=== PATIENT | male | born 1960 | race Caucasian/White ===

== ENCOUNTER 2017-12-05 08:58 | Emergency (ER) | payer OTHER, SELFPAY ==
[2017-12-05 08:59] VITALS: BP 156/86; PULSE 84; RESP 16; TEMP 36; O2SAT 95; BMI 33.0
--- NOTE | 2017-12-05 09:29 | ED.VISSUMM ---
- ER Visit Summary Date of Service: 12/05/17 Chief Complaint: Possible morphine withdrawal History of Present Illness: The patient is a 56 M who has a morphine pump. He is concerned the pump was not working appropriately. The last 1 week he has had waxing and waning body aches and fatigue similar to prior bouts of withdrawal when the pump is not functioning appropriately. His pump was placed in March 2017 and is refilled every 3 months. He is next scheduled to have it refilled the end of November. Patient is getting 6.5 mg of morphine per day from his morphine pump. Physical Examination: Vital signs are unremarkable. Patient's lying in bed no acute distress. Head neck examination is unremarkable. Heart is regular rate and rhythm with systolic ejection murmur. Lung sounds are grossly clear. Abdomen is soft nontender. Pain pump is palpable in the left lower quadrant. Test Results: CBC and chemistry studies are unremarkable. Emergency Department Course and Treatment: She was initially given 2 mg of IV morphine along with Zofran. On repeat evaluation he did report his symptoms were improved. I discussed his care with the office staff for his pain management doctor. A request has been sent off to the practitioner who is covering today as far as any other medication that may be needed. They will interrogate his pain pump in 2 days. We will give the patient a single dose of morphine 4 mg IV prior to discharge. Any further prescriptions will come from pain management. Treatment Plan: [] Disposition: Discharge Impression: 1. Body aches, improved 2. Pain pump malfunction This note was generated with [employer] dictation software. It may contain incorrect words, spelling, and punctuation that were not noted in review of the chart prior to signing ED Disposition - Plan for ED Patient: Chief Complaint: General Illness Referrals: Lori Santana DO [Primary Care Provider] -
[2017-12-05] MEDS: Morphine 2 MG/ML Syringe IV (09:57)
[2017-12-05] MEDS: Ondansetron 4 MG/2 ML Vial IV ×2 (09:58→11:24)
[2017-12-05] MEDS: 0.9% Normal Saline 1,000 ML 150 ML IV (09:58)
[2017-12-05 10:02] LABS: Absolute Lymphocyte Count 1.08 X10^3/ul (0.83-4.51); Absolute Neutrophil Count 5.1 X10^3/uL (2.0-7.7); Basophil# 0.03 X10^3/uL; Basophil% 0.5 % (0-1); Eosinophil# 0.06 X10^3/uL; Eosinophils% 0.9 % (0-5); Hematocrit 45.6 % (40-54); Hemoglobin 15.7 g/dl (13.0-16.5); Lymphocyte # 1.08 X10^3/ul (4.0); Lymphocyte % 16.2 % (19-41); Mean Corp Hgb Conc 34.4 g/gl (32-36); Mean Corpuscular Hgb 30.3 pg (27.0-32.0); Mean Corpuscular Volume 87.9 fL (80-94); Mean Platelet Vol. 9.6 fl (6.2-12.0); Monocyte# 0.42 X10^3/uL; Monocyte% 6.3 % (0-10); Neutrophil # 5.06 X10^3/uL (2.7-7.7); Neutrophil % 76.1 % (47-70); Platelet Count 120 K/mm3 (150-450); RBC Distribution Width CV 13.6 % (11.6-14.6); RBC Distribution Width SD 43.3 fl (35.1-43.9); Red Blood Count 5.19 M/mm3 (4.6-6.2); White Blood Count 6.7 K/mm3 (4.4-11.0)
[2017-12-05 10:05] LABS: POSITIVE COUNT NO; POSITIVE DIFFERENTIAL NO; POSITIVE MORPHOLOGY NO
[2017-12-05 10:11] LABS: Anion Gap 5 (5-15); BUN 13 mg/dL (7-18); BUN/Creat Ratio 17.3 RATIO (10-20); Calcium,Total 8.8 mg/dL (8.5-10.1); Chloride 106 mmol/L (98-107); Creatinine, Serum 0.75 mg/dL (0.70-1.30); EST Glomerular Filtration Rate 114 mL/min (>60); Est Glom Filt Rate - Afr Amer 138 mL/min (>60); Estimated Creatinine Clearance 117.13 ml/min; Glucose 107 mg/dL (74-106); Potassium 3.8 mmol/L (3.5-5.1); Sodium Level 141 mmol/L (136-145)
--- NOTE | 2017-12-05 11:13 | ED.DEP ---
ED Disposition - Plan for ED Patient: Disposition: Home or Assisted Living Chief Complaint: General Illness Instructions: ED Withdrawal Narcotic Referrals: Lori Santana DO [Primary Care Provider] - Additional Instructions: Follow-up for interrogation of your pain pump on Tuesday as scheduled. Any further pain prescriptions will come from your pain management team.
[2017-12-05] MEDS: Morphine 4 MG/ML Syringe IV (11:24)
[2017-12-05 11:26] VITALS: BP 138/79; PULSE 80; RESP 15; O2SAT 88
== END 2017-12-05 11:47 | disposition home or self-care (01) ==
PROVIDERS: Emergency Provider Emergency Medicine
DX: R52 Pain, unspecified (principal); T85.615A Breakdown (mechanical) of other nervous system device, implant or graft, initial encounter; I50.9 Heart failure, unspecified; J44.9 Chronic obstructive pulmonary disease, unspecified; I27.20 Pulmonary hypertension, unspecified; J96.10 Chronic respiratory failure, unspecified whether with hypoxia or hypercapnia; Z87.891 Personal history of nicotine dependence; Z79.51 Long term (current) use of inhaled steroids; Z99.81 Dependence on supplemental oxygen; Z79.899 Other long term (current) drug therapy
CPT/HCPCS: 80048; 85025; 96361; 96374; 96375; 96376; 99283; J7030; A4216; J2405

== ENCOUNTER 2017-12-06 10:34 | Emergency (ER) | payer OTHER, SELFPAY ==
[2017-12-06 10:35] VITALS: BP 158/97; PULSE 82; RESP 16; TEMP 36.5; O2SAT 90; BMI 33.5
--- NOTE | 2017-12-06 11:08 | ED.VISSUMM ---
- ER Visit Summary Date of Service: 12/06/17 Chief Complaint: Withdrawal History of Present Illness: The patient is a 56 M who presents because of withdrawal from morphine. His did most of the speaking. She informed me that his pump is not functioning properly. He is scheduled to have the pump interrogated tomorrow December 07. He was seen December 05. Dr. De La Torre's note was read in its entirety. It specifically noted that medication for his treatment is to be directed and supervised by his pain management team. He was prescribed 3 medicines yesterday, which the states is not working properly. His symptoms of withdrawal are weakness and fatigue. He apparently is on 6.5 mg of morphine per 24 hours. I informed the that his symptoms are not consistent with withdrawal. She became argumentative. She then informed me that he can from this. She states he only has 5 years to live. I informed her that her statements are incorrect. One does not from opiate withdrawal. It is unfortunate that he has been on opiates and dependent on opiates for the past 15 years. The medications he was prescribed by the pain management position were appropriate to control any symptoms of withdrawal. She then informed me here. I informed her that I read Dr. De La Torre's note, the physician that saw him yesterday, and she specifically documented that any management of his pain is to be done by the pain management team. She became irate. I informed her I apologize you feel this way. I informed her that I would honor what was written by Dr. De La Torre. I recommended that she contact her 's pain management team. Physical Examination: Signs are remarkable for slight elevation blood pressure he is not tachycardic or tachypneic. Heart is regular. Unable to perform lung exam because he interrupted me and stated he would be leaving. He is not hyperreflexic. He has a prosthetic left lower extremity. He has no tremors. There is no diaphoresis. There is no piloerection. Test Results: No tests are indicated Emergency Department Course and Treatment: Patient and spouse were told that morphine would not be administered since the half-life is very short and would not last for the 24 hours needed until he is seen by the pump customer care representative to interrogate the pump to determine if it is malfunctioning etc. Furthermore, the patient was told he was prescribed appropriate medicine yesterday. If he has an issue with the medicine that was prescribed he should contact his pain management physician. Treatment Plan: To contact pain management physician Disposition: Discharged to home Impression: 1. Opiate dependency 2. Reported opiate withdrawal 3. History of VSD with cardiomyopathy 4. History of obstructive sleep apnea 5. Secondary pulmonary hypertension This note was generated with [employer] dictation software. It may contain incorrect words, spelling, and punctuation that were not noted in review of the chart prior to signing ED Disposition - Plan for ED Patient: Disposition: Home or Assisted Living Chief Complaint: Other, Pain/Inj Instructions: Pain Management Referrals: Lori Santana DO [Primary Care Provider] - As Needed Additional Instructions: Recommend contacting your maintenance painter apprentice to discuss your concerns.
--- NOTE | 2017-12-06 11:17 | ED.DCSUM_ITS ---
- ER Visit Summary Date of Service: 12/06/17 Chief Complaint: Withdrawal History of Present Illness: The patient is a 56 M who presents because of withdrawal from morphine. His did most of the speaking. She informed me that his pump is not functioning properly. He is scheduled to have the pump interrogated tomorrow December 07. He was seen December 05. Dr. De La Torre's note was read in its entirety. It specifically noted that medication for his treatment is to be directed and supervised by his pain management team. He was prescribed 3 medicines yesterday, which the states is not working properly. His symptoms of withdrawal are weakness and fatigue. He apparently is on 6.5 mg of morphine per 24 hours. I informed the that his symptoms are not consistent with withdrawal. She became argumentative. She then informed me that he can from this. She states he only has 5 years to live. I informed her that her statements are incorrect. One does not from opiate withdrawal. It is unfortunate that he has been on opiates and dependent on opiates for the past 15 years. The medications he was prescribed by the pain management position were appropriate to control any symptoms of withdrawal. She then informed me here. I informed her that I read Dr. De La Torre's note, the physician that saw him yesterday, and she specifically documented that any management of his pain is to be done by the pain management team. She became irate. I informed her I apologize you feel this way. I informed her that I would honor what was written by Dr. De La Torre. I recommended that she contact her 's pain management team. Physical Examination: Signs are remarkable for slight elevation blood pressure he is not tachycardic or tachypneic. Heart is regular. Unable to perform lung exam because he interrupted me and stated he would be leaving. He is not hyperreflexic. He has a prosthetic left lower extremity. He has no tremors. There is no diaphoresis. There is no piloerection. Test Results: No tests are indicated Emergency Department Course and Treatment: Patient and spouse were told that morphine would not be administered since the half-life is very short and would not last for the 24 hours needed until he is seen by the pump career representative to interrogate the pump to determine if it is malfunctioning etc. Furthermore, the patient was told he was prescribed appropriate medicine yesterday. If he has an issue with the medicine that was prescribed he should contact his pain management physician. Treatment Plan: To contact pain management physician Disposition: Discharged to home Impression: 1. Opiate dependency 2. Reported opiate withdrawal 3. History of VSD with cardiomyopathy 4. History of obstructive sleep apnea 5. Secondary pulmonary hypertension This note was generated with [employer] dictation software. It may contain incorrect words, spelling, and punctuation that were not noted in review of the chart prior to signing ED Disposition - Plan for ED Patient: Disposition: Home or Assisted Living Chief Complaint: Other, Pain/Inj Instructions: Pain Management Referrals: Lori Santana DO [Primary Care Provider] - As Needed Additional Instructions: Recommend contacting your paint grinder stone mill to discuss your concerns.
--- NOTE | 2017-12-06 11:24 | ED.RN ---
PT LEFT PRIOR TO THIS NURSE SEEING THE PT. PT LEFT PRIOR TO RECEIVING D/C INSTRUCTIONS.
--- NOTE | 2017-12-06 11:42 | ED.RN ---
PT AMBULATED INTO TRIAGE WITH NO DISTRESS NOTED AND STEADY GAIT. PT ANSWERED ALL QUESTIONS WITHOUT DISTRESS AND WAS FULLY ALERT. WHEN ARRIVED PT BECAME QUIET AND SPOKE FOR PT THE REMAINDER OF THE TRIAGE PERIOD. PT ALSO REQUIRED ASSISTANCE GETTING OUT OF THE CHAIR AND WALKED SLOWLY WITH A LIMP ENROUTE TO THE ER ROOM. PT'S BEHAVIOR COMPLETELY CHANGED AFTER THE ARRIVED.
== END 2017-12-06 11:45 | disposition home or self-care (01) ==
PROVIDERS: Emergency Provider Emergency Medicine
DX: F11.20 Opioid dependence, uncomplicated (principal); Q21.0 Ventricular septal defect; I42.9 Cardiomyopathy, unspecified; G47.33 Obstructive sleep apnea (adult) (pediatric); I27.20 Pulmonary hypertension, unspecified; E66.9 Obesity, unspecified; Z87.891 Personal history of nicotine dependence
CPT/HCPCS: 99282

== ENCOUNTER → 2018-05-23 11:00 | Outpatient (CLI) | payer MEDICAID, SELFPAY ==
[2018-05-23 11:32] VITALS: PULSE 103; PULSE 104; PULSE 109; PULSE 83; PULSE 88; PULSE 91; O2SAT 86; O2SAT 89; O2SAT 90; O2SAT 91; O2SAT 92; O2SAT 94
--- NOTE | 2018-05-23 11:38 | CPS ---
Patient wears 4 lpm at home. Patient came in with 4lpm pulse dose. Patient started testing on room air due to SpO2 being 91% for over 10 minutes. Patient walked under 500 ft before he dropped to 86%. Patient placed his 4 lpm pulse dose oxygen on and recovered to 92%. Patient then walked over 600 ft with SpO2 >89%.
--- NOTE | 2018-05-23 15:21 | PCM.PSN.6M ---
PSN 6 Minute Walk Test - 6 Minute Walk Test 6 Minute Walk Test: 6 Minute Walk Test PSN:6-Minute Walk Test Start: 05/23/18 11:31 Freq: Status: Active Protocol: [id number].6MINW Document 05/23/18 11:32 [place] (Rec: 05/23/18 11:41 [facility] [id number]) 6 Minute Walk Test Date Performed 05/23/18 Time Performed 11:00 Height 5 ft 11 in Weight: 99.79 kg Weight in Pounds 220.[address]: Regan Brand Assistive device used: None Pre-test Oxygen Delivery Method Room Air Pulse Ox (%) 91 Pulse Rate (60-100 beats/min) 88 Dyspnea Dawson Scale (0-10) 0 Exertion Dawson Scale (6-20) 6 1st minute Oxygen Delivery Method Room Air Pulse Ox (%) 90 Pulse Rate (60-100 beats/min) 91 2nd minute Oxygen Delivery Method Room Air Pulse Ox (%) 86 Pulse Rate (60-100 beats/min) 109 H 3rd minute Oxygen Flow Rate (L/min) (L/min) 4 Oxygen Delivery Method Nasal Cannula Pulse Ox (%) 92 Pulse Rate (60-100 beats/min) 91 4th minute Oxygen Flow Rate (L/min) (L/min) 4 Oxygen Delivery Method Nasal Cannula Pulse Ox (%) 90 Pulse Rate (60-100 beats/min) 103 H 5th minute Oxygen Flow Rate (L/min) (L/min) 4 Oxygen Delivery Method Nasal Cannula Pulse Ox (%) 90 Pulse Rate (60-100 beats/min) 103 H 6th minute Oxygen Flow Rate (L/min) (L/min) 4 Oxygen Delivery Method Nasal Cannula Pulse Ox (%) 89 Pulse Rate (60-100 beats/min) 104 H Dyspnea Dawson Scale (0-10) 3 Exertion Dwason Scale (6-20) 12 Post-test Oxygen Flow Rate (L/min) (L/min) 4 Oxygen Delivery Method Nasal Cannula Pulse Ox (%) 94 Pulse Rate (60-100 beats/min) 83 Full Laps Walked 19 Partial Lap, Number of Tiles Walked 15 Total Distance Walked (ft) 1136 05/23/18 11:38 Cardiopulmonary Services by Chela De Patient wears 4 lpm at home. Patient came in with 4lpm pulse dose. Patient started testing on room air due to SpO2 being 91% for over 10 minutes. Patient walked under 500 ft before he dropped to 86%. Patient placed his 4 lpm pulse dose oxygen on and recovered to 92%. Patient then walked over 600 ft with SpO2 >89%. Initialized on 05/23/18 11:38 - END OF NOTE - Interpretation Interpretation: The patient was noted to be 91% on room air while at rest. The patient desaturated to 86% with exertion in the second minute. The patient was then placed on 4 L pulse dose with improvement to 92% and maintained appropriate saturations. These findings are consistent with a respiratory limitation exercise tolerance. - Recommendations Recommendations: The patient requires no supplemental oxygen at rest, but should be using 4 L pulse dose with any exertion.
== END ==
PROVIDERS: Visit Provider Internal Medicine Critical Care Medicine
DX: I27.20 Pulmonary hypertension, unspecified (principal); J44.9 Chronic obstructive pulmonary disease, unspecified; J96.11 Chronic respiratory failure with hypoxia
CPT/HCPCS: 94618

== ENCOUNTER → 2018-06-05 07:54 | Outpatient (CLI) | payer MEDICAID, SELFPAY ==
--- NOTE | 2018-06-05 07:55 | ECHOD_ITS ---
Reason For Study: PHTN Procedure This was a 2D Doppler, Color Flow transthoracic echocardiogram. Exam performed in department. Left Ventricle Normal size and thickness. 1.2 cm mid VSD noted with no appreciable shunt by color flow doppler. The estimated ejection fraction is 65 %. No regional wall motion abnormalities noted. Right Ventricle Normal size and thickness. Normal systolic function. Atria The left atrium is severely enlarged. The right atrium is moderately enlarged. Normal atrial septum. Mitral Valve The mitral valve is structurally normal. No prolapse or stenosis seen. Tricuspid Valve Normal tricuspid valve. Moderate (2+) tricuspid valve insufficiency. Right ventricular systolic pressure estimated to be 99 mmHg. Severe pulmonary hypertension. Aortic Valve Trisinus/trileaflet aortic valve. Mild diffuse aortic valve thickening. Trivial aortic valve insufficiency. Pulmonic Valve Moderate diffuse pulmonic valve thickening. Moderate pulmonic valve insufficiency identified. Great Vessels Normal aortic root. Normal arch. Normal inferior vena cava. Inferior vena cava collapse with sniff. Pericardium/Pleural No pericardial effusion. MMode/2D Measurements & Calculations LVIDd: 6.2 cm IVSd: 0.97 cm Ao root diam: 4.3 cm LVIDs: 3.4 cm LVPWd: 1.1 cm FS: 45.3 % LAV(MOD-bp): 61.6 ml RVOT diam: 2.8 cm LVAd ap4: 39.2 cm2 LAV(MOD-bp) Indexed: 28.1 ml/m2 EDV(MOD-sp4): 137.7 ml LAV(MOD-sp2): 62.8 ml EDV(sp4-el): 144.5 ml LAV(MOD-sp4): 56.6 ml LVAs ap4: 18.4 cm2 ESV(MOD-sp4): 35.0 ml ESV(sp4-el): 37.4 ml EF(MOD-sp4): 74.6 % EF(sp4-el): 74.1 % SV(MOD-sp4): 102.7 ml SV(sp4-el): 107.0 ml LA A4 area: 22.1 cm2 RA A4 area: 25.2 cm2 Doppler Measurements & Calculations MV E max vineet: 83.9 cm/sec Lat Peak E' Vineet: 7.9 cm/sec Med Peak E' Vineet: 4.3 cm/sec MV A max vineet: 104.1 cm/sec E/E' lat: 10.6 E/E' med: 19.4 MV E/A: 0.81 Ao V2 max: 170.7 cm/sec LV V1 max: 145.5 cm/sec PA V2 max: 299.1 cm/sec Ao max P.7 mmHg LV V1 max P.5 mmHg PA max PG (full): 27.9 mmHg Ao V2 mean: 125.5 cm/sec PA V2 mean: 225.1 cm/sec Ao mean P.1 mmHg PA mean PG (full): 16.7 mmHg Ao V2 VTI: 38.2 cm PA V2 VTI: 69.8 cm PI end-d vineet: 237.1 cm/sec SV(RVOT): 220.6 ml TR max vineet: 484.0 cm/sec TR max P.7 mmHg Interpretation Summary The estimated ejection fraction is 65 %. The left atrium is severely enlarged. The right atrium is moderately enlarged. Moderate (2+) tricuspid valve insufficiency. Right ventricular systolic pressure estimated to be 99 mmHg. Severe pulmonary hypertension. Trivial aortic valve insufficiency. Moderate pulmonic valve insufficiency identified. 1.2 cm mid VSD noted with no appreciable shunt by color flow doppler. Compared to echo report dated 08/03/2017, no appreciable changes noted. Ordering Physician: Jim Ferrari Referring Physician: Lori Santana Performed By: Dina Castañeda RDCS, RVT
== END ==
PROVIDERS: Referring Provider Internal Medicine Cardiovascular Disease; Visit Provider Internal Medicine Cardiovascular Disease
DX: I27.89 Other specified pulmonary heart diseases (principal); I50.9 Heart failure, unspecified; I27.20 Pulmonary hypertension, unspecified; Q21.0 Ventricular septal defect; G47.33 Obstructive sleep apnea (adult) (pediatric)
CPT/HCPCS: 93306

== ENCOUNTER → 2018-09-01 07:39 | Outpatient (CLI) | payer MEDICAID, SELFPAY ==
[2018-06-14 08:01] VITALS: BMI 31.6
--- NOTE | 2018-09-01 13:05 | PFT ---
INTRODUCTION: The patient is a 57-year-old male that presents for pulmonary function studies secondary to a diagnosis of COPD. Respiratory therapy reports good patient effort. Bronchodilators were used during testing. INTERPRETATION: Forced expiration spirometry demonstrates the presence of a severe large airways obstructive ventilatory defect. There was a significant response to aerosolized bronchodilators noted. Spirograms are of good quality do not plateau indicating slow emptying of the lungs. Body plethysmography was performed and reveals an elevated RV to 146% of predicted, indicative of underlying air trapping. Diffusing capacity by single breath CO is mildly reduced at 67% of predicted. IMPRESSION: These pulmonary function studies demonstrate the presence of a partially reversible severe large airways obstructive ventilatory defect with associated air trapping and mild reduction in diffusing capacity.
== END ==
PROVIDERS: Referring Provider Internal Medicine Critical Care Medicine; Visit Provider Internal Medicine Critical Care Medicine
DX: I27.20 Pulmonary hypertension, unspecified (principal); J44.9 Chronic obstructive pulmonary disease, unspecified; J96.11 Chronic respiratory failure with hypoxia
CPT/HCPCS: 94060; 94726; 94729

== ENCOUNTER → 2019-06-08 | Outpatient (CLI) | payer MEDICAID, SELFPAY ==
[2019-05-22 10:44] VITALS: BMI 31.4
[2019-05-29 07:22] VITALS: BMI 31.1
--- NOTE | 2019-06-08 08:34 | ECHOD_ITS ---
Reason For Study: PHTN Procedure This was a 2D Doppler, Color Flow transthoracic echocardiogram. Exam performed in department. Left Ventricle Severely dilated left ventricle. D shaped septum in systole and diastole. 1.2 cm mid cavitary VSD. The estimated ejection fraction is 65 %. Stage 1 diastolic dysfunction. No regional wall motion abnormalities noted. Right Ventricle Severely dilated right ventricle. A moderator band is seen in the right ventricle. Normal systolic function. Atria The left atrium is severely enlarged. The right atrium is severely enlarged. Normal atrial septum. Mitral Valve Normal mitral valve. Tricuspid Valve Normal tricuspid valve. Mild (1+) tricuspid valve insufficiency. Right ventricular systolic pressure estimated to be 98 mmHg. Severe pulmonary hypertension. Aortic Valve Normal aortic valve. Trisinus/trileaflet aortic valve. Pulmonic Valve Severe diffuse pulmonic valve thickening. Mild to moderate stenosis of the pulmonic valve. Moderate (2+) pulmonic valve insufficiency. Great Vessels Normal aortic root. Normal arch. The inferior vena cava is dilated. Inferior vena cava collapse with sniff. Pericardium/Pleural No pericardial effusion. MMode/2D Measurements & Calculations LVIDd: 5.7 cm IVSd: 1.2 cm Ao root diam: 4.6 cm LVIDs: 3.7 cm LVPWd: 1.2 cm RVDd: 5.8 cm FS: 35.1 % LAV(MOD-bp): 81.7 ml RVOT diam: 2.8 cm LVAd ap4: 35.9 cm2 LAV(MOD-bp) Indexed: 37.0 ml/m2 EDV(MOD-sp4): 125.6 ml LAV(MOD-sp2): 72.1 ml EDV(sp4-el): 129.5 ml LAV(MOD-sp4): 76.5 ml LVAs ap4: 19.3 cm2 ESV(MOD-sp4): 41.4 ml ESV(sp4-el): 43.5 ml EF(MOD-sp4): 67.1 % EF(sp4-el): 66.4 % SV(MOD-sp4): 84.3 ml SV(sp4-el): 86.1 ml LA A4 area: 25.2 cm2 LA dimension(2D): 5.2 cm RA A4 area: 23.2 cm2 Time Measurements MV dec time: 0.29 sec Doppler Measurements & Calculations MV E max vineet: 92.0 cm/sec Lat Peak E' Vineet: 8.3 cm/sec Med Peak E' Vineet: 3.9 cm/sec MV A max vineet: 98.4 cm/sec E/E' lat: 11.1 E/E' med: 23.4 MV E/A: 0.93 Ao V2 max: 148.6 cm/sec LV V1 max: 137.1 cm/sec PA V2 max: 251.8 cm/sec Ao max P.8 mmHg LV V1 max P.5 mmHg PA max PG (full): 20.5 mmHg PA V2 mean: 194.5 cm/sec PA mean PG (full): 13.5 mmHg PA V2 VTI: 58.6 cm SV(RVOT): 135.7 ml TR max vineet: 442.9 cm/sec TR max P.9 mmHg Interpretation Summary Severely dilated left ventricle. The estimated ejection fraction is 65 %. Stage 1 diastolic dysfunction. 1.2 cm mid cavitary VSD with no apparent crossover by color flow doppler. Severely dilated right ventricle. D shaped septum in systole and diastole. The left atrium is severely enlarged. The right atrium is severely enlarged. Mild (1+) tricuspid valve insufficiency. Right ventricular systolic pressure estimated to be 98 mmHg. Severe pulmonary hypertension. Mild to moderate stenosis of the pulmonic valve. Moderate (2+) pulmonic valve insufficiency. The inferior vena cava is dilated Compared to echo report dated 06/05/2018, no apparent changes noted, Ordering Physician: Jim Ferrari Referring Physician: MESSI SADLER Performed By: Kristine Martines, RASHARD, RVT
== END | disposition home or self-care (01) ==
LOC: CVS 08:32
PROVIDERS: Referring Provider Internal Medicine Cardiovascular Disease; Visit Provider Internal Medicine Cardiovascular Disease
DX: I27.20 Pulmonary hypertension, unspecified (principal); G47.33 Obstructive sleep apnea (adult) (pediatric); I27.89 Other specified pulmonary heart diseases; I50.9 Heart failure, unspecified; Q21.0 Ventricular septal defect
CPT/HCPCS: 93306

== ENCOUNTER → 2020-04-24 | Outpatient (CLI) | payer MEDICARE, MEDICAID, SELFPAY ==
[2020-02-28 09:54] VITALS: BMI 31.2
[2020-04-24 08:29] LABS: Absolute Lymphocyte Count 1.61 X10^3/uL (0.83-4.51); Absolute Neutrophil Count 2.5 X10^3/uL (2.0-7.7); Basophil# 0.04 X10^3/uL; Basophil% 0.8 % (0-1); Eosinophil# 0.28 X10^3/uL; Eosinophils% 5.7 % (0-5); Hemoglobin 13.8 g/dL (13.0-16.5); Lymphocyte # 1.61 X10^3/ul (4.0); Lymphocyte % 32.9 % (19-41); Mean Corp Hgb Conc 32.9 g/dL (32-36); Mean Corpuscular Hgb 30.1 pg (27.0-32.0); Mean Corpuscular Volume 91.5 fL (80-94); Mean Platelet Vol. 9.6 fl (6.2-12.0); Monocyte# 0.43 X10^3/uL; Monocyte% 8.8 % (0-10); NRBC Flagged by Analyzer 0 % (0-5); Neutrophil # 2.52 X10^3/uL (2.7-7.7); Neutrophil % 51.6 % (47-70); Platelet Count 134 K/mm3 (150-450); RBC Distribution Width CV 14.3 % (11.6-14.6); RBC Distribution Width SD 47.2 fl (35.1-43.9); Red Blood Count 4.59 M/mm3 (4.6-6.2); White Blood Count 4.9 K/mm3 (4.4-11.0)
[2020-04-24 09:02] LABS: ALB/GLOB Ratio 1.1 RATIO (0.9-2.4); AST(SGOT) 13 U/L (15-37); Alanine Aminotransfer ALT/SGPT 20 U/L (16-61); Albumin, Serum 3.9 g/dL (3.2-5.0); Alkaline Phosphatase 60 U/L (45-117); Anion Gap 5 (5-15); BUN 21 mg/dL (7-18); BUN/Creat Ratio 27.4 RATIO (10-20); Calcium,Total 8.3 mg/dL (8.5-10.1); Chloride 105 mmol/L (98-107); Cholesterol 170 mg/dL (200); Creatinine, Serum 0.77 mg/dL (0.70-1.30); EST Glomerular Filtration Rate 110 mL/min (>60); Est Glom Filt Rate - Afr Amer 134 mL/min (>60); Globulin 3.5 g/dL (2.2-4.2); Glucose 98 mg/dL (74-106); High Density Lipoprotein 38 mg/dL; PSA,Total - Annual Screen 1.28 ng/mL (0.00-4.00); Potassium 4.3 mmol/L (3.5-5.1); Protein, Total 7.4 g/dL (6.4-8.2); Sodium Level 138 mmol/L (136-145); T4 Free Direct 1.24 ng/dL (0.76-1.46); Thyroid Stim Hormone (TSH) 1.72 uIU/mL (0.358-3.74); Triglycerides 72 mg/dL; Very Low Density Lipoprotein 14 mg/dL (5-40)
[2020-04-24 09:39] LABS: Vitamin D,25 Hydroxy 41.2 ng/mL
== END | disposition home or self-care (01) ==
LOC: LAB 07:50
PROVIDERS: Nurse Practitioner Family
DX: I27.20 Pulmonary hypertension, unspecified (principal); I50.9 Heart failure, unspecified; R53.83 Other fatigue; Z12.5 Encounter for screening for malignant neoplasm of prostate
CPT/HCPCS: 36415; 80053; 80061; 82306; 84153; 84403; 84439; 84443; 85025; G0103

== ENCOUNTER → 2020-10-17 09:40 | Outpatient (CLI) | payer MEDICARE, MEDICAID, SELFPAY ==
[2020-10-09 10:18] VITALS: BMI 32.5
--- NOTE | 2020-10-17 09:44 | ECHOD_ITS ---
Reason For Study: CONGENITAL HEART DISEASE Procedure This was a 2D Doppler, Color Flow transthoracic echocardiogram. The study was technically difficult. Exam performed in department. Left Ventricle Mildly dilated left ventricle. D shaped septum in systole and diastole. Left ventricular systolic function is normal. The estimated ejection fraction is 60 %. Transmitral doppler flow suggestive of impaired relaxation of left ventricle. No regional wall motion abnormalities noted. Right Ventricle Moderately dilated right ventricle. A moderator band is seen in the right ventricle. Normal systolic function. Atria The left atrium is moderately enlarged. The right atrium is moderately enlarged. No doppler evidence for ASD. Mitral Valve There is no mitral annular calcification. Normal mitral valve. Trivial mitral valve insufficiency. Tricuspid Valve Normal tricuspid valve. Mild tricuspid valve insufficiency. Right ventricular systolic pressure estimated to be 84 mmHg. Aortic Valve Trisinus/trileaflet aortic valve. Mild focal aortic valve calcification. Pulmonic Valve Moderate focal pulmonic valve calcification. Mild to moderate stenosis of the pulmonic valve. Mild- Moderate (1-2+) eccentric pulmonic valve insufficiency. Great Vessels Moderately dilated aortic root. Pericardium/Pleural No pericardial effusion. MMode/2D Measurements & Calculations LVIDd: 6.0 cm IVSd: 1.1 cm Ao root diam: 4.6 cm LVIDs: 4.1 cm LVPWd: 1.1 cm RVDd: 4.9 cm FS: 31.1 % LAV(MOD-bp): 78.3 ml RVOT diam: 2.2 cm LA A4 area: 26.1 cm2 LAV(MOD-bp) Indexed: 34.8 ml/m2 LAV(MOD-sp2): 70.6 ml LAV(MOD-sp4): 71.0 ml LA dimension(2D): 5.0 cm RA A4 area: 25.9 cm2 Time Measurements MV dec time: 0.28 sec Doppler Measurements & Calculations MV E max vineet: 91.9 cm/sec Lat Peak E' Vineet: 7.3 cm/sec Med Peak E' Vineet: 4.6 cm/sec MV A max vineet: 141.0 cm/sec E/E' lat: 12.6 E/E' med: 20.0 MV E/A: 0.65 Ao V2 max: 165.8 cm/sec LV V1 max: 147.4 cm/sec PA V2 max: 157.4 cm/sec Ao max P.0 mmHg LV V1 max P.7 mmHg PA max PG (full): 5.8 mmHg LV V1 mean P.2 mmHg PA V2 mean: 82.9 cm/sec LV V1 mean: 109.8 cm/sec PA mean PG (full): -0.10 mmHg LV V1 VTI: 31.4 cm PA V2 VTI: 24.5 cm PI end-d vineet: 233.3 cm/sec SV(RVOT): 94.4 ml TR max vineet: 448.6 cm/sec TR max P.6 mmHg Interpretation Summary The study was technically difficult. Mildly dilated left ventricle. D shaped septum in systole and diastole. Left ventricular systolic function is normal. The estimated ejection fraction is 60 %. Moderately dilated right ventricle. A moderator band is seen in the right ventricle. The left atrium is moderately enlarged. The right atrium is moderately enlarged. Trivial mitral valve insufficiency. Mild tricuspid valve insufficiency. Mild focal aortic valve calcification. Moderate focal pulmonic valve calcification. Mild to moderate stenosis of the pulmonic valve. Mild-Moderate (1-2+) eccentric pulmonic valve insufficiency. Moderately dilated aortic root. Right ventricular systolic pressure estimated to be 84 mmHg c/w severe pulmonary hypertension. Transmitral doppler flow suggestive of impaired relaxation of left ventricle Comment: 2D echocardiographic images demonstrate an echo lucency in the mid interventricular septum approximately 1.2 cm in diameter compatible with a ventricular septal defect with no color flow Doppler findings consider definitive for interventricular shunting. Ordering Physician: Hali Lopez Referring Physician: Hali Lopez Performed By: Kristine Martines, RDCS, RVT
== END ==
PROVIDERS: Referring Provider Physician Assistant Medical; Visit Provider Physician Assistant Medical
DX: Z98.890 Other specified postprocedural states (principal)
CPT/HCPCS: 93306

== ENCOUNTER 2020-10-23 09:45 | Outpatient (RCR) | payer MEDICARE, MEDICAID, SELFPAY ==
[2020-10-09 10:18] VITALS: BMI 32.5
== END 2020-10-23 23:59 ==
LOC: IMMUN 09:45
PROVIDERS: Visit Provider Family Medicine
DX: Z23 Encounter for immunization (principal)
CPT/HCPCS: 0011A; 0012A; 91301

== ENCOUNTER → 2020-11-25 08:21 | Outpatient (CLI) | payer MEDICARE, SELFPAY ==
[2020-10-09 10:18] VITALS: BMI 32.5
[2020-11-25 10:05] LABS: Vitamin B12 409 pg/mL (211-911)
[2020-11-25 10:32] LABS: Iron 59 ug/dL (65-175); Iron Binding Capacity,Total 388 ug/dL (250-450); PERCENT IRON SATURATION 15.2 % (15.0-55.0)
[2020-11-27 18:42] LABS: Vitamin D 1,25-Dihydroxy 48.5 pg/mL (19.9-79.3)
[2020-11-28 12:07] LABS: Testosterone, % Free 2.06 % (1.50-4.20); Testosterone, Free 3.19 ng/dL (5.00-21.00)
[2020-11-28 16:00] LABS: Testosterone, Total 155 ng/dL (264-916); Thyroid Peroxidase AB < 9 IU/mL (0-34)
== END ==
PROVIDERS: PCP Nurse Practitioner Adult Health; Referring Provider Nurse Practitioner Adult Health; Visit Provider Nurse Practitioner Adult Health
DX: R53.83 Other fatigue (principal)
CPT/HCPCS: 36415; 82607; 82652; 82746; 83540; 83550; 84402; 84403; 86376

== ENCOUNTER → 2021-01-15 07:54 | Outpatient (CLI) | payer MEDICARE, MEDICAID, SELFPAY ==
[2020-12-11 07:49] VITALS: BMI 32.6
[2021-01-15 08:39] VITALS: PULSE 100; PULSE 82; PULSE 90; PULSE 93; PULSE 98; PULSE 99; O2SAT 82; O2SAT 84; O2SAT 89; O2SAT 90; O2SAT 91; O2SAT 92
--- NOTE | 2021-01-15 08:46 | CPS ---
Pt wears 4 lpm pulse dose. Room air rest pt was 88%. Pt was placed back on his 4 lpm pulse dose and walk started with pt at 91%. At minute 1 pt was changed to 4 lpm continuous since saturation was only 84 % with his pulse dose. At 3 minutes pt was increased to 6 lpm . The 5th minute pt was turned to 8lpm.Pt was able to maintain his saturation for remainder of walk on 8lpm continuous.
--- NOTE | 2021-01-15 13:28 | PCM.PSN.6M ---
PSN 6 Minute Walk Test 6 Minute Walk Test 6 Minute Walk Test: 6 Minute Walk Test PSN:6-Minute Walk Test Start: 01/15/21 08:39 Freq: Status: Active Protocol: [id number].6MINW Document 01/15/21 08:39 [facility] (Rec: 01/15/21 08:51 [facility] [id number]) 6 Minute Walk Test Date Performed 01/15/21 Time Performed 08:15 Height 5 ft 11 in Weight: 230 lb Weight in Pounds 230.[address]: Dr Brand Assistive device used: None Pre-test Oxygen Flow Rate (L/min) (L/min) 4 Oxygen Delivery Method Nasal Cannula Pulse Ox (%) 91 Pulse Rate (60-100 beats/min) 82 Dyspnea Dawson Scale (0-10) 0 Exertion Dawson Scale (6-20) 6 1st minute Oxygen Flow Rate (L/min) (L/min) 4 Oxygen Delivery Method Nasal Cannula Pulse Ox (%) 84 Pulse Rate (60-100 beats/min) 100 Dyspnea Dawson Scale (0-10) 1 Reported Symptoms Increased Work of Breathing 2nd minute Oxygen Flow Rate (L/min) (L/min) 4 Oxygen Delivery Method Nasal Cannula Pulse Ox (%) 89 Pulse Rate (60-100 beats/min) 99 3rd minute Oxygen Flow Rate (L/min) (L/min) 4 Oxygen Delivery Method Nasal Cannula Pulse Ox (%) 84 Pulse Rate (60-100 beats/min) 93 Dyspnea Dawson Scale (0-10) 2 Number of Rests Taken 1 Reported Symptoms Increased Work of Breathing 4th minute Oxygen Flow Rate (L/min) (L/min) 6 Oxygen Delivery Method Nasal Cannula Pulse Ox (%) 89 Pulse Rate (60-100 beats/min) 100 5th minute Oxygen Flow Rate (L/min) (L/min) 6 Oxygen Delivery Method Nasal Cannula Pulse Ox (%) 82 Pulse Rate (60-100 beats/min) 98 Dyspnea Dawson Scale (0-10) 2 Reported Symptoms Increased Work of Breathing 6th minute Oxygen Flow Rate (L/min) (L/min) 8 Oxygen Delivery Method Nasal Cannula Pulse Ox (%) 92 Pulse Rate (60-100 beats/min) 98 Dyspnea Dawson Scale (0-10) 2 Exertion Dawson Scale (6-20) 11 Post-test Oxygen Flow Rate (L/min) (L/min) 8 Oxygen Delivery Method Nasal Cannula Pulse Ox (%) 90 Pulse Rate (60-100 beats/min) 90 Full Laps Walked 16 Partial Lap, Number of Tiles Walked 0 Total Distance Walked (ft) 944 01/15/21 08:46 Cardiopulmonary Services by Joi Santana Pt wears 4 lpm pulse dose. Room air rest pt was 88%. Pt was placed back on his 4 lpm pulse dose and walk started with pt at 91%. At minute 1 pt was changed to 4 lpm continuous since saturation was only 84 % with his pulse dose. At 3 minutes pt was increased to 6 lpm . The 5th minute pt was turned to 8lpm.Pt was able to maintain his saturation for remainder of walk on 8lpm continuous. Initialized on 01/15/21 08:46 - END OF NOTE Interpretation Interpretation: The patient ambulated 944 feet over the course of 6 minutes beginning on room air without any assistive devices. Pretesting oxygen saturation was noted to be 88% on room air. Therefore, the patient was placed on 4 L/min pulse dose oxygen with improvement of his oxygen saturations to 91%. With ambulation, the patient desaturated on several occasions requiring his supplemental oxygen to be placed to continuous flow and his rate increased to 8 L/min to maintain appropriate oxygen saturations. Recommendations Recommendations: 4 L/min of supplemental oxygen should be utilized at rest. 8 L/min is required with exertion.
== END ==
PROVIDERS: Referring Provider Internal Medicine Critical Care Medicine; Visit Provider Internal Medicine Critical Care Medicine
DX: J96.11 Chronic respiratory failure with hypoxia (principal)
CPT/HCPCS: 94618

== ENCOUNTER 2021-01-30 07:01 | Emergency (ER) | payer MEDICARE, MEDICAID, SELFPAY ==
[2020-12-11 07:49] VITALS: BMI 32.6
[2021-01-30 07:01] VITALS: BP 137/79; PULSE 85; RESP 14; TEMP 36.7; O2SAT 87; BMI 31.6
--- NOTE | 2021-01-30 07:06 | CT_ITS ---
STUDY: CT ABDOMEN AND PELVIS WITH CONTRAST REASON FOR EXAM: Male, 60 years old. 2 day history of abdominal pain and abdominal distention. RADIATION DOSAGE (If Supplied By Facility): CTDIvol = ( 13.295 ) mGy, DLP = ( 1509.57 ) mGycm TECHNIQUE: Transaxial images were obtained from the dome of the diaphragm to the symphysis pubis without oral contrast. IV 100mL Isovue-300 was administered. Sagittal and coronal images were reconstructed. Individualized dose optimization techniques were used for this CT. COMPARISON: None. FINDINGS: Increased linear markings at the right lung base as well as the right middle lobe with areas of confluence. Mild degree of increased markings at the left lung base. This is suggestive of atelectasis. Mild cardiomegaly. Mild degree of pericardial thickening in keeping with a small pericardial effusion. There is a 2.7 cm x 2.5 cm hypodense nodule in the dome of the right lobe of the liver laterally. Minimal posterior peripheral enhancement is seen. This may represent a small hemangioma. Correlation with ultrasound is recommended. There is evidence of a similar appearing nodule in the left lobe of the liver medially. This measures 1.5 cm x 1.9 cm. Small gallstone. There is mild splenomegaly. There is diffuse atrophy of the pancreas. Normal bilateral adrenal glands. Normal right kidney. 1 cm cyst in the mid posterior aspect of the left kidney. Normal visualized stomach. There is mild fluid distention of the small bowel loops. Normal colon. The appendix is visualized and appears normal. There is diffuse atherosclerotic calcification of the abdominal aorta, without a demonstrated aneurysm. Normal inferior vena cava. There is borderline retroperitoneal lymphadenopathy with enlarged nodes no greater than 10mm in the short axis diameter. Normal urinary bladder. There is a small umbilical hernia containing fat. There is a large left inguinal hernia extending into the left hemiscrotum containing mesenteric fat and nondistended small bowel loops as well as a portion of the colon. There is increased markings in the peritoneal fat within the hernia. Strangulation should be ruled out. The neck of the hernia measures 9.8 cm. There is also evidence of overlying scrotal thickening. There is evidence of a left hydrocele. There are diffuse degenerative changes of the visualized lumbar spine. 50% loss of height of the L1 vertebrae. There is evidence of a corduroy pattern of the vertebrae. This may represent an hemangioma. CT/Abdomen/Pelvis W IV Cont ONLY IMPRESSION: Large left inguinal/scrotal hernia containing bowel loops with edematous changes within the peritoneal fat suggestive of strangulation. There is evidence of a left hydrocele with thickening of the left scrotal skin. 2. Hypodense lesions are seen within the liver as described. These may represent hemangiomas although correlation with ultrasound is recommended if clinically indicated. Small pericardial effusion. Small gallstone. Electronically Signed: Silvestre Alvarado MD at 8:27 EDT , Service support ,
--- NOTE | 2021-01-30 07:07 | EKG12_ITS ---
Test Reason : ABD PAIN Blood Pressure : / mmHG Vent. Rate : 082 BPM Atrial Rate : 082 BPM P-R Int : 210 ms QRS Dur : 128 ms QT Int : 408 ms P-R-T Axes : 073 094 050 degrees QTc Int : 476 ms Sinus rhythm with 1st degree A-V block Right atrial enlargement Right bundle branch block Abnormal ECG Confirmed by ALEJO PLUMMER, SEA ([id number]), associate editor KATHERIN CHAMPION ([id number]) on 02/02/2021 10:34:26 AM Referred By: DINESH Confirmed By:SEA DHILLON MD
--- NOTE | 2021-01-30 07:08 | EX.ED.DYSGE1 ---
HPI History of Present Illness Chief Complaint: Abd Pain Informant: patient Onset/Context/Timing Onset: Days Context: Gradual Onset Timing: Continuous Current Severity: Moderate Maximum Severity: Moderate Narrative Narrative: The patient is a 60-year-old male medical history significant for CHF, COPD, pulmonary hypertension, and chronic pain who presents to the emergency department with abdominal distention and difficulty moving his bowels. Patient states for the past 2 days, he has had a difficult time moving his bowels. He states he is been unable to pass any stool. He has been nauseated without vomiting. He is concerned that he may have a bowel obstruction. He is never been formally diagnosed with bowel obstruction. He has a large inguinal hernia. He states that he has seen surgery, but because of his multiple comorbidities he was not an operative candidate. He denies fever but does admit to some chills. Prior similar symptoms: No Recent Illness/Hospitalization: No [facility] Medical History Acute CHF (congestive heart failure) Allergic rhinitis Cardiomegaly Chronic hypoxemic respiratory failure Chronic pain disorder Chronic sinusitis COPD (chronic obstructive pulmonary disease) PAYTON (dyspnea on exertion) Eisenmenger complex History of left below knee amputation Inguinal hernia Localized edema Noncompliance Nonrheumatic tricuspid valve regurgitation Obesity JERICA (obstructive sleep apnea) Pulmonary hypertension Pulmonary regurgitation Right ventricular dilation Right-sided congestive heart failure Suspected sleep apnea Tobacco dependence Ventricular septal defect (VSD) Home Medications morphine (PF) 6.5 mg SQ DAILY 01/20/16 [History Last Taken Unknown] fluticasone propionate 50 mcg/actuation nasal spray,suspension 1 spray INTRANASAL QDAY 11/24/17 [History Last Taken 12/04/17] furosemide 40 mg tablet 40 mg PO QDAY #90 tab 05/12/18 [Rx Last Taken Unknown] aspirin 81 mg tablet,delayed release 81 mg PO DAILY 05/22/19 [History Last Taken Unknown] albuterol sulfate 90 mcg/actuation aerosol inhaler 2 puff INHALATION Q4H PRN #18 g 06/12/20 [Rx Last Taken Unknown] ambrisentan 10 mg tablet 10 mg PO QDAY #90 tab 06/12/20 [Rx Last Taken Unknown] tadalafil (pulm. hypertension) 20 mg tablet (pulmonary hypertension) 20 mg PO BID #60 tab 06/12/20 [Rx Last Taken Unknown] albuterol sulfate 2.5 mg INHALATION Q4H PRN #180 ml 07/21/20 [Rx Last Taken Unknown] Oxygen, Home 1 - 5 lpm INHALATION .COMPLEX 10/09/20 [History Last Taken Unknown] docusate sodium 100 mg capsule 1 ea PO DAILY 10/09/20 [History Last Taken Unknown] fluticasone fur. 200 mcg-umeclid 62.5 mcg-vilant 25 mcg inhalat.powder 1 inh INHALATION DAILY #60 each 12/11/20 [Rx Last Taken Unknown] Allergy/AdvReac Type Severity Reaction Status Date / Time warfarin [From Coumadin] AdvReac Severe Other - Verified 01/30/21 07:05 parodoxical low INR,myalgia and weakness Family History Brother Heart disease Mother Malignant tumor of pancreas Father Malignant neoplasm of lung Surgical History Below knee amputation status History of right and left heart catheterization (01/27/16) History of right heart catheterization (04/16/19) morphine pump placement no surgical history Social History Smoking Status: Former smoker quit date: 02/26/19 second hand exposure: No alcohol intake: never substance use type: does not use ROS ROS ED Constitutional Constitutional ED: Denies chills or fever(s) Eyes Eyes: Denies blurry vision or change in vision ENT ENT ED: Denies ear pain or sore throat Cardiovascular Cardiovascular: Denies chest pain or palpitations Respiratory/Chest Respiratory/Chest: Denies cough, dyspnea or dyspnea on exertion Gastrointestinal Gastrointestinal: Reports abdominal pain, constipation and nausea Genitourinary Genitourinary ED: Denies dysuria or urinary frequency Musculoskeletal Musculoskeletal: Denies arthralgias or myalgias Integumentary Denies rash Neurologic Neurologic: Denies headache(s) or paresthesias Psychiatric Psychiatric: Denies anxiety or depression Endocrine Endocrinology: Denies polydipsia or polyuria Allergic/Immunologic Allergic/Immunologic ED: Denies urticaria EXAM Physical Exam Const Vital Signs: 01/30/21 07:01 01/30/21 09:06 01/30/21 11:54 Temperature 98.0 F Temperature Source Oral Pulse Rate 85 80 68 Respiratory Rate 14 14 14 Blood Pressure 137/79 H 144/74 H 123/74 H Blood Pressure Mean 98 97 90 Pulse Ox 87 95 94 Oxygen Delivery Method Room Air Nasal Cannula Room Air Oxygen Flow Rate (L/min) 2 Positive well nourished and well developed General Appearance ED: well developed HEENT Reports normocephalic, head/scalp atraumatic and moist mucous membranes Eyes PERRL and EOMs intact bilaterally Neck no lymphadenopathy and supple General: Negative for tenderness Chest Wall inspection of chest normal Resp normal respiratory effort and clear to auscultation bilaterally Cardio regular rate, regular rhythm and no murmurs GI non-tender GI Narrative: Large left inguinal hernia tender to palpation Inspection: abdominal distention Palpation: soft; Negative for tender, guarding or rebound tenderness present Back/Spine no CVA tenderness Cervical Spine: Negative for cervical spine tenderness Thoracic Spine / Upper Back: Negative for thoracic spinal tenderness Extremity normal to inspection General Extremety ED: Negative for tenderness Neuro oriented x3 and CN's II-XII intact bilaterally Neuro Narrative: No focal deficits appreciated. Sensorium / Orientation: alert Psych mental status grossly normal Skin no rashes or lesions noted, no wounds and skin turgor normal MDM MDM MDM Narrative Medical decision making narrative: The patient presents with abdominal pain, nausea, and diminished stool output. He has a very large, tender left inguinal hernia. IV was established. He was given analgesics and antiemetics. I was judicious with fluids as he does have history of pulmonary hypertension and CHF. His pain was improved but he was still markedly tender. Lactic acid was normal. Patient underwent CT imaging. This does demonstrate a rather significant left inguinal hernia with signs of strangulation and upstream bowel obstruction. I did discuss this with Dr. Valladares who thought based on the patient's multiple comorbidities that he would best be served at a tertiary facility. The patient requested transfer to [facility]. Case was discussed with surgery who accepted. The patient will be transferred. NG is placed. Patient is covered with broad-spectrum antibiotics. We are still awaiting a bed at 1255 from the [facility]. We have made multiple calls and their discharge dependent. I did discuss this with the patient and offered him transfer to another facility. He states that he still wants to wait. I did application counselor him that with strangulation there was concern for ischemic gut it would make his outcome worse. He states that he still wants to wait for the [facility] as this is where he gets his care. Impression One. Small bowel obstruction Two. Incarcerated/strangulated inguinal hernia Lab Data Attestation: I reviewed the patient's lab results. Labs: Laboratory Results - last 24 hr 01/30/21 01/30/21 01/30/21 07:20 07:20 07:20 WBC 8.0 RBC 5.09 Hgb 15.1 Hct 44.0 MCV 86.4 MCH 29.7 MCHC 34.3 RDW Std Deviation 40.5 RDW Coeff of Reece 13.0 Plt Count 146 L MPV 9.4 Immature Gran % (Auto) 0.400 Neut % (Auto) 81.3 H Lymph % (Auto) 12.0 L Winn % (Auto) 5.3 Eos % (Auto) 0.6 Baso % (Auto) 0.4 Absolute Neuts (auto) 6.5 Absolute Lymphs (auto) 0.96 Nucleated RBC % 0 Sodium 136 Potassium 3.7 Chloride 101 Carbon Dioxide 29.0 Anion Gap 6 BUN 17 Creatinine 0.64 L Estim Creat Clear Calc 130.73 Est GFR (MDRD) Af Amer 165 Est GFR (MDRD) Non-Af 136 BUN/Creatinine Ratio 26.6 H Glucose 130 H Lactic Acid 0.9 Calcium 9.1 Total Bilirubin 2.00 H AST 13 L ALT 15 L Alkaline Phosphatase 63 Total Protein 7.6 Albumin 3.9 Globulin 3.7 Albumin/Globulin Ratio 1.1 Radiography Chest X-Ray - ED: 1 View, Read by ED Physician, Read by Radiologist, Heart, Lungs, Mediastinum and Bony Structures Diagnostic Testing: Radiology Impression Abdomen/Pelvis CT 01/30/21 07:06 IMPRESSION: Large left inguinal/scrotal hernia containing bowel loops with edematous changes within the peritoneal fat suggestive of strangulation. There is evidence of a left hydrocele with thickening of the left scrotal skin. 2. Hypodense lesions are seen within the liver as described. These may represent hemangiomas although correlation with ultrasound is recommended if clinically indicated. Small pericardial effusion. Small gallstone. Electronically Signed: Silvestre Alvarado MD at 8:27 EDT , Service support , Chest X-Ray 01/30/21 08:00 IMPRESSION: Hyperinflation. Mild increased markings at the lung bases suggestive of linear atelectasis and/or scarring. Enlargement of the pulmonary arteries bilaterally worse on the left side suggestive of a pulmonary hypertension. Electronically Signed: Silvestre Alvarado MD at 8:28 EDT , Service support , KUB X-Ray 01/30/21 09:05 IMPRESSION: The tip of the nasogastric tube is in the body of the stomach. Electronically Signed: Silvestre Alvarado MD at 9:26 EDT , Service support , Critical Care Time Critical Care Time: Yes Critical care time (excluding procedures): 30-74 minutes (35 minutes), Including time spent:, Discussing w/Patient &/or Family/Lapidary Apprentice, Discussing w/Consultants and Arranging Admission or Transfer Discharge Plan Triage Chief Complaint: Abd Pain ED Provider: Cortez Pham Dx/Rx/DC Orders Prescriptions: No Action fluticasone propionate [Flonase Allergy Relief] 50 mcg/actuation spray,suspension 1 spray INTRANASAL QDAY RF: 0 furosemide 40 mg tablet 40 mg PO QDAY Qty: 90 RF: 3 aspirin [Adult Aspirin Regimen] 81 mg tablet,delayed release (DR/EC) 81 mg PO DAILY RF: 0 Ventolin HFA 90 mcg/actuation HFA aerosol inhaler 2 puff INHALATION Q4H PRN (Reason: shortness of breath or wheezing) Qty: 18 RF: 6 Letairis 10 mg tablet 10 mg PO QDAY Qty: 90 RF: 3 tadalafil (pulm. hypertension) 20 mg tablet 20 mg PO BID Qty: 60 RF: 6 docusate sodium [Colace] 100 mg capsule 1 ea PO DAILY RF: 0 Trelegy Ellipta 200-62.5-25 mcg blister with device 1 inh INHALATION DAILY Qty: 60 RF: 6 morphine (PF) 5 MG/ML pt controlled analgesia syring 6.5 mg SQ DAILY RF: 0 Oxygen, Home 1 - 5 lpm INHALATION .COMPLEX RF: 0 albuterol sulfate 2.5 mg /3 mL (0.083 %) solution for nebulization 2.5 mg INHALATION Q4H PRN (Reason: Dyspnea/Wheezing/Sob) Qty: 180 RF: 3 Primary Care Provider: [facility],Corina [place]
[2021-01-30] MEDS: Morphine 4 MG/ML Syringe IV ×2 (07:36→08:32)
[2021-01-30] MEDS: Ondansetron 4 MG/2 ML Vial IV (07:36)
[2021-01-30] MEDS: 0.9% Normal Saline 1,000 ML 125 ML IV ×2 (07:36→15:55)
[2021-01-30 07:42] LABS: Absolute Lymphocyte Count 0.96 X10^3/uL (0.83-4.51); Absolute Neutrophil Count 6.5 X10^3/uL (2.0-7.7); Basophil# 0.03 X10^3/uL; Basophil% 0.4 % (0-1); Eosinophil# 0.05 X10^3/uL; Eosinophils% 0.6 % (0-5); Hemoglobin 15.1 g/dL (13.0-16.5); Lymphocyte # 0.96 X10^3/ul (0.83-4.51); Mean Corp Hgb Conc 34.3 g/dL (32-36); Mean Corpuscular Hgb 29.7 pg (27.0-32.0); Mean Corpuscular Volume 86.4 fL (80-94); Mean Platelet Vol. 9.4 fl (6.2-12.0); Monocyte# 0.42 X10^3/uL; Monocyte% 5.3 % (0-10); NRBC Flagged by Analyzer 0 % (0-5); Neutrophil # 6.48 X10^3/uL (2.7-7.7); Neutrophil % 81.3 % (47-70); Platelet Count 146 K/mm3 (150-450); RBC Distribution Width SD 40.5 fl (35.1-43.9); Red Blood Count 5.09 M/mm3 (4.6-6.2)
[2021-01-30 07:51] LABS: ALB/GLOB Ratio 1.1 RATIO (0.9-2.4); AST(SGOT) 13 U/L (15-37); Alanine Aminotransfer ALT/SGPT 15 U/L (16-61); Albumin, Serum 3.9 g/dL (3.2-5.0); Alkaline Phosphatase 63 U/L (45-117); Anion Gap 6 (5-15); BUN 17 mg/dL (7-18); BUN/Creat Ratio 26.6 RATIO (10-20); Calcium,Total 9.1 mg/dL (8.5-10.1); Chloride 101 mmol/L (98-107); Creatinine, Serum 0.64 mg/dL (0.70-1.30); EST Glomerular Filtration Rate 136 mL/min (>60); Est Glom Filt Rate - Afr Amer 165 mL/min (>60); Estimated Creatinine Clearance 130.73 ml/min; Globulin 3.7 g/dL (2.2-4.2); Glucose 130 mg/dL (74-106); Potassium 3.7 mmol/L (3.5-5.1); Protein, Total 7.6 g/dL (6.4-8.2); Sodium Level 136 mmol/L (136-145)
[2021-01-30 08:00] LABS: Lactic Acid 0.9 mmol/L (0.4-1.9)
--- NOTE | 2021-01-30 08:00 | RAD_ITS ---
STUDY: X-RAY CHEST REASON FOR EXAM: Male, 60 years old. Sob TECHNIQUE: Single AP portable view of the chest. COMPARISON: Comparison is made with prior study dated 01/20/2016. FINDINGS: Increased markings at the lung bases slightly more prominent on the right side suggestive of a basilar atelectasis and/or scarring. Hyperinflation. There is no demonstrated pleural abnormality. There is moderate cardiac enlargement. Normal mediastinum and kang. There is prominence of the pulmonary hilar arteries without peripheral pulmonary vascular congestion, suggesting pulmonary hypertension. There is atherosclerotic tortuosity of the aortic arch and descending thoracic aorta. Normal visualized thoracic spine. Normal visualized ribs, clavicles, and shoulders. There is no demonstrated abnormality of the visualized soft tissue structures of the upper abdomen. RAD/Chest 1 View (Portable) IMPRESSION: Hyperinflation. Mild increased markings at the lung bases suggestive of linear atelectasis and/or scarring. Enlargement of the pulmonary arteries bilaterally worse on the left side suggestive of a pulmonary hypertension. Electronically Signed: Silvestre Alvarado MD at 8:28 EDT , Service support ,
[2021-01-30] MEDS: HYDROmorphone 1 MG/ML Syringe IV ×3 (08:51→14:49)
--- NOTE | 2021-01-30 09:05 | RAD_ITS ---
STUDY: X-RAY - ABDOMEN/PELVIS REASON FOR EXAM: Male, 60 years old. ng -- KUB with both diaphragms for NG/OG Verification TECHNIQUE: Single AP view of the abdomen / pelvis. COMPARISON: None. FINDINGS: The tip of the nasogastric tube is in the body of the stomach. Increased markings at the lung bases. Small bowel dilatation. RAD/Abdomen Single View (Portable) IMPRESSION: The tip of the nasogastric tube is in the body of the stomach. Electronically Signed: Silvestre Alvarado MD at 9:26 EDT , Service support ,
[2021-01-30 09:06] VITALS: BP 144/74; PULSE 80; RESP 14; O2SAT 95
[2021-01-30 11:54] VITALS: BP 123/74; PULSE 68; RESP 14; O2SAT 94
[2021-01-30 13:23] VITALS: BP 120/71; PULSE 88; RESP 16; O2SAT 94
[2021-01-30 16:00] VITALS: BP 120/60; PULSE 99; RESP 18; O2SAT 71; O2SAT 88
--- NOTE | 2021-01-30 16:10 | RAD_ITS ---
STUDY: X-RAY - ABDOMEN/PELVIS REASON FOR EXAM: Male, 60 years old. ng placement TECHNIQUE: 1 view COMPARISON: Prior abdomen and pelvic CT exam of 01/30/2021 FINDINGS: Bibasilar atelectatic changes, right greater than left. Enteric tube terminates in the gastric lumen 12 cm below the diaphragm. Multiple loops of dilated small bowel in the upper abdomen consistent with small bowel obstruction. Negative for gross organomegaly. Normal soft tissue structures. There are diffuse degenerative changes of the visualized lumbar spine. RAD/Abdomen Single View IMPRESSION: Enteric tube terminates in the gastric lumen 12 cm below the diaphragm. Bibasilar atelectasis, right greater than left. Bowel gas pattern consistent with small bowel obstruction. Electronically Signed: Ruma Ace MD at 16:38 EDT , Service support ,
[2021-01-30 17:00] VITALS: BP 120/60
== END 2021-01-30 17:23 | disposition home or self-care (01) ==
PROVIDERS: Emergency Provider Emergency Medicine
DX: K40.30 Unilateral inguinal hernia, with obstruction, without gangrene, not specified as recurrent (principal); I11.0 Hypertensive heart disease with heart failure; J44.9 Chronic obstructive pulmonary disease, unspecified; I27.20 Pulmonary hypertension, unspecified; I50.9 Heart failure, unspecified; E66.9 Obesity, unspecified; Z79.51 Long term (current) use of inhaled steroids; Z79.899 Other long term (current) drug therapy; Z99.81 Dependence on supplemental oxygen; Z87.891 Personal history of nicotine dependence
CPT/HCPCS: 71045; 74018; 74177; 80053; 83605; 85025; 87426; 93005; 96361; 96365; 96375; 96376; 99285; J7030; A4216; J2405

== ENCOUNTER → 2021-02-06 08:48 | Outpatient (CLI) | payer MEDICARE, MEDICAID, SELFPAY ==
[2021-01-30 07:01] VITALS: BMI 31.6
--- NOTE | 2021-02-06 08:52 | US_ITS ---
STUDY: ABDOMINAL ULTRASOUND - RIGHT UPPER QUADRANT REASON FOR VISIT: Male, 60 years old LIVER NODULE seen on recent CT scan. TECHNIQUE: Ultrasound evaluation of the right upper quadrant was performed with real-time and static alexander-scale imaging. TECHNICAL QUALITY: Adequate. COMPARISON: Comparison is made with prior CT scan of the abdomen and pelvis dated 01/30/2021. FINDINGS: Liver: The liver is enlarged and measures 20 cm. There is increased echogenicity consistent with fatty infiltration. The bile ducts are within normal limits. There is hepatic color flow. The direction of portal flow is hepatopetal. There is a 3.3 cm x 2.65 x 2.2 cm echogenic nodule in the posterior superior aspect of the right lobe of the liver abutting the diaphragm. This most likely represents hemangioma. A similar appearing echogenic nodule measuring 1.3 cm x 1 cm x 1.2 cm is also seen in the superior aspect of the right lobe. This also evidence of a 2.3 cm x 1.9 cm x 2.1 solid echogenic nodule in the left lobe. These nodules are suggestive of hemangioma. Gallbladder: Normal distended gallbladder. The gallbladder wall measures 2.2 mm. There is a negative sonographic Bellamy''s sign. There is no pericholecystic fluid. There is a solitary echogenic gallstone within the gallbladder. Common Bile Duct (C.B.D.): The common bile duct measures 3.7 mm. Pancreas: Normal size of the head, body and tail of the pancreas. There is normal echogenicity of the pancreas. There is no demonstrated pancreatic mass or cyst. Right Kidney: Normal size of the right kidney. The right kidney measures 11 cm x 5.2 cm x 4.5 cm. Normal renal cortex. The right cortex measures 1.2 cm. There is no demonstrated renal mass or cyst. There is no right hydronephrosis. US/Abdomen Limited IMPRESSION: Hepatomegaly and diffuse fatty infiltration of the liver. There are 3 echogenic nodules seen within the right and left lobes of the liver in keeping with a hemangioma. Solitary gallstone. Electronically Signed: Silvestre Alvarado MD at 10:37 EDT , Service support ,
== END ==
PROVIDERS: PCP Nurse Practitioner Adult Health; Referring Provider Nurse Practitioner Adult Health; Visit Provider Nurse Practitioner Adult Health
DX: K76.9 Liver disease, unspecified (principal)
CPT/HCPCS: 76705

== ENCOUNTER 2021-02-10 23:15 | Observation (INO) | payer MEDICARE, MEDICAID, SELFPAY ==
[2021-02-10 23:16] VITALS: BP 122/59; PULSE 57; RESP 16; TEMP 35.5; O2SAT 92; BMI 33.0
--- NOTE | 2021-02-10 23:51 | CT_ITS ---
STUDY: CT ABDOMEN AND PELVIS WITH CONTRAST REASON FOR EXAM: Male, 60 years old. Hernia reeval RADIATION DOSAGE (If Supplied By Facility): CTDIvol = ( 16.45 ) mGy, DLP = ( 1553.49 ) mGycm TECHNIQUE: Transaxial images were obtained from the dome of the diaphragm to the symphysis pubis without oral contrast. IV 100mL Isovue-370 was administered. Sagittal and coronal images were reconstructed. Individualized dose optimization techniques were used for this CT. COMPARISON: None. FINDINGS: The visualized lung bases are unremarkable. The visualized portions of the heart are within normal limits. Right superior hepatic lobe peripheral parenchymal lesion consistent with hemangiomas noted. Normal gallbladder and extrahepatic biliary system. Normal spleen. Normal pancreas. Normal bilateral adrenal glands. Normal right kidney. Normal left kidney. Normal visualized stomach. Normal small intestine. Normal colon. There is non-visualization of the appendix. There is diffuse atherosclerotic calcification of the abdominal aorta with elongation and tortuosity, but without a demonstrated aneurysm. Normal inferior vena cava. Normal retroperitoneum. Normal urinary bladder. There is a large left inguinal bowel-containing hernia extending to the left hemiscrotum containing mesenteric fat and multiple small bowel loops of bowel and likely:. There is overall similar appearance of the hernia compared to January 30 exam with large portion of fluid layering inferiorly. There is persistent area of mesenteric edema within the scrotal hernia. Diffuse degenerative changes of the lumbar spine with noted osseous hemangioma of L1 present. CT/Abdomen/Pelvis W IV Cont ONLY IMPRESSION: Similar appearance compared to February 16 of the left hemiscrotum large hernia containing mesenteric fat, vasculature, small bowel and large bowel with mild increased mesenteric edema. Large hemiscrotum fluid layering is present. No evidence of definitive underlying bowel obstruction. Underlying mild areas of strangulation cannot be completely excluded, with areas of mesenteric edema and scattered lymph nodes. Recommend general surgery consultation for further assessment management. Electronically Signed: Eric Gautam DO at 1:05 EDT , Service support ,
[2021-02-10 23:57] LABS: Absolute Lymphocyte Count 2.63 X10^3/uL (0.83-4.51); Absolute Neutrophil Count 4.6 X10^3/uL (2.0-7.7); Basophil# 0.04 X10^3/uL; Basophil% 0.5 % (0-1); Eosinophil# 0.29 X10^3/uL; Eosinophils% 3.5 % (0-5); Hematocrit 42.7 % (40-54); Hemoglobin 14.4 g/dL (13.0-16.5); Lymphocyte # 2.63 X10^3/ul (0.83-4.51); Lymphocyte % 31.6 % (19-41); Mean Corp Hgb Conc 33.7 g/dL (32-36); Mean Corpuscular Hgb 29.8 pg (27.0-32.0); Mean Corpuscular Volume 88.2 fL (80-94); Mean Platelet Vol. 9.5 fl (6.2-12.0); Monocyte# 0.71 X10^3/uL; Monocyte% 8.5 % (0-10); NRBC Flagged by Analyzer 0 % (0-5); Neutrophil # 4.63 X10^3/uL (2.7-7.7); Neutrophil % 55.7 % (47-70); Platelet Count 203 K/mm3 (150-450); RBC Distribution Width CV 13.3 % (11.6-14.6); RBC Distribution Width SD 42.8 fl (35.1-43.9); Red Blood Count 4.84 M/mm3 (4.6-6.2); White Blood Count 8.3 K/mm3 (4.4-11.0)
[2021-02-10] MEDS: HYDROmorphone 1 MG/ML Syringe IV (23:59)
[2021-02-11] VITALS (15 sets, daily range): BP systolic 104–141; BP diastolic 52–84; PULSE 64–90; RESP 14–20; TEMP 36.7–37.6; O2SAT 80–100; BMI 32.3
[2021-02-11 00:12] LABS: ALB/GLOB Ratio 1.1 RATIO (0.9-2.4); AST(SGOT) 23 U/L (15-37); Alanine Aminotransfer ALT/SGPT 16 U/L (16-61); Albumin, Serum 3.8 g/dL (3.2-5.0); Alkaline Phosphatase 55 U/L (45-117); Anion Gap 7 (5-15); BUN 20 mg/dL (7-18); BUN/Creat Ratio 22.9 RATIO (10-20); Calcium,Total 8.6 mg/dL (8.5-10.1); Chloride 105 mmol/L (98-107); Creatinine, Serum 0.87 mg/dL (0.70-1.30); EST Glomerular Filtration Rate 95 mL/min (>60); Est Glom Filt Rate - Afr Amer 115 mL/min (>60); Estimated Creatinine Clearance 96.17 ml/min; Globulin 3.4 g/dL (2.2-4.2); Glucose 157 mg/dL (74-106); Lactic Acid 1.3 mmol/L (0.4-1.9); Potassium 4.2 mmol/L (3.5-5.1); Protein, Total 7.2 g/dL (6.4-8.2); Sodium Level 139 mmol/L (136-145)
--- NOTE | 2021-02-11 00:43 | EDS_ITS ---
HPI <Dr. Ashok Coffman DO - Last Filed: 02/19/21 09:01> History of Present Illness Chief Complaint: Constipation Informant: patient Narrative Narrative: Patient is a 60-year-old male who presents to the emergency department for abdominal pain. Patient was seen in the emergency department earlier this month for incarcerated hernia. He was supposed to be transferred to the [facility] but patient left AGAINST MEDICAL ADVICE. Patient states his pain was relatively well controlled but it reflared up tonight. He describes his pain as severe. No known aggravating or relieving factors. Patient states he has not had a bowel movement in the past week. He has not been vomiting. He denies fevers or chills. [facility] <Dr. Ashok Coffman DO - Last Filed: 02/19/21 09:01> [facility] Medical History (Updated 02/12/21 @ 13:55 by Hali Guadalupe) Acute CHF (congestive heart failure) Allergic rhinitis Cardiomegaly Chronic hypoxemic respiratory failure Chronic pain disorder Chronic sinusitis Congestive heart failure (CHF) COPD (chronic obstructive pulmonary disease) PAYTON (dyspnea on exertion) Former smoker Inguinal hernia Localized edema Noncompliance Nonrheumatic tricuspid valve regurgitation Obesity JERICA (obstructive sleep apnea) Pulmonary hypertension Pulmonary regurgitation Right ventricular dilation Right-sided congestive heart failure Sleep apnea Suspected sleep apnea Tobacco dependence Ventricular septal defect (VSD) Home Medications morphine (PF) 6.5 mg SQ DAILY 01/20/16 [History Last Taken Unknown] aspirin 81 mg tablet,delayed release 81 mg PO DAILY 05/22/19 [History Last Taken 02/10/21] albuterol sulfate 90 mcg/actuation aerosol inhaler 2 puff INHALATION Q4H PRN #18 g 06/12/20 [Rx Last Taken 02/10/21] ambrisentan 10 mg tablet 10 mg PO QDAY #90 tab 06/12/20 [Rx Last Taken 02/10/21] tadalafil (pulm. hypertension) 20 mg tablet (pulmonary hypertension) 20 mg PO BI D #60 tab 06/12/20 [Rx Last Taken 02/10/21] albuterol sulfate 2.5 mg INHALATION Q4H PRN #180 ml 07/21/20 [Rx Last Taken 02/11/21] [id number] [Trelegy Ellipta] 1 inh INHALATION DAILY 02/11/21 [History Last Taken 02/09/21] Allergy/AdvReac Type Severity Reaction Status Date / Time warfarin [From Coumadin] AdvReac Severe Other - Verified 02/10/21 23:25 parodoxical low INR,myalgia and weakness Family History Brother Heart disease Mother Malignant tumor of pancreas Father Malignant neoplasm of lung Surgical History (Updated 02/12/21 @ 13:50 by Hali Guadalupe) Below knee amputation status History of left below knee amputation History of right and left heart catheterization (01/27/16) History of right heart catheterization (04/16/19) morphine pump placement Social History Smoking Status: Former smoker quit date: 02/26/19 second hand exposure: No alcohol intake: never substance use type: does not use ROS <Dr. Ashok Coffman DO - Last Filed: 02/19/21 09:01> ROS ED Constitutional Constitutional ED: Denies chills or fever(s) Eyes Eyes: Denies change in vision ENT ENT ED: Denies epistaxis or rhinorrhea Cardiovascular Cardiovascular: Denies chest pain or palpitations Respiratory/Chest Respiratory/Chest: Denies cough, dyspnea or dyspnea on exertion Gastrointestinal Gastrointestinal: Reports abdominal pain, constipation and nausea; Denies diarrhea or vomiting Genitourinary Genitourinary ED: Denies dysuria, hematuria or urinary frequency Musculoskeletal Musculoskeletal: Denies back pain or neck pain Integumentary Denies rash Neurologic Neurologic: Denies dizziness, headache(s) or weakness EXAM <Dr. Ashok Coffman DO - Last Filed: 02/19/21 09:01> Physical Exam Narrative Exam Narrative: He does appear in moderate distress due to pain. Const Vital Signs: 02/10/21 23:16 02/11/21 00:03 02/11/21 01:52 Temperature 95.9 F L Temperature Source Temporal Pulse Rate 57 L 64 Respiratory Rate 16 14 16 Blood Pressure 122/59 H 134/84 H Blood Pressure Mean 80 100 Pulse Ox 92 95 Oxygen Delivery Method Room Air Oxygen Flow Rate (L/min) 02/11/21 02:12 02/11/21 03:25 02/11/21 05:54 Temperature Temperature Source Pulse Rate 78 Respiratory Rate 16 14 18 Blood Pressure 104/53 L Blood Pressure Mean 70 Pulse Ox 80 Oxygen Delivery Method Room Air Oxygen Flow Rate (L/min) 02/11/21 06:45 02/11/21 08:57 02/11/21 09:53 Temperature Temperature Source Pulse Rate 90 Respiratory Rate 16 Blood Pressure 123/66 H Blood Pressure Mean 85 Pulse Ox 95 91 90 Oxygen Delivery Method Non-Rebreather Nasal Cannula Nasal Cannula Oxygen Flow Rate (L/min) 15 6 02/11/21 10:39 02/11/21 11:18 Temperature Temperature Source Pulse Rate 89 Respiratory Rate 14 Blood Pressure 119/66 Blood Pressure Mean 83 Pulse Ox 90 93 Oxygen Delivery Method Nasal Cannula Nasal Cannula Oxygen Flow Rate (L/min) 8 8 Positive well nourished and well developed General Appearance ED: well developed HEENT Reports normocephalic and head/scalp atraumatic Eyes PERRL and EOMs intact bilaterally Neck supple General: Negative for tenderness Chest Wall inspection of chest normal Resp normal respiratory effort and clear to auscultation bilaterally Auscultation: Negative for rales, rhonchi or wheezes Cardio regular rate, regular rhythm and no murmurs GI GI Narrative: Diffuse tenderness. There is a massive hernia extending from the lower abdomen. Patient has voluntary guarding. Extremity General Extremety ED: Negative for edema or tenderness General Extremity: Negative for edema Neuro oriented x3, CN's II-XII intact bilaterally and no sensory deficits noted Sensorium / Orientation: alert Motor Exam: strength 5/5 throughout Psych mental status grossly normal Skin no rashes or lesions noted <Dr. Angelito Durham MD - Last Filed: 02/11/21 14:20> Physical Exam Const Vital Signs: 02/10/21 23:16 02/11/21 00:03 02/11/21 01:52 Temperature 95.9 F L Temperature Source Temporal Pulse Rate 57 L 64 Respiratory Rate 16 14 16 Blood Pressure 122/59 H 134/84 H Blood Pressure Mean 80 100 Pulse Ox 92 95 Oxygen Delivery Method Room Air Oxygen Flow Rate (L/min) 02/11/21 02:12 02/11/21 03:25 02/11/21 05:54 Temperature Temperature Source Pulse Rate 78 Respiratory Rate 16 14 18 Blood Pressure 104/53 L Blood Pressure Mean 70 Pulse Ox 80 Oxygen Delivery Method Room Air Oxygen Flow Rate (L/min) 02/11/21 06:45 02/11/21 08:57 02/11/21 09:53 Temperature Temperature Source Pulse Rate 90 Respiratory Rate 16 Blood Pressure 123/66 H Blood Pressure Mean 85 Pulse Ox 95 91 90 Oxygen Delivery Method Non-Rebreather Nasal Cannula Nasal Cannula Oxygen Flow Rate (L/min) 15 6 02/11/21 10:39 02/11/21 11:18 Temperature Temperature Source Pulse Rate 89 Respiratory Rate 14 Blood Pressure 119/66 Blood Pressure Mean 83 Pulse Ox 90 93 Oxygen Delivery Method Nasal Cannula Nasal Cannula Oxygen Flow Rate (L/min) 8 8 [facility] <Dr. Ashok Coffman, DO - Last Filed: 02/19/21 09:01> [facility] Narrative Medical decision making narrative: Patient presents to the ED for massive hernia. He has been having significant pain in this. He states he has not had a bowel movement over the past week. Upon arrival to the emergency department vital signs within normal limits. Patient's lab work was unremarkable for significant acute abnormality. He does not have a high white blood cell count. Lactic acid within normal limits. No significant electrolyte abnormality. CT scan of the abdomen was obtained and did not show any obvious obstruction. This was similar in appearance to his previous CT scan. He has required multiple doses of pain medication throughout ED stay. Given the fact he is having such significant pain surgery was contacted the [facility] and they were willing to accept him at their hospital for further evaluation and management. He otherwise has been stable throughout ED stay. Lab Data Labs: Laboratory Results - last 24 hr 02/10/21 02/10/21 02/10/21 23:25 23:25 23:25 WBC 8.3 RBC 4.84 Hgb 14.4 Hct 42.7 MCV 88.2 MCH 29.8 MCHC 33.7 RDW Std Deviation 42.8 RDW Coeff of Reece 13.3 Plt Count 203 MPV 9.5 Immature Gran % (Auto) 0.200 Neut % (Auto) 55.7 Lymph % (Auto) 31.6 [place] % (Auto) 8.5 Eos % (Auto) 3.5 Baso % (Auto) 0.5 Absolute Neuts (auto) 4.6 Absolute Lymphs (auto) 2.63 Nucleated RBC % 0 Sodium 139 Potassium 4.2 Chloride 105 Carbon Dioxide 27.0 Anion Gap 7 BUN 20 H Creatinine 0.87 Estim Creat Clear Calc 96.17 Est GFR (MDRD) Af Amer 115 Est GFR (MDRD) Non-Af 95 BUN/Creatinine Ratio 22.9 H Glucose 157 H Lactic Acid 1.3 Calcium 8.6 Total Bilirubin 0.80 AST 23 ALT 16 Alkaline Phosphatase 55 Total Protein 7.2 Albumin 3.8 Globulin 3.4 Albumin/Globulin Ratio 1.1 Radiography Diagnostic Testing: Radiology Impression Abdomen/Pelvis CT 02/10/21 23:51 IMPRESSION: Similar appearance compared to February 16 of the left hemiscrotum large hernia containing mesenteric fat, vasculature, small bowel and large bowel with mild increased mesenteric edema. Large hemiscrotum fluid layering is present. No evidence of definitive underlying bowel obstruction. Underlying mild areas of strangulation cannot be completely excluded, with areas of mesenteric edema and scattered lymph nodes. Recommend general surgery consultation for further assessment management. Electronically Signed: Eric Gautam DO at 1:05 EDT , Service support , <Dr. Angelito Durham MD - Last Filed: 02/11/21 14:20> [facility] MDM Narrative Medical decision making narrative: Patient is awaiting to go to the OR at the [facility]. He is now been in the emergency department 15 hours about. I spoke to our hospitalist they are willing to admit him here for pain control while he awaits his bed and surgery at the [facility]. Lab Data Labs: Laboratory Results - last 24 hr 02/10/21 02/10/21 02/10/21 23:25 23:25 23:25 WBC 8.3 RBC 4.84 Hgb 14.4 Hct 42.7 MCV 88.2 MCH 29.8 MCHC 33.7 RDW Std Deviation 42.8 RDW Coeff of Reece 13.3 Plt Count 203 MPV 9.5 Immature Gran % (Auto) 0.200 Neut % (Auto) 55.7 Lymph % (Auto) 31.6 Frederick % (Auto) 8.5 Eos % (Auto) 3.5 Baso % (Auto) 0.5 Absolute Neuts (auto) 4.6 Absolute Lymphs (auto) 2.63 Nucleated RBC % 0 Sodium 139 Potassium 4.2 Chloride 105 Carbon Dioxide 27.0 Anion Gap 7 BUN 20 H Creatinine 0.87 Estim Creat Clear Calc 96.17 Est GFR (MDRD) Af Amer 115 Est GFR (MDRD) Non-Af 95 BUN/Creatinine Ratio 22.9 H Glucose 157 H Lactic Acid 1.3 Calcium 8.6 Total Bilirubin 0.80 AST 23 ALT 16 Alkaline Phosphatase 55 Total Protein 7.2 Albumin 3.8 Globulin 3.4 Albumin/Globulin Ratio 1.1 Radiography Diagnostic Testing: Radiology Impression Abdomen/Pelvis CT 02/10/21 23:51 IMPRESSION: Similar appearance compared to February 16 of the left hemiscrotum large hernia containing mesenteric fat, vasculature, small bowel and large bowel with mild increased mesenteric edema. Large hemiscrotum fluid layering is present. No evidence of definitive underlying bowel obstruction. Underlying mild areas of strangulation cannot be completely excluded, with areas of mesenteric edema and scattered lymph nodes. Recommend general surgery consultation for further assessment management. Electronically Signed: Eric Gautam DO at 1:05 EDT , Service support , Discharge Plan Triage Chief Complaint: Constipation ED Provider: Ashok Coffman Dx/Rx/DC Orders Clinical Impression: Inguinal hernia, Intractable abdominal pain Primary Care Provider: Shameka Hooper Disposition Disposition: Acute Care Hospital Discharge Location: [facility] Discharge Date/Time: 02/11/21 15:02
[2021-02-11] MEDS: HYDROmorphone 1 MG/ML Syringe IV ×6 (01:30→14:54)
--- NOTE | 2021-02-11 08:01 | NURSING ---
CALLED [facility] TRANSFER LINE FOR BED STATUS. NOTHING YET.
--- NOTE | 2021-02-11 14:12 | ED.RN ---
CALLED [facility] AT DR MAIER REQUEST. PER TRANSFER LINE VERY HIGH CENSUS AND UNKNOWN IF WILL HAVE A BED OR TOMORROW AT THIS POINT
--- NOTE | 2021-02-11 14:13 | ED.RN ---
DR MAIER AWARE HOSPITALIST PAGED
--- NOTE | 2021-02-11 14:27 | NURSING ---
MED SURG OBS KOTSONIS INCARCERATED HERNIA, PAIN CONTROL, AWAITING OR AT [facility]
--- NOTE | 2021-02-11 14:53 | PCM.HP.STD ---
HPI - General General Date of Admission: 02/11/21 HPI Narrative CORNELIO MILLER, is a 60 M who presents to the hospital with a left inguinal hernia and symptoms of obstruction. He was in the hospital about a week ago and was set to be transferred to the [facility] for surgery however because of their census they were unable to take him right away so he left AMA since he was feeling a little bit better. He says it has been dealing with this hernia for quite a while but he is usually been able to push it back into his abdomen which has failed this time. He is extremely high surgical risk therefore his surgery can be done here however he has been in the ER for 15 hours and is still waiting for a bed at the [facility]. He does have a history of a COPD as well as severe pulmonary hypertension, he says that he was offered a heart transplant for this years ago but he did not want to go through with transplant at that time. He does have a morphine pump in place secondary to chronic pain from when steel fell on his foot necessitating his left BKA. [facility] Medical History (Updated 02/11/21 @ 14:42 by Batsheva Tang) Acute CHF (congestive heart failure) Allergic rhinitis Cardiomegaly Chronic hypoxemic respiratory failure Chronic pain disorder Chronic sinusitis Congestive heart failure (CHF) COPD (chronic obstructive pulmonary disease) PAYTON (dyspnea on exertion) Eisenmenger complex Former smoker History of left below knee amputation Inguinal hernia Localized edema Noncompliance Nonrheumatic tricuspid valve regurgitation Obesity JERICA (obstructive sleep apnea) Pulmonary hypertension Pulmonary regurgitation Right ventricular dilation Right-sided congestive heart failure Sleep apnea Suspected sleep apnea Tobacco dependence Ventricular septal defect (VSD) Home Medications morphine (PF) 6.5 mg SQ DAILY 01/20/16 [History Last Taken Unknown] aspirin 81 mg tablet,delayed release 81 mg PO DAILY 05/22/19 [History Last Taken 02/10/21] albuterol sulfate 90 mcg/actuation aerosol inhaler 2 puff INHALATION Q4H PRN #18 g 06/12/20 [Rx Last Taken 02/10/21] ambrisentan 10 mg tablet 10 mg PO QDAY #90 tab 06/12/20 [Rx Last Taken 02/10/21] tadalafil (pulm. hypertension) 20 mg tablet (pulmonary hypertension) 20 mg PO BID #60 tab 06/12/20 [Rx Last Taken 02/10/21] albuterol sulfate 2.5 mg INHALATION Q4H PRN #180 ml 07/21/20 [Rx Last Taken 02/11/21] [id number]-[id number]-[id number] [Trelegy Ellipta] 1 inh INHALATION DAILY 02/11/21 [History Last Taken Unknown] Allergy/AdvReac Type Severity Reaction Status Date / Time warfarin [From Coumadin] AdvReac Severe Other - Verified 02/10/21 23:25 parodoxical low INR,myalgia and weakness Family History Brother Heart disease Mother Malignant tumor of pancreas Father Malignant neoplasm of lung Surgical History Below knee amputation status History of right and left heart catheterization (01/27/16) History of right heart catheterization (04/16/19) morphine pump placement Social History Smoking Status: Former smoker quit date: 02/26/19 second hand exposure: No alcohol intake: never substance use type: does not use ROS Constitutional Constitutional: Denies chills, fatigue, fever(s) or malaise Eyes Eyes: Denies blurry vision ENT HEENT: Denies headache(s) or nasal discharge Cardiovascular Cardiovascular: Denies chest pain, dyspnea on exertion or syncope Respiratory/Chest Respiratory/Chest: Denies cough, shortness of breath at rest or shortness of breath with exertion Gastrointestinal Gastrointestinal: Reports abdominal pain, constipation, nausea and vomiting; Denies diarrhea Genitourinary Genitourinary: Denies dysuria Neurologic Neurologic: Denies focal weakness, numbness or tremor(s) Psychiatric Psychiatric: Denies anxiety or depression Vital Signs Vital Signs Vital Signs: 02/10/21 23:16 02/11/21 00:03 02/11/21 01:52 Temperature 95.9 F L Temperature Source Temporal Pulse Rate 57 L 64 Respiratory Rate 16 14 16 Blood Pressure 122/59 H 134/84 H Blood Pressure Mean 80 100 Pulse Ox 92 95 Oxygen Delivery Method Room Air Oxygen Flow Rate (L/min) 02/11/21 02:12 02/11/21 03:25 02/11/21 05:54 Temperature Temperature Source Pulse Rate 78 Respiratory Rate 16 14 18 Blood Pressure 104/53 L Blood Pressure Mean 70 Pulse Ox 80 Oxygen Delivery Method Room Air Oxygen Flow Rate (L/min) 02/11/21 06:45 02/11/21 08:57 02/11/21 09:53 Temperature Temperature Source Pulse Rate 90 Respiratory Rate 16 Blood Pressure 123/66 H Blood Pressure Mean 85 Pulse Ox 95 91 90 Oxygen Delivery Method Non-Rebreather Nasal Cannula Nasal Cannula Oxygen Flow Rate (L/min) 15 6 02/11/21 10:39 02/11/21 11:18 02/11/21 14:32 Temperature 98.3 F Temperature Source Temporal Pulse Rate 89 88 Respiratory Rate 14 14 Blood Pressure 119/66 134/66 H Blood Pressure Mean 83 88 Pulse Ox 90 93 95 Oxygen Delivery Method Nasal Cannula Nasal Cannula Nasal Cannula Oxygen Flow Rate (L/min) 8 8 8 Weight Weight: 237 lb 3.478 oz Body Mass Index (BMI) 33.0 Physical Exam Const alert and oriented x3 General Appearance: cooperative HEENT normocephalic Mouth: dry mucous membranes Eyes PERRL, EOMs intact bilaterally and conjunctivae normal Neck supple and no JVD Resp normal respiratory effort, no retractions, no use of accessory muscles and clear to auscultation bilaterally Auscultation: Negative for crackles, rales, rhonchi or wheezes Cardio regular rate, regular rhythm, S1 normal heart sound, S2 normal heart sound and no murmurs GI soft to palpation, non-tender and non-distended; Negative for hepatosplenomegaly Scrotum: inguinal hernia left Extremity no clubbing, cyanosis or edema Left Lower Extremity: lower leg inspection (BKA) Skin no rashes or lesions noted Neuro no focal motor deficits and no sensory deficits noted Psych affect normal Appearance: appropriate Results Lab / Micro Data Result Diagrams: 02/10/21 23:25 02/10/21 23:25 Labs: Laboratory Results - last 24 hr 02/10/21 02/10/21 02/10/21 23:25 23:25 23:25 WBC 8.3 RBC 4.84 Hgb 14.4 Hct 42.7 MCV 88.2 MCH 29.8 MCHC 33.7 RDW Std Deviation 42.8 RDW Coeff of Reece 13.3 Plt Count 203 MPV 9.5 Immature Gran % (Auto) 0.200 Neut % (Auto) 55.7 Lymph % (Auto) 31.6 [place] % (Auto) 8.5 Eos % (Auto) 3.5 Baso % (Auto) 0.5 Absolute Neuts (auto) 4.6 Absolute Lymphs (auto) 2.63 Nucleated RBC % 0 Sodium 139 Potassium 4.2 Chloride 105 Carbon Dioxide 27.0 Anion Gap 7 BUN 20 H Creatinine 0.87 Estim Creat Clear Calc 96.17 Est GFR (MDRD) Af Amer 115 Est GFR (MDRD) Non-Af 95 BUN/Creatinine Ratio 22.9 H Glucose 157 H Lactic Acid 1.3 Calcium 8.6 Total Bilirubin 0.80 AST 23 ALT 16 Alkaline Phosphatase 55 Total Protein 7.2 Albumin 3.8 Globulin 3.4 Albumin/Globulin Ratio 1.1 Radiology Impression Abdomen/Pelvis CT 02/10/21 23:51 IMPRESSION: Similar appearance compared to February 16 of the left hemiscrotum large hernia containing mesenteric fat, vasculature, small bowel and large bowel with mild increased mesenteric edema. Large hemiscrotum fluid layering is present. No evidence of definitive underlying bowel obstruction. Underlying mild areas of strangulation cannot be completely excluded, with areas of mesenteric edema and scattered lymph nodes. Recommend general surgery consultation for further assessment management. Electronically Signed: Eric Gautam DO at 1:05 EDT , Service support , Assessment & Plan Assessment/Plan (1) Chronic hypoxemic respiratory failure: (2) COPD (chronic obstructive pulmonary disease): (3) Inguinal hernia: (4) Pulmonary hypertension: PLAN: 1. Large left inguinal hernia -CT scan demonstrates large inguinal hernia that contains mesenteric fat, vasculature, small bowel and large bowel. There is mesenteric edema consistent with incarceration -N.p.o. -We will admit pending transfer to [facility] -No IV fluids secondary to his severe pulmonary hypertension -Morphine 2 mg IV every 3 as needed, he does have a morphine pump in place that he states gives him preprogram doses for his pain 2. Chronic hypoxic respiratory failure secondary to COPD and severe pulmonary hypertension -He has an RVSP on his most recent echo of 84 mmHg -He is refusing IV Lasix as he says that it causes his obstructions -Continue with duo nebs and a fluid restriction -We will try to give him his home medications with sips otherwise will maintain his general n.p.o. status -His baseline oxygen requirement is around 6 L nasal cannula, currently he is between 6 to 8 L maintaining his oxygen sats in the low 90s. DVT: SCDs Charges/Coding Visit Charges OBSV E&M: 92274 Initial observation care L3
[2021-02-11] MEDS: Ipratropium/Albuterol Sulfate 3 ML AMPUL.NEB INHALATION ×2 (15:47→18:48)
[2021-02-11] MEDS: 0.9% Saline Lock 10 ML Syringe IV ×2 (16:20→19:37)
[2021-02-11] MEDS: Morphine 2 MG/ML Syringe IV ×3 (16:24→22:27)
--- NOTE | 2021-02-11 20:58 | NURSING ---
REPORT CALLED TO [facility] TO KEARA SLOAN, TRANSPORT BEING SET UP AND MARTIN CALLED AND UPDATED ABOUT TRANSFER.
[2021-02-11] MEDS: Ondansetron 4 MG/2 ML Vial IV (22:27)
== END 2021-02-11 22:30 | disposition short-term general hospital (02) ==
LOC: ED 02-11 06:29 → PCU 02-11 14:59
PROVIDERS: Admitting Provider Family Medicine; Emergency Provider Emergency Medicine; PCP Nurse Practitioner Adult Health; Visit Provider Family Medicine
DX: K40.90 Unilateral inguinal hernia, without obstruction or gangrene, not specified as recurrent (principal); K59.00 Constipation, unspecified; J96.11 Chronic respiratory failure with hypoxia; J44.9 Chronic obstructive pulmonary disease, unspecified; G47.33 Obstructive sleep apnea (adult) (pediatric); E66.9 Obesity, unspecified; I27.83 Eisenmenger's syndrome; I50.9 Heart failure, unspecified; G89.29 Other chronic pain; Z89.512 Acquired absence of left leg below knee; Z91.19 Patient's noncompliance with other medical treatment and regimen; Z79.82 Long term (current) use of aspirin; Z79.899 Other long term (current) drug therapy; Z79.51 Long term (current) use of inhaled steroids; Z87.891 Personal history of nicotine dependence
CPT/HCPCS: 74177; 80053; 83605; 85025; 94640; 96374; 96375; 96376; 99218; 99285; Q9967; A4216; G0378; J2405

== ENCOUNTER → 2021-08-24 09:39 | Outpatient (CLI) | payer MEDICARE, SELFPAY ==
--- NOTE | 2021-08-24 09:44 | RAD_ITS ---
STUDY: X-RAY - RIGHT SHOULDER REASON FOR EXAM: Male, 60 years old. PAIN TECHNIQUE: 3 view(s) of the shoulder. COMPARISON: None. FINDINGS: Normal glenohumeral articulation. Normal acromioclavicular joint. Normal acromion. Normal humeral head and visualized proximal humerus. The soft tissue structures are unremarkable. Normal visualized pulmonary apex. RAD/Shoulder min 2 Views IMPRESSION: Normal x-ray examination of the shoulder. Electronically Signed: Marco Ramos MD (Brooks) at 11:39 EST , Service support ,
--- NOTE | 2021-08-24 09:44 | RAD_ITS ---
STUDY: X-RAY - LEFT SHOULDER REASON FOR EXAM: Male, 60 years old. PAIN TECHNIQUE: 3 view(s) of the shoulder. COMPARISON: None. FINDINGS: Normal glenohumeral articulation. Normal acromioclavicular joint. Normal acromion. Normal humeral head and visualized proximal humerus. The soft tissue structures are unremarkable. Normal visualized pulmonary apex. RAD/Shoulder min 2 Views IMPRESSION: Normal x-ray examination of the shoulder. Electronically Signed: Marco Ramos MD (Brooks) at 11:38 EST , Service support ,
--- NOTE | 2021-08-24 09:45 | RAD_ITS ---
STUDY: X-RAY - PELVIS AND BILATERAL HIPS REASON FOR EXAM: Male, 60 years old. PAIN TECHNIQUE: AP view of the pelvis.? 2 views of the right hip, and 2 views of the left hip were obtained. COMPARISON: None. FINDINGS: There is a non-specific bowel gas pattern. Normal visualized soft tissue structures. Degenerative changes of the lumbar spine partially visualized. Electronic device projects over the left hip, likely neurostimulator device. Normal bilateral iliac wings, sacroiliac joints and visualized sacrum. Normal bilateral superior and inferior pubic rami. Normal pubic symphysis. Normal bilateral ischial tuberosities. Normal visualized right femoral head. Normal right acetabulum. There is mild articular joint space narrowing of the right hip. Normal visualized left femoral head. Normal left acetabulum. There is mild articular joint space narrowing of the left hip. RAD/Hips B/L min 2 views w/ Pelvis IMPRESSION: Mild degenerative narrowing of the bilateral hips. Electronically Signed: Marco Ramos MD ([place]) at 11:37 EST , Service support ,
== END ==
DX: M25.519 Pain in unspecified shoulder (principal); M25.551 Pain in right hip
CPT/HCPCS: 73030; 73521

== ENCOUNTER 2021-08-30 07:18 | Emergency (ER) | payer MEDICARE, MEDICAID, SELFPAY ==
[2021-08-30 07:21] VITALS: BP 128/72; PULSE 51; RESP 12; TEMP 37.2; O2SAT 90; BMI 32.7
--- NOTE | 2021-08-30 07:30 | CT_ITS ---
STUDY: CT ABDOMEN AND PELVIS WITH CONTRAST REASON FOR EXAM: Male, 60 years old. Abdominal pain RADIATION DOSAGE (If Supplied By Facility): CTDIvol = ( 20.36 ) mGy, DLP = ( 2064.31 ) mGycm TECHNIQUE: Transaxial images were obtained from the dome of the diaphragm to the symphysis pubis with oral contrast. Oral and amp; IV Gastrografin and amp; 100mL Isovue-370 was administered. Sagittal and coronal images were reconstructed. Individualized dose optimization techniques were used for this CT. COMPARISON: 02/11/2021. FINDINGS: The visualized lung bases are unremarkable. Mild cardiomegaly. Stable ill-defined 2.5 cm low-density lesion in the dome of the liver unchanged since prior examinations likely due to hemangioma. Hepatomegaly. Tiny gallstone. There is mild splenomegaly. There is diffuse atrophy of the pancreas. Normal bilateral adrenal glands. Normal right kidney. 1 cm cyst in the left kidney unchanged. Normal visualized stomach. Large left inguinal hernia containing fluid-filled small bowel loops,, mesenteric fat and spot of the colon extending to the left scrotal sac is again seen unchanged since the prior examination. Strangulation is better evaluated clinically. The overall appearance has not significantly changed since previous exam. Fecal retention. There is non-visualization of the appendix. There is diffuse atherosclerotic calcification of the abdominal aorta with elongation and tortuosity, but without a demonstrated aneurysm. Normal inferior vena cava. Normal retroperitoneum. Normal urinary bladder. Mild left hydrocele. There are small umbilical hernia containing fat. Multilevel degenerative changes in the spine. Hemangioma at the level of L1. CT/Abdomen/Pelvis WITH Contrast IMPRESSION: 1. Large left inguinal hernia containing mesenteric fat, dilated fluid-filled small bowel loops small bowel loops and colon extending to the left scrotal sac essentially unchanged since prior examination. 2. Hepatosplenomegaly. 3. Stable liver lesion likely meningioma unchanged. 4. Otherwise no focal acute inflammatory process. Electronically Signed: Ravindra Rouse, at 10:08 EST Tel , Service support ,
--- NOTE | 2021-08-30 07:31 | EDS_ITS ---
HPI HPI - GI History of Present Illness Chief Complaint: Abd Pain Informant: patient Abdominal Pain/Flank Pain Onset: Today Context: Gradual Onset Timing: Continuous Quality: - (Distended, pressure) Location: Diffuse Worsened by: Nothing Relieved by: Nothing Nausea/Vomiting/Emesis GI Symptom: Negative for Nausea and Vomiting Diarrhea/Melena/Hematochezia GI Symptom: Negative for Diarrhea, Melena and Hematochezia Associated Symptoms Associated Symptoms: Negative for Dysuria, Frequency and Hematuria Narrative Narrative: Presents with abdominal pain that began today. Patient states this feels similar to prior bowel obstructions. Patient states his pain feels like his abdomen is getting more distended. Patient states it is diffuse across his abdomen but worse in the lower abdomen. Patient states nothing makes it better nothing makes it worse. Patient denies any nausea or vomiting. Patient denies any diarrhea, melena, or hematochezia. Patient denies any urinary complaints. Patient denies any radiation of the pain. [facility] Medical History Acute CHF (congestive heart failure) Allergic rhinitis Cardiomegaly Chronic hypoxemic respiratory failure Chronic pain disorder Chronic sinusitis Congestive heart failure (CHF) COPD (chronic obstructive pulmonary disease) PAYTON (dyspnea on exertion) Former smoker Inguinal hernia Localized edema Noncompliance Nonrheumatic tricuspid valve regurgitation Obesity JERICA (obstructive sleep apnea) Pulmonary hypertension Pulmonary regurgitation Right ventricular dilation Right-sided congestive heart failure Sleep apnea Suspected sleep apnea Tobacco dependence Ventricular septal defect (VSD) Home Medications morphine (PF) 6.5 mg SQ DAILY 01/20/16 [History Last Taken Unknown] aspirin 81 mg tablet,delayed release 81 mg PO DAILY 05/22/19 [History Last Taken 02/10/21] ambrisentan 10 mg tablet 10 mg PO QDAY #90 tab 06/12/20 [Rx Last Taken 02/10/21] tadalafil (pulm. hypertension) 20 mg tablet (pulmonary hypertension) 20 mg PO BID #60 tab 06/12/20 [Rx Last Taken 02/10/21] albuterol sulfate 2.5 mg INHALATION Q4H PRN #180 ml 06/10/21 [Rx Last Taken Unknown] albuterol sulfate 90 mcg/actuation aerosol inhaler 2 puff INHALATION Q4H PRN #18 g 06/10/21 [Rx Last Taken Unknown] tiotropium 2.5 mcg-olodaterol 2.5 mcg/actuation mist for inhalation 2 puff INHALATION DAILY #4 g 06/10/21 [Rx Last Taken Unknown] Allergy/AdvReac Type Severity Reaction Status Date / Time warfarin [From Coumadin] AdvReac Severe Other - Verified 08/30/21 07:20 parodoxical low INR,myalgia and weakness Family History Brother Heart disease Mother Malignant tumor of pancreas Father Malignant neoplasm of lung Surgical History Below knee amputation status History of left below knee amputation History of right and left heart catheterization (01/27/16) History of right heart catheterization (04/16/19) morphine pump placement Social History Smoking Status: Former smoker quit date: 02/26/19 second hand exposure: No alcohol intake: never substance use type: does not use ROS ROS ED Constitutional Constitutional ED: Denies chills or fever(s) Eyes Eyes: Denies blurry vision or change in vision ENT ENT ED: Denies rhinorrhea or sore throat Cardiovascular Cardiovascular: Denies chest pain or palpitations Respiratory/Chest Respiratory/Chest: Denies cough or dyspnea Gastrointestinal Gastrointestinal: Reports abdominal pain; Denies diarrhea, melena, nausea or vomiting Genitourinary Genitourinary ED: Denies dysuria or hematuria Musculoskeletal Musculoskeletal: Denies back pain or neck pain Integumentary Denies abscess or rash Neurologic Neurologic: Denies headache(s) or weakness Allergic/Immunologic Allergic/Immunologic ED: Denies mouth swelling or urticaria EXAM Physical Exam Const Vital Signs: 08/30/21 07:21 08/30/21 08:26 08/30/21 10:00 Temperature 99 F Temperature Source Temporal Pulse Rate 51 L 62 59 L Respiratory Rate 12 20 H Blood Pressure 128/72 H 149/96 H 138/54 H Blood Pressure Mean 90 113 82 Pulse Ox 90 93 Oxygen Delivery Method Room Air Nasal Cannula Oxygen Flow Rate (L/min) 2 08/30/21 12:20 Temperature Temperature Source Pulse Rate 56 L Respiratory Rate 20 H Blood Pressure 130/72 H Blood Pressure Mean 91 Pulse Ox 96 Oxygen Delivery Method Nasal Cannula Oxygen Flow Rate (L/min) 2 Positive well nourished and well developed General Appearance ED: well developed HEENT Reports moist mucous membranes Neck supple and no JVD Resp normal respiratory effort and clear to auscultation bilaterally Cardio regular rate, regular rhythm and no murmurs GI normal to inspection, nondistended, normoactive bowel sounds and non-distended Auscultation: normoactive bowel sounds Palpation: soft and tender epigastric, LLQ, RLQ, LUQ, RUQ, periumbilical and suprapubic; Negative for guarding or rebound tenderness present Extremity normal to inspection General Extremety ED: Negative for edema or tenderness General Extremity: Negative for edema Neuro oriented x3, CN's II-XII intact bilaterally and no sensory deficits noted Sensorium / Orientation: alert Motor Exam: strength 5/5 throughout Psych mental status grossly normal Skin no rashes or lesions noted MDM MDM MDM Narrative Medical decision making narrative: Patient was given fluids, Zofran, and morphine. CBC was within normal limits. Comprehensive metabolic profile was essentially within normal limits. Lipase was normal. Urinalysis does not show any evidence of urinary tract infection. CT scan of the abdomen and pelvis was obtained. There is a left inguinal hernia with bowel contents. There is no evidence of obstruction. This was unchanged compared to previous CT scan. Patient is feeling better on reevaluation. Patient was advised of his findings. Patient was instructed to continue his pain medications as previously prescribed by his pain management physician. Patient was instructed to follow- up with his primary care physician in 3 to 5 days. Patient understood and was agreeable with the plan. All questions were answered. Lab Data Attestation: I reviewed the patient's lab results. Labs: Laboratory Results - last 24 hr 08/30/21 08/30/21 08/30/21 07:45 07:45 11:20 WBC 6.9 RBC 5.18 Hgb 15.6 Hct 46.3 MCV 89.4 MCH 30.1 MCHC 33.7 RDW Std Deviation 43.9 RDW Coeff of Reece 13.5 Plt Count 148 L MPV 9.7 Immature Gran % (Auto) 0.400 Neut % (Auto) 48.4 Lymph % (Auto) 39.6 [place] % (Auto) 6.4 Eos % (Auto) 4.5 Baso % (Auto) 0.7 Absolute Neuts (auto) 3.3 Absolute Lymphs (auto) 2.72 Nucleated RBC % 0 Sodium 138 Potassium 4.3 Chloride 104 Carbon Dioxide 29.0 Anion Gap 5 BUN 21 H Creatinine 0.84 Estim Creat Clear Calc 102.65 Est GFR (MDRD) Af Amer 120 Est GFR (MDRD) Non-Af 99 BUN/Creatinine Ratio 25.0 H Glucose 174 H Calcium 9.2 Total Bilirubin 0.90 AST 10 L ALT 21 Alkaline Phosphatase 75 Total Protein 7.9 Albumin 4.1 Globulin 3.8 Albumin/Globulin Ratio 1.1 Lipase 63 L Urine Color Yellow Urine Clarity Clear Urine pH 5.0 Ur Specific [place] 1.020 Urine Protein Negative Urine Glucose (UA) Normal Urine Ketones Negative Urine Occult Blood 25 H Urine Nitrite Negative Urine Bilirubin Negative Urine Urobilinogen Normal Ur Leukocyte Esterase Negative Urine RBC 0 SEEN Urine WBC 0 SEEN Ur Squamous Epith Cells 0 SEEN Urine Bacteria RARE Urine Mucus 0 SEEN Radiography Diagnostic Testing: Clinical Impression(s) from Imaging Studies Abdomen/Pelvis CT 08/30/21 07:30 IMPRESSION: 1. Large left inguinal hernia containing mesenteric fat, dilated fluid-filled small bowel loops small bowel loops and colon extending to the left scrotal sac essentially unchanged since prior examination. 2. Hepatosplenomegaly. 3. Stable liver lesion likely meningioma unchanged. 4. Otherwise no focal acute inflammatory process. Electronically Signed: Ravindra Stonekayla, at 10:08 EST Tel , Service support , Discharge Plan Triage Chief Complaint: Abd Pain ED Provider: Zain Rosado Dx/Rx/DC Orders Clinical Impression: Abdominal pain in male, Inguinal hernia Instructions: ED Abdominal Pain Unkn Cause Male... Prescriptions: No Action aspirin [Adult Aspirin Regimen] 81 mg tablet,delayed release (DR/EC) 81 mg PO DAILY RF: 0 Letairis 10 mg tablet 10 mg PO QDAY Qty: 90 RF: 3 tadalafil (pulm. hypertension) 20 mg tablet 20 mg PO BID Qty: 60 RF: 6 Stiolto Respimat 2.5-2.5 mcg/actuation mist 2 puff inhalation DAILY Qty: 4 RF: 6 albuterol sulfate 2.5 mg /3 mL (0.083 %) solution for nebulization 2.5 mg INHALATION Q4H PRN (Reason: Dyspnea/Wheezing/Sob) Qty: 180 RF: 3 Ventolin HFA 90 mcg/actuation HFA aerosol inhaler 2 puff INHALATION Q4H PRN (Reason: shortness of breath or wheezing) Qty: 18 RF: 6 morphine (PF) 5 MG/ML pt controlled analgesia syring 6.5 mg SQ DAILY RF: 0 Primary Care Provider: [facility] Corina Esquivel Referrals: [facility] Corina Esquivel [Primary Care Provider] - 3-5 Days Activity Restrictions/Additional Instructions: Continue your pain management medications as previously prescribed by your pain management physician. Disposition Disposition: Home, Self Care
[2021-08-30] MEDS: Morphine 4 MG/ML Syringe IV ×4 (07:50→13:53)
[2021-08-30] MEDS: Ondansetron 4 MG/2 ML Vial IV (07:51)
[2021-08-30] MEDS: 0.9% Normal Saline 1,000 ML 1000 ML IV (07:51)
[2021-08-30 08:02] LABS: Absolute Lymphocyte Count 2.72 X10^3/uL (0.83-4.51); Absolute Neutrophil Count 3.3 X10^3/uL (2.0-7.7); Basophil# 0.05 X10^3/uL; Basophil% 0.7 % (0-1); Eosinophil# 0.31 X10^3/uL; Eosinophils% 4.5 % (0-5); Hematocrit 46.3 % (40-54); Hemoglobin 15.6 g/dL (13.0-16.5); Lymphocyte # 2.72 X10^3/ul (0.83-4.51); Lymphocyte % 39.6 % (19-41); Mean Corp Hgb Conc 33.7 g/dL (32-36); Mean Corpuscular Hgb 30.1 pg (27.0-32.0); Mean Corpuscular Volume 89.4 fL (80-94); Mean Platelet Vol. 9.7 fl (6.2-12.0); Monocyte# 0.44 X10^3/uL; Monocyte% 6.4 % (0-10); NRBC Flagged by Analyzer 0 % (0-5); Neutrophil # 3.32 X10^3/uL (2.7-7.7); Neutrophil % 48.4 % (47-70); Platelet Count 148 K/mm3 (150-450); RBC Distribution Width CV 13.5 % (11.6-14.6); RBC Distribution Width SD 43.9 fl (35.1-43.9); Red Blood Count 5.18 M/mm3 (4.6-6.2); White Blood Count 6.9 K/mm3 (4.4-11.0)
[2021-08-30 08:19] LABS: ALB/GLOB Ratio 1.1 RATIO (0.9-2.4); AST(SGOT) 10 U/L (15-37); Alanine Aminotransfer ALT/SGPT 21 U/L (16-61); Albumin, Serum 4.1 g/dL (3.2-5.0); Alkaline Phosphatase 75 U/L (45-117); Anion Gap 5 (5-15); BUN 21 mg/dL (7-18); Calcium,Total 9.2 mg/dL (8.5-10.1); Chloride 104 mmol/L (98-107); Creatinine, Serum 0.84 mg/dL (0.70-1.30); EST Glomerular Filtration Rate 99 mL/min (>60); Est Glom Filt Rate - Afr Amer 120 mL/min (>60); Estimated Creatinine Clearance 102.65 ml/min; Globulin 3.8 g/dL (2.2-4.2); Glucose 174 mg/dL (74-106); Lipase 63 U/L (73-393); Potassium 4.3 mmol/L (3.5-5.1); Protein, Total 7.9 g/dL (6.4-8.2); Sodium Level 138 mmol/L (136-145)
[2021-08-30 08:26] VITALS: BP 149/96; PULSE 62; RESP 20; O2SAT 93
[2021-08-30 10:00] VITALS: BP 138/54; PULSE 59
[2021-08-30 11:29] LABS: Mucous, Urine 0 SEEN /hpf (<or=2+); Red Blood Cells-Urine 0 SEEN /hpf (0-5); Squamous Epithelial Cells - UA 0 SEEN /hpf (0-5); White Blood Cells 0 SEEN /hpf (0-5)
[2021-08-30 11:32] LABS: Color, Urine Yellow (Yellow); Glucose, Dipstick Normal (Normal); Ketone-Dipstick Negative (Negative); Leukocyte Esterase-Dipstick Negative /ul (Negative); Nitrite-Dipstick Negative (Negative); Occult Blood-Urine 25 /ul (Negative); Protein-Dipstick Negative (Negative); Urine Bilirubin Dipstick Negative (Negative); Urine Clarity Clear (Clear); Urine Urobilinogen Normal (Normal)
[2021-08-30 11:45] LABS: Bacteria RARE /hpf (None Seen)
[2021-08-30 12:20] VITALS: BP 130/72; PULSE 56; RESP 20; O2SAT 96
--- NOTE | 2021-08-30 13:25 | ED.RN ---
THIS NURSE IN THE ROOM TO ATTEMPT TO D/C THE PT. VISITOR STATES HE CANNOT GO HOME WITH NO PRESCRIPTION FOR PAIN MEDICATION. WHEN INFORMED THE DR IS NOT PRESCRIBING ANYTHING ELSE FOR PT. PT SHOULD TAKE HIS MEDICATION PRESCRIBED BY THE PAIN MANAGEMENT DR. VISITOR AND PT STATES I HAVE A MORPHINE PUMP. IT DOES DIRECTLY INTO MY SPINE SO IT DOES NOT HELP WITH ANY OTHER PAIN. IF HE IS NOT GETTING A PRESCRIPTION THEN YOU HAVE TO ADMIT HIM FOR PAIN MANAGEMENT. PT REQUESTING TO SPEAK WITH . DR THAKKAR INFORMED OF SAME
[2021-08-30 13:58] VITALS: BP 152/72; PULSE 63; RESP 16; O2SAT 96
== END 2021-08-30 14:04 | disposition home or self-care (01) ==
PROVIDERS: Emergency Provider Emergency Medicine; Visit Provider Emergency Medicine
DX: R10.30 Lower abdominal pain, unspecified (principal); K40.90 Unilateral inguinal hernia, without obstruction or gangrene, not specified as recurrent; G47.30 Sleep apnea, unspecified; Z87.891 Personal history of nicotine dependence
CPT/HCPCS: 74177; 80053; 81001; 83690; 85025; 96361; 96374; 96375; 96376; 99285; J7030; Q9967; A4216; J2405

== ENCOUNTER 2022-03-18 09:22 | Inpatient (IN) | payer MEDICARE, MEDICAID, SELFPAY ==
[2022-03-18] VITALS (29 sets, daily range): BP systolic 93–115; BP diastolic 45–71; PULSE 78–100; RESP 16–28; TEMP 2.5–37.4; O2SAT 90–100; BMI 32.3; BMI 32.4
--- NOTE | 2022-03-18 09:40 | EKG12_ITS ---
Test Reason : GI BLEED Blood Pressure : / mmHG Vent. Rate : 082 BPM Atrial Rate : 082 BPM P-R Int : 208 ms QRS Dur : 120 ms QT Int : 398 ms P-R-T Axes : 054 095 -01 degrees QTc Int : 464 ms Normal sinus rhythm Right bundle branch block Abnormal ECG Confirmed by ALEJO PLUMMER, SEA ([id number]), online editor AMRITA NAVARRETE ([id number]) on 03/19/2022 8:27:01 AM Referred By: Confirmed By:SEA DHILLON MD
[2022-03-18] MEDS: 0.9% Normal Saline 1,000 ML 150 ML IV (09:58)
--- NOTE | 2022-03-18 10:03 | ED.VIS.GI ---
HPI HPI - GI History of Present Illness Chief Complaint: GI Bleed Detail of Chief Complaint: GI bleed and orthostatic symptoms Informant: patient and spouse/S.O. Abdominal Pain/Flank Pain Onset: - (Patient has not had abdominal pain.) Nausea/Vomiting/Emesis GI Symptom: Positive for Nausea; Negative for Vomiting Diarrhea/Melena/Hematochezia GI Symptom: Positive for Melena and Hematochezia; Negative for Diarrhea Onset: Weeks (1.5 weeks ago, detailed in narrative) Associated Symptoms Associated Symptoms: Negative for Dysuria, Frequency, Hematuria or Urgency Narrative Narrative: Patient is a 61-year-old male who presents with GI bleed. 1.5 weeks ago he noted very dark red stool for 2 to days. He then had 2 days of no bowel movement. This was followed by black stool. He now has dark maroon-black stool. He took an aspirin 4 days ago for headache. He is not on an anticoagulant. He denies history of peptic ulcer disease, diverticulosis or diverticulitis. He denies bruising easily. He denies bleeding of his gums. He denies hematuria. He does report dyspnea on exertion that started today as well as orthostatic symptoms. He does have a history that is remarkable for a VSD with a dilated cardiomyopathy. Per old records he has NYHA class II heart failure. Prior similar symptoms: No Recent Illness/Hospitalization: No PFSH [facility] Medical History Acute CHF (congestive heart failure) Allergic rhinitis Cardiomegaly Chronic hypoxemic respiratory failure Chronic pain disorder Chronic sinusitis Congestive heart failure (CHF) COPD (chronic obstructive pulmonary disease) PAYTON (dyspnea on exertion) Former smoker Inguinal hernia Localized edema Noncompliance Nonrheumatic tricuspid valve regurgitation Obesity JERICA (obstructive sleep apnea) Pulmonary hypertension Pulmonary regurgitation Right ventricular dilation Right-sided congestive heart failure Sleep apnea Suspected sleep apnea Tobacco dependence Ventricular septal defect (VSD) Home Medications morphine (PF) 50 mg/50 mL (1 mg/mL) 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 hypertension) 20 mg tablet (pulmonary hypertension) 20 mg PO BID #60 tabs 06/12/20 [Rx Last Taken 02/10/21] albuterol sulfate 2.5 mg/3 mL (0.083 %) solution for nebulization 2.5 mg (3 mL) inhalation Q4H PRN Dyspnea/Wheezing/Sob #180 mL 06/10/21 [Rx Last Taken Unknown] albuterol sulfate 90 mcg/actuation aerosol inhaler (Ventolin HFA) 2 puff inhalation Q4H PRN shortness of breath or wheezing #18 grams 06/10/21 [Rx Last Taken Unknown] glycopyrrolate 9 mcg-formoterol 4.8 mcg HFA aerosol inhaler (Bevespi Aerosphere) 2 puff inhalation QAM AND QPM #1 inh 11/03/21 [Rx Last Taken Unknown] aspirin 81 mg tablet,delayed release (Adult Aspirin Regimen) 81 mg PO Q OTHER DAY 03/03/22 [History Last Taken Unknown] ferrous sulfate 325 mg (65 mg iron) tablet 325 mg PO DAILY 03/03/22 [History Last Taken Unknown] oxycodone-acetaminophen 5 mg-325 mg tablet 1 tab PO TID PRN Pain 03/03/22 [History Last Taken Unknown] potassium chloride 10 mEq tablet,extended release 10 meq PO DAILY 03/03/22 [History Last Taken Unknown] torsemide 20 mg tablet 20 mg PO DAILY 03/03/22 [History Last Taken Unknown] Allergy/AdvReac Type Severity Reaction Status Date / Time warfarin [From Coumadin] AdvReac Severe Other - Verified 03/18/22 09:25 parodoxical low INR,myalgia and weakness Family History Brother Heart disease Mother Malignant tumor of pancreas Father Malignant neoplasm of lung Surgical History Below knee amputation status History of left below knee amputation History of right and left heart catheterization (01/27/16) History of right heart catheterization (04/16/19) morphine pump placement Social History Smoking Status: Current every day smoker tobacco type: cigarettes second hand exposure: No alcohol intake: never substance use type: does not use caffeine: Yes Type: coffee Number of servings: 2 ROS ROS ED Constitutional Constitutional ED: Reports sweats; Denies chills, fever(s), subjective or weight loss ENT ENT ED: Denies ear pain, rhinorrhea or sore throat Cardiovascular Cardiovascular: Reports other Details: Orthostatic symptoms ; Denies chest pain, orthopnea, palpitations, paroxysmal nocturnal dyspnea or racing heartbeat Respiratory/Chest Respiratory/Chest: Reports dyspnea on exertion; Denies cough, dyspnea, orthopnea or paroxysmal nocturnal dyspnea Gastrointestinal Gastrointestinal: Reports melena; Denies abdominal pain, constipation, diarrhea, nausea or vomiting Genitourinary Genitourinary ED: Denies dysuria, hematuria or urinary frequency Musculoskeletal Musculoskeletal: Reports other Details: AKA due to industrial injury left lower extremity ; Denies arthralgias, back pain, myalgias or neck pain Integumentary Denies abscess Neurologic Neurologic: Denies headache(s), paresthesias or weakness Psychiatric Psychiatric: Denies anxiety or depression Endocrine Endocrinology: Denies polydipsia, polyphagia or polyuria Hematologic/Lymphatic Hematologic/Lymphatic: Denies easy bleeding or easy bruising EXAM Physical Exam Const Vital Signs: 03/18/22 09:23 03/18/22 10:03 Temperature 98 F Temperature Source Temporal Pulse Rate 85 Pulse Rate [Lying] 82 Pulse Rate [Sitting (for 1 minute prior to obtaining)] 81 Pulse Rate [Standing (for 1 minute prior to obtaining)] 89 Respiratory Rate 18 Blood Pressure 111/63 Blood Pressure [Lying] 106/60 Blood Pressure [Sitting (for 1 minute prior to obtaining)] 103/54 L Blood Pressure [Standing (for 1 minute prior to obtaining)] 98/53 L Blood Pressure Mean 79 Blood Pressure Mean [Lying] 75 Blood Pressure Mean [Sitting (for 1 minute prior to obtaining)] 70 Blood Pressure Mean [Standing (for 1 minute prior to obtaining)] 68 Pulse Ox 96 Oxygen Delivery Method Nasal Cannula Oxygen Flow Rate (L/min) 5 Positive well nourished, well developed and obese Constitutional Narrative: Patient appears slightly pale. General Appearance ED: well developed and pallor Nutritional Appearance: obese HEENT Reports TM's clear and dry mucous membranes normocephalic and atraumatic Tympanic Membrane ED: Yes TM's clear Mouth ED: Yes dry mucous membranes Mouth: dry mucous membranes Eyes PERRL and EOMs intact bilaterally General Eye ED: Yes pale conjunctiva; Negative for scleral icterus Neck no lymphadenopathy, supple and no JVD Resp normal respiratory effort and clear to auscultation bilaterally Cardio regular rate, regular rhythm, S1 normal heart sound, S2 normal heart sound and no murmurs GI non-tender, non-distended and no masses GI Narrative: Rectal exam is negative for fissures, fistulas or hemorrhoids. Stool is dark maroon in color. Palpation: soft Back/Spine no CVA tenderness Thoracic Spine / Upper Back: Negative for thoracic spinal tenderness Lumbar Spine / Lower Back: Negative for lumbar spinal tenderness Extremity full ROM Extremity Narrative: AKA left lower extremity Neuro CN's II-XII intact bilaterally, moves all extremities and no sensory deficits noted Sensorium / Orientation: alert Motor Exam: strength 5/5 throughout Psych mental status grossly normal and thought process normal Skin no wounds General Skin Exam: pallor; Negative for jaundice Lesions: no lesions Rashes: no rashes MDM MDM MDM Narrative Medical decision making narrative: Patient has symptoms of anemia. CBC was obtained to assess white count as well as H&H. BMP to assess BUN to creatinine ratio as well as renal function. Patient was typed and screened. Coags were obtained. EKG to rule out cardiac ischemia as a cause of his dyspnea. Patient is a GI bleed suspect lower based on history. Case discussed with Dr. Mejia who is on consultation and the hospitalist Dr. Jeffry Yo. Lab Data Attestation: I reviewed the patient's lab results. Lab results narrative: Hemoglobin is 5.6 with hematocrit of 18.4. This would explain his orthostatic symptoms and dyspnea. Will type and cross patient for 2 units of blood. These will be transfused. Coags normal. Labs: Laboratory Results - last 24 hr 03/18/22 09:45 WBC 4.8 RBC 2.08 L Hgb 5.6 L* Hct 18.4 L MCV 88.5 MCH 26.9 L MCHC 30.4 L RDW Std Deviation 43.0 RDW Coeff of Reece 13.3 Plt Count 160 MPV 10.0 Immature Gran % (Auto) 0.200 Neut % (Auto) 73.1 H Lymph % (Auto) 19.0 [place] % (Auto) 6.3 Eos % (Auto) 1.0 Baso % (Auto) 0.4 Absolute Neuts (auto) 3.5 Absolute Lymphs (auto) 0.91 Nucleated RBC % 0 Rhythm Strip Rhythm Strip: Sinus Rhythm Rate: 88 Ectopy: None EKG Initial EKG: Interpretation: Sinus Rhythm (Ventricular rate is 82. QRS complexes consistent with right bundle branch block. WI interval is 208 ms. QRS duration 120 ms. 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 Mejia, GI and hospitalist) and Arranging Admission or Transfer Discharge Plan Dx/Rx/DC Orders Clinical Impression: Acute GI bleeding, Orthostatic hypotension, Signs and symptoms of anemia, Symptomatic anemia Disposition Disposition: Acute Care Hospital [facility]
[2022-03-18 10:08] LABS: Absolute Lymphocyte Count 0.91 X10^3/uL (0.83-4.51); Absolute Neutrophil Count 3.5 X10^3/uL (2.0-7.7); Basophil# 0.02 X10^3/uL; Basophil% 0.4 % (0-1); Eosinophil# 0.05 X10^3/uL; Hematocrit 18.4 % (40-54); Lymphocyte # 0.91 X10^3/ul (0.83-4.51); Mean Corp Hgb Conc 30.4 g/dL (32-36); Mean Corpuscular Hgb 26.9 pg (27.0-32.0); Mean Corpuscular Volume 88.5 fL (80-94); Monocyte% 6.3 % (0-10); NRBC Flagged by Analyzer 0 % (0-5); Neutrophil % 73.1 % (47-70); POSITIVE COUNT YES; Platelet Count 160 K/mm3 (150-450); RBC Distribution Width CV 13.3 % (11.6-14.6); Red Blood Count 2.08 M/mm3 (4.6-6.2); White Blood Count 4.8 K/mm3 (4.4-11.0)
[2022-03-18 10:12] LABS: Differential Indicated SCAN CRITERIA MET; Hemoglobin 5.6 g/dL (13.0-16.5)
[2022-03-18 10:15] LABS: International Normalized Ratio 1.1; Prothrombin Time (Protime)PT. 13.9 SECONDS (11.7-14.9)
[2022-03-18 10:16] LABS: Partial Thromboplast Time 27.3 Seconds (24.1-36.2)
[2022-03-18 10:19] LABS: Anion Gap 3 (5-15); BUN 22 mg/dL (7-18); Calcium,Total 8.2 mg/dL (8.5-10.1); Chloride 105 mmol/L (98-107); Creatinine, Serum 0.71 mg/dL (0.70-1.30); EST Glomerular Filtration Rate 120 mL/min (>60); Est Glom Filt Rate - Afr Amer 145 mL/min (>60); Estimated Creatinine Clearance 112.81 ml/min; Glucose 115 mg/dL (74-106); Potassium 3.8 mmol/L (3.5-5.1); Sodium Level 139 mmol/L (136-145)
[2022-03-18 10:35] LABS: Differential Comment SCANNED; Hypochromasia 1+; Rouleaux 1+
[2022-03-18] MEDS: Ondansetron 4 MG/2 ML Vial IV (11:04)
[2022-03-18] MEDS: Morphine 4 MG/ML Syringe IV (11:04)
--- NOTE | 2022-03-18 13:31 | PCM.HP.STD ---
HPI - General General Date of Admission: 03/18/22 HPI Narrative CORNELIO MILLER, is a 61 M who presents to the hospital with melena. About a week and a half ago he noted some very dark stools for few days and then he did not have a bowel movement and then he has been noticing darker black stools, his iron supplementation but he also states that he took some aspirin for headache a few days ago. He denies any bloody emesis but has been noticing more fatigue and shortness of breath as well as some orthostasis. [facility] Medical History Acute CHF (congestive heart failure) Allergic rhinitis Cardiomegaly Chronic hypoxemic respiratory failure Chronic pain disorder Chronic sinusitis Congestive heart failure (CHF) COPD (chronic obstructive pulmonary disease) PAYTON (dyspnea on exertion) Former smoker Inguinal hernia Localized edema Noncompliance Nonrheumatic tricuspid valve regurgitation Obesity JERICA (obstructive sleep apnea) Pulmonary hypertension Pulmonary regurgitation Right ventricular dilation Right-sided congestive heart failure Sleep apnea Suspected sleep apnea Tobacco dependence Ventricular septal defect (VSD) Home Medications morphine (PF) 50 mg/50 mL (1 mg/mL) intravenous INTERIOR DESIGN ASSISTANT syringe 6.5 mg SQ DAILY 01/20/16 [History Last Taken Unknown] ambrisentan 10 mg tablet (Letairis) 10 mg PO QDAY #90 tabs 06/12/20 [Rx Last Taken 02/10/21] tadalafil (pulm. hypertension) 20 mg tablet (pulmonary hypertension) 20 mg PO BID #60 tabs 06/12/20 [Rx Last Taken 02/10/21] albuterol sulfate 2.5 mg/3 mL (0.083 %) solution for nebulization 2.5 mg (3 mL) inhalation Q4H PRN Dyspnea/Wheezing/Sob #180 mL 06/10/21 [Rx Last Taken Unknown] albuterol sulfate 90 mcg/actuation aerosol inhaler (Ventolin HFA) 2 puff inhalation Q4H PRN shortness of breath or wheezing #18 grams 06/10/21 [Rx Last Taken Unknown] glycopyrrolate 9 mcg-formoterol 4.8 mcg HFA aerosol inhaler (Bevespi Aerosphere) 2 puff inhalation QAM AND QPM #1 inh 11/03/21 [Rx Last Taken Unknown] aspirin 81 mg tablet,delayed release (Adult Aspirin Regimen) 81 mg PO Q OTHER DAY 03/03/22 [History Last Taken Unknown] ferrous sulfate 325 mg (65 mg iron) tablet 325 mg PO DAILY 03/03/22 [History Last Taken Unknown] oxycodone-acetaminophen 5 mg-325 mg tablet 1 tab PO TID PRN Pain 03/03/22 [History Last Taken Unknown] potassium chloride 10 mEq tablet,extended release 10 meq PO DAILY 03/03/22 [History Last Taken Unknown] torsemide 20 mg tablet 20 mg PO DAILY 03/03/22 [History Last Taken Unknown] Allergy/AdvReac Type Severity Reaction Status Date / Time warfarin [From Coumadin] AdvReac Severe Other - Verified 03/18/22 09:25 parodoxical low INR,myalgia and weakness Family History Brother Heart disease Mother Malignant tumor of pancreas Father Malignant neoplasm of lung Surgical History Below knee amputation status History of left below knee amputation History of right and left heart catheterization (01/27/16) History of right heart catheterization (04/16/19) morphine pump placement Social History Smoking Status: Current every day smoker tobacco type: cigarettes second hand exposure: No alcohol intake: never substance use type: does not use caffeine: Yes Type: coffee Number of servings: 2 ROS Constitutional Constitutional: Reports fatigue; Denies chills, fever(s) or malaise Eyes Eyes: Denies blurry vision ENT HEENT: Denies headache(s) or nasal discharge Cardiovascular Cardiovascular: Reports dyspnea on exertion; Denies chest pain or syncope Respiratory/Chest Respiratory/Chest: Denies cough, shortness of breath at rest or shortness of breath with exertion Gastrointestinal Gastrointestinal: Reports melena; Denies constipation, diarrhea, hematemesis, hematochezia, nausea or vomiting Genitourinary Genitourinary: Denies dysuria Neurologic Neurologic: Denies focal weakness, numbness or tremor(s) Psychiatric Psychiatric: Denies anxiety or depression Vital Signs Vital Signs Vital Signs: 03/18/22 09:23 03/18/22 10:03 03/18/22 10:43 Temperature 98 F 97.3 F L Temperature Source Temporal Temporal Pulse Rate 85 82 Pulse Rate [Lying] 82 Pulse Rate [Sitting (for 1 minute prior to obtaining)] 81 Pulse Rate [Standing (for 1 minute prior to obtaining)] 89 Respiratory Rate 18 16 Respiratory Effort Respiratory Depth Respiratory Pattern Blood Pressure 111/63 110/71 Blood Pressure [Lying] 106/60 Blood Pressure [Sitting (for 1 minute prior to obtaining)] 103/54 L Blood Pressure [Standing (for 1 minute prior to obtaining)] 98/53 L Blood Pressure Mean 79 84 Blood Pressure Mean [Lying] 75 Blood Pressure Mean [Sitting (for 1 minute prior to obtaining)] 70 Blood Pressure Mean [Standing (for 1 minute prior to obtaining)] 68 Blood Pressure Source Blood Pressure Position Blood Pressure Location Pulse Ox 96 96 Oxygen Delivery Method Nasal Cannula Nasal Cannula Oxygen Flow Rate (L/min) 5 5 03/18/22 11:33 03/18/22 11:32 03/18/22 12:07 Temperature 98.2 F 98.2 F Temperature Source Oral Oral Pulse Rate 83 87 80 Pulse Rate [Lying] Pulse Rate [Sitting (for 1 minute prior to obtaining)] Pulse Rate [Standing (for 1 minute prior to obtaining)] Respiratory Rate 18 18 Respiratory Effort Respiratory Depth Respiratory Pattern Blood Pressure 113/57 L 105/61 Blood Pressure [Lying] Blood Pressure [Sitting (for 1 minute prior to obtaining)] Blood Pressure [Standing (for 1 minute prior to obtaining)] Blood Pressure Mean 75 75 Blood Pressure Mean [Lying] Blood Pressure Mean [Sitting (for 1 minute prior to obtaining)] Blood Pressure Mean [Standing (for 1 minute prior to obtaining)] Blood Pressure Source Monitor Monitor Blood Pressure Position Semi-Fowlers Semi-Fowlers Blood Pressure Location Left Arm Left Arm Pulse Ox 96 96 Oxygen Delivery Method Nasal Cannula Nasal Cannula Oxygen Flow Rate (L/min) 6 6 03/18/22 12:22 03/18/22 11:45 Temperature 99 F Temperature Source Temporal Pulse Rate 79 Pulse Rate [Lying] Pulse Rate [Sitting (for 1 minute prior to obtaining)] Pulse Rate [Standing (for 1 minute prior to obtaining)] Respiratory Rate 16 Respiratory Effort Normal Non-Labored Respiratory Depth Normal Respiratory Pattern Normal Blood Pressure 106/62 Blood Pressure [Lying] Blood Pressure [Sitting (for 1 minute prior to obtaining)] Blood Pressure [Standing (for 1 minute prior to obtaining)] Blood Pressure Mean 76 Blood Pressure Mean [Lying] Blood Pressure Mean [Sitting (for 1 minute prior to obtaining)] Blood Pressure Mean [Standing (for 1 minute prior to obtaining)] Blood Pressure Source Monitor Blood Pressure Position Semi-Fowlers Blood Pressure Location Left Arm Pulse Ox 100 Oxygen Delivery Method Room Air Room Air Oxygen Flow Rate (L/min) Weight Weight: 226 lb 3.108 oz Body Mass Index (BMI) 32.4 Physical Exam Narrative General: Alert, Oriented x3, Cooperative, No apparent distress HEENT: Atraumatic, PERRLA, EOMI, Normocephalic Oral: Moist Mucosa Neck: Supple, No JVD Lungs: Clear to auscultation, Normal air movement, No rhonchi, No wheeze, No rales Cardiovascular: Regular rate, Regular Rhythm, Normal S1, Normal S2, 4 out of 6 JABARI Abdomen: Soft, Non Tender, Non-Distended, No Hepato-splenomegaly Extremities: No edema, Capillary Refill Less than 3 Seconds, left BKA Skin: No rashes, No breakdown Musculoskeletal: No Tenderness to Palpation of Joints or Extremities Neurological: Cranial nerves II-XII grossly intact, Motor Exam 5/5 strength throughout, Sensory exam intact to light touch and pain Psych/Mental Status: Normal Affect, Appropriate Results Lab / Micro Data Result Diagrams: 03/18/22 09:45 03/18/22 09:45 Labs: Laboratory Results - last 24 hr 03/18/22 09:45: WBC 4.8, RBC 2.08 L, Hgb 5.6 L*, Hct 18.4 L, MCV 88.5, MCH 26.9 L, MCHC 30.4 L, RDW Std Deviation 43.0, RDW Coeff of Reece 13.3, Plt Count 160, MPV 10.0, Immature Gran % (Auto) 0.200, Neut % (Auto) 73.1 H, Lymph % (Auto) 19.0, [place] % (Auto) 6.3, Eos % (Auto) 1.0, Baso % (Auto) 0.4, Absolute Neuts (auto) 3.5, Absolute Lymphs (auto) 0.91, Nucleated RBC % 0, Differential Comment SCANNED, Diff Path Review May foll, Hypochromasia 1+, Rouleaux 1+ 03/18/22 09:45: PT 13.9, INR 1.1, APTT 27.3 03/18/22 09:45: Sodium 139, Potassium 3.8, Chloride 105, Carbon Dioxide 31.0, Anion Gap 3 L, BUN 22 H, Creatinine 0.71, Estim Creat Clear Calc 112.81, Est GFR (MDRD) Af Amer 145, Est GFR (MDRD) Non-Af 120, BUN/Creatinine Ratio 31.0 H, Glucose 115 H, Calcium 8.2 L 03/18/22 09:45: Blood Type A POSITIVE, Antibody Screen NEGATIVE 03/18/22 09:45: Crossmatch See Detail 03/18/22 09:45: Crossmatch See Detail Micro: Microbiology 03/18/22 09:47 Stool Stool Occult Blood (ANYI) - Final Occult Blood Positive Rhythm Strip Rhythm Strip: Sinus Rhythm Rate: 88 Ectopy: None Assessment & Plan Assessment/Plan (1) Acute GI bleeding: (2) Orthostatic hypotension: PLAN: Plan 1. Acute GI bleed with acute blood loss anemia ? In August of this year his hemoglobin was normal and now is down to 5.6 ? We will transfuse 2 units that were ordered in the ER and will have another 2 units on hold but he will likely be transfused ? Continue with his iron supplement but hold his antiplatelets ? He does have history of severe pulmonary hypertension secondary to a VSD and Eisenmenger's syndrome so may need to be giving Lasix between his blood ? Consult GI for evaluation and treatment 2.? Chronic hypoxic respiratory failure secondary to COPD and severe pulmonary hypertension/chronic VSD with Eisenmenger syndrome -He has an RVSP on his most recent echo of 84 mmHg -Continue with albuterol -His baseline oxygen requirement is around 6 L nasal cannula -We will resume all of his home medications when able pending whether or not he needs a colonoscopy if the EGD is negative ? He is going to get an outpatient cardiac MRI DVT: SCDs Charges/Coding Visit Charges Inpatient E&M: 48162 Init Hosp L2
--- NOTE | 2022-03-18 14:03 | OP.CCLET_ITS ---
06/02/2022 Cor[facility] Re : Upper GI endoscopy procedure for Reji Valentin [facility] This procedure was performed on February. My impressions and recommendations are as follows: Impressions : - Normal esophagus. - Multiple non-bleeding angioectasias in the stomach. Treated with thermal therapy. - Normal second portion of the duodenum. - No specimens collected. Recommendations : - [facility] for [facility] care. - Clear liquid diet today. - For future colonoscopy the patient will require an extended preparation. If there are any questions, please contact the thread drawer. - Continue present medications. My findings are described in the full procedure note, which is enclosed. If I can be of further assistance, please feel free to contact me at . Sincerely, Zaire Friend, 03/18/2022 2:02:44 PM This report has been signed electronically.
--- NOTE | 2022-03-18 14:03 | OP.EGD_ITS ---
Patient Name: Reji Salinas Procedure Date: 03/18/2022 1:34 PM Date of : 1960 Age: 61 Procedure: Upper GI endoscopy Indications: Iron deficiency anemia, Hematochezia Providers: Zaire Mejia DO Medicines: Monitored Anesthesia Care Patient Profile: This is a 61 year old male. Refer to note in patient chart for documentation of history and physical. Patient has symptoms. Complications: No immediate complications. Procedure: Pre-Anesthesia Assessment: - Prior to the procedure, a History and Physical was performed, and patient medications and allergies were reviewed. The risks and benefits of the procedure and the sedation options and risks were discussed with the patient. All questions were answered and informed consent was obtained. Patient identification and proposed procedure were verified by the physician. Mental Status Examination: alert and oriented. Airway Examination: normal oropharyngeal airway and neck mobility. Respiratory Examination: clear to auscultation. CV Examination: normal. Prophylactic Antibiotics: The patient does not require prophylactic antibiotics. Prior Anticoagulants: The patient has taken no previous anticoagulant or antiplatelet agents. After reviewing the risks and benefits, the patient was deemed in satisfactory condition to undergo the procedure. The anesthesia plan was to use moderate sedation / analgesia (conscious sedation). Immediately prior to administration of medications, the patient was re-assessed for adequacy to receive sedatives. The heart rate, respiratory rate, oxygen saturations, blood pressure, adequacy of pulmonary ventilation, and response to care were monitored throughout the procedure. The physical status of the patient was re-assessed after the procedure. After obtaining informed consent, the endoscope was passed under direct vision. Throughout the procedure, the patient's blood pressure, pulse, and oxygen saturations were monitored continuously. The Endoscope was introduced through the mouth, and advanced to the second part of duodenum. The upper GI endoscopy was accomplished without difficulty. The patient tolerated the procedure well. Scope In: 1:50:32 PM Scope Out: 1:54:56 PM Total Procedure Duration Time 0 hours 4 minutes 24 seconds Findings: The examined esophagus was normal. Multiple 5 mm no bleeding angioectasias were found in the cardia and in the gastric fundus. Coagulation to prevent future bleeding of the gastric cardia hemorrhoids using argon plasma at 0.3 liters/minute and 20 grajeda was successful. The second portion of the duodenum was normal. Impression: - Normal esophagus. - Multiple non-bleeding angioectasias in the stomach. Treated with thermal therapy. - Normal second portion of the duodenum. - No specimens collected. Recommendation: - Return patient to [facility] for ongoing care. - Clear liquid diet today. - For future colonoscopy the patient will require an extended preparation. If there are any questions, please contact the silo operator. - Continue present medications. Procedure Code(s): --- Professional --- 67212, Esophagogastroduodenoscopy, flexible, transoral; diagnostic, including collection of specimen(s) by brushing or washing, when performed (separate procedure) CPT copyright 2017 [employer]. All rights reserved. The codes documented in this report are preliminary and upon sales representative aircraft review may be revised to meet current compliance requirements. Zaire Mejia DO 03/18/2022 2:02:44 PM This report has been signed electronically. Number of Addenda: 1 Note Initiated On: 03/18/2022 1:34 PM Addendum Number: 1 Addendum Date: 06/02/2022 6:12:04 AM MAC was used as sedation for this procedure. Zaire Mejia DO 06/02/2022 6:12:11 AM This report has been signed electronically.
[2022-03-18] MEDS: Bisacodyl 5 MG Tablet 20 MG PO (14:40)
[2022-03-18] MEDS: oxyCODONE 5 MG Tablet PO ×2 (15:04→21:27)
[2022-03-18] MEDS: Electrolyte Solution/Peg's 4000 ML PO (15:52)
[2022-03-18] MEDS: Ipratropium/Albuterol Sulfate 3 ML AMPUL.NEB INHALATION (17:40)
--- NOTE | 2022-03-18 18:18 | PCM.CONS.GEN ---
Assessment & Plan Assessment/Plan (1) Acute GI bleeding: PLAN: The differential diagnosis for an acute GI bleed in the setting of a patient that has VSD, pulmonary hypertension, CHF would be AV malformations of the upper GI tract. As he can develop anywhere in his GI tract secondary to his VSD with Eisenmenger phenomenon. Also on the differential diagnosis would be portal gastropathy as a cause of GI bleed, peptic ulcer disease possible varices, lower GI bleed secondary to AVMs, diverticular bleed and less likely neoplasia. He should undergo an upper endoscopy and if that is negative a colonoscopy and if that is negative a capsule endoscopy to evaluate his entire GI tract due to the fact that he needs to be on anticoagulation and antiplatelet therapy due to cardiovascular disease and history of VSD along with severe pulm hypertension. HPI Consult Data Date of Consult: 03/18/22 HPI Narrative Reason for Consultation: GI bleed HPI Narrative: CORNELIO MILLER, is a 61 M who presents to the ED with lower GI bleeding. He has a history of VSD, Eisenmenger syndrome, pulmonary hypertension, tricuspid valve regurgitation, right heart failure, superimposed upon his underlying longstanding scrotal hernia. He is on 4 to 5 L of oxygen at baseline. In the ED he was discovered to have a hemoglobin of 5.7 with elevated BUN/creatinine ratio of 22:1. He complains of darkish maroonish stools with some bright red blood per rectum.? For the past 1.5 weeks ago he noted very dark red stool for 2 to days.? He then had 2 days of no bowel movement.? This was followed by black stool.? He now has dark maroon-black stool.? He took an aspirin 4 days ago for headache.? He is not on an anticoagulant.? He denies history of peptic ulcer disease, diverticulosis or diverticulitis.? He denies bruising easily.? He denies bleeding of his gums.? He denies hematuria. He does report dyspnea on exertion that started today as well as orthostatic symptoms. [facility] Medical History Acute CHF (congestive heart failure) Allergic rhinitis Cardiomegaly Chronic hypoxemic respiratory failure Chronic pain disorder Chronic sinusitis Congestive heart failure (CHF) COPD (chronic obstructive pulmonary disease) PAYTON (dyspnea on exertion) Former smoker Inguinal hernia Localized edema Noncompliance Nonrheumatic tricuspid valve regurgitation Obesity JERICA (obstructive sleep apnea) Pulmonary hypertension Pulmonary regurgitation Right ventricular dilation Right-sided congestive heart failure Sleep apnea Suspected sleep apnea Tobacco dependence Ventricular septal defect (VSD) Home Medications morphine (PF) 50 mg/50 mL (1 mg/mL) intravenous GEOMORPHOLOGY TEACHER syringe 6.5 mg SQ DAILY 01/20/16 [History Last Taken Unknown] ambrisentan 10 mg tablet (Letairis) 10 mg PO QDAY #90 tabs 06/12/20 [Rx Last Taken 02/10/21] tadalafil (pulm. hypertension) 20 mg tablet (pulmonary hypertension) 20 mg PO BID #60 tabs 06/12/20 [Rx Last Taken 02/10/21] albuterol sulfate 2.5 mg/3 mL (0.083 %) solution for nebulization 2.5 mg (3 mL) inhalation Q4H PRN Dyspnea/Wheezing/Sob #180 mL 06/10/21 [Rx Last Taken Unknown] albuterol sulfate 90 mcg/actuation aerosol inhaler (Ventolin HFA) 2 puff inhalation Q4H PRN shortness of breath or wheezing #18 grams 06/10/21 [Rx Last Taken Unknown] glycopyrrolate 9 mcg-formoterol 4.8 mcg HFA aerosol inhaler (Bevespi Aerosphere) 2 puff inhalation QAM AND QPM #1 inh 11/03/21 [Rx Last Taken Unknown] aspirin 81 mg tablet,delayed release (Adult Aspirin Regimen) 81 mg PO Q OTHER DAY 03/03/22 [History Last Taken Unknown] ferrous sulfate 325 mg (65 mg iron) tablet 325 mg PO DAILY 03/03/22 [History Last Taken Unknown] oxycodone-acetaminophen 5 mg-325 mg tablet 1 tab PO TID PRN Pain 03/03/22 [History Last Taken Unknown] potassium chloride 10 mEq tablet,extended release 10 meq PO DAILY 03/03/22 [History Last Taken Unknown] torsemide 20 mg tablet 20 mg PO DAILY 03/03/22 [History Last Taken Unknown] Allergy/AdvReac Type Severity Reaction Status Date / Time warfarin [From Coumadin] AdvReac Severe Other - Verified 03/18/22 09:25 parodoxical low INR,myalgia and weakness Family History Brother Heart disease Mother Malignant tumor of pancreas Father Malignant neoplasm of lung Surgical History Below knee amputation status History of left below knee amputation History of right and left heart catheterization (01/27/16) History of right heart catheterization (04/16/19) morphine pump placement Social History Smoking Status: Current every day smoker tobacco type: cigarettes second hand exposure: No alcohol intake: never substance use type: does not use caffeine: Yes Type: coffee Number of servings: 2 ROS Constitutional Constitutional: Reports fatigue; Denies chills, fever(s) or malaise Eyes Eyes: Denies blurry vision ENT HEENT: Denies headache(s) or nasal discharge Cardiovascular Cardiovascular: Reports dyspnea on exertion; Denies chest pain or syncope Respiratory/Chest Respiratory/Chest: Denies cough, shortness of breath at rest or shortness of breath with exertion Gastrointestinal Gastrointestinal: Reports melena; Denies constipation, diarrhea, hematemesis, hematochezia, nausea or vomiting Genitourinary Genitourinary: Denies dysuria Neurologic Neurologic: Denies focal weakness, numbness or tremor(s) Psychiatric Psychiatric: Denies anxiety or depression Physical Exam Narrative General: Alert, Oriented x3, Cooperative, No apparent distress HEENT: Atraumatic, PERRLA, EOMI, Normocephalic Oral: Moist Mucosa Neck: Supple, No JVD Lungs: Clear to auscultation, Normal air movement, No rhonchi, No wheeze, No rales Cardiovascular: Regular rate, Regular Rhythm, Normal S1, Normal S2, 4 out of 6 JABARI Abdomen: Soft, Non Tender, Non-Distended, No Hepato-splenomegaly Extremities: No edema, Capillary Refill Less than 3 Seconds, left BKA Skin: No rashes, No breakdown Musculoskeletal: No Tenderness to Palpation of Joints or Extremities Neurological: Cranial nerves II-XII grossly intact, Motor Exam 5/5 strength throughout, Sensory exam intact to light touch and pain Psych/Mental Status: Normal Affect, Appropriate Lab / Micro Data Result Diagrams: 03/18/22 09:45 03/18/22 09:45 Labs: Laboratory Results - last 24 hr 03/18/22 09:45: WBC 4.8, RBC 2.08 L, Hgb 5.6 L*, Hct 18.4 L, MCV 88.5, MCH 26.9 L, MCHC 30.4 L, RDW Std Deviation 43.0, RDW Coeff of Reece 13.3, Plt Count 160, MPV 10.0, Immature Gran % (Auto) 0.200, Neut % (Auto) 73.1 H, Lymph % (Auto) 19.0, [place] % (Auto) 6.3, Eos % (Auto) 1.0, Baso % (Auto) 0.4, Absolute Neuts (auto) 3.5, Absolute Lymphs (auto) 0.91, Nucleated RBC % 0, Differential Comment SCANNED, Diff Path Review May foll, Hypochromasia 1+, Rouleaux 1+ 03/18/22 09:45: PT 13.9, INR 1.1, APTT 27.3 03/18/22 09:45: Sodium 139, Potassium 3.8, Chloride 105, Carbon Dioxide 31.0, Anion Gap 3 L, BUN 22 H, Creatinine 0.71, Estim Creat Clear Calc 112.81, Est GFR (MDRD) Af Amer 145, Est GFR (MDRD) Non-Af 120, BUN/Creatinine Ratio 31.0 H, Glucose 115 H, Calcium 8.2 L 03/18/22 09:45: Blood Type A POSITIVE, Antibody Screen NEGATIVE 03/18/22 09:45: Crossmatch See Detail 03/18/22 09:45: Crossmatch See Detail Micro: Microbiology 03/18/22 09:47 Stool Stool Occult Blood (ANYI) - Final Occult Blood Positive Rhythm Strip Rhythm Strip: Sinus Rhythm Rate: 88 Ectopy: None Charges/Coding Visit Charges Inpatient E&M: 52872 Init Hosp L2
[2022-03-18] MEDS: Morphine 2 MG/ML Syringe IV (18:30)
[2022-03-18] MEDS: Furosemide 20 MG/2 ML VIAL IV (18:30)
[2022-03-18] MEDS: 0.9% Saline Lock 10 ML Syringe IV (18:30)
[2022-03-18] MEDS: Magnesium Hydroxide 30 ML UDC PO (18:30)
[2022-03-18] MEDS: Acetaminophen 325 MG Tablet 650 MG PO (19:38)
[2022-03-18 20:03] LABS: Hemoglobin 6.8 g/dL (13.0-16.5)
[2022-03-18] MEDS: Potassium Chloride Oral Tablet 20 MEQ PO (21:04)
[2022-03-19] VITALS (35 sets, daily range): BP systolic 83–120; BP diastolic 41–90; PULSE 80–128; RESP 16–26; TEMP 36.2–37.2; O2SAT 74–97; BMI 32.3
--- NOTE | 2022-03-19 01:29 | NURSING ---
Pt states he would like to try another Milk of Magnesia w/ significant amount of water because he is not passing gas. Dr. Mejia was paged to call this RN's number around [phone] to talk about pt request.
[2022-03-19] MEDS: Magnesium Citrate 300 ML PO (02:51)
[2022-03-19] MEDS: oxyCODONE 5 MG Tablet PO ×2 (03:45→16:32)
[2022-03-19 04:23] LABS: Absolute Lymphocyte Count 0.52 X10^3/uL (0.83-4.51); Absolute Neutrophil Count 8.2 X10^3/uL (2.0-7.7); Basophil# 0.01 X10^3/uL; Basophil% 0.1 % (0-1); Eosinophil# 0.01 X10^3/uL; Eosinophils% 0.1 % (0-5); Hematocrit 24.9 % (40-54); Hemoglobin 7.7 g/dL (13.0-16.5); Lymphocyte # 0.52 X10^3/ul (0.83-4.51); Lymphocyte % 5.5 % (19-41); Mean Corp Hgb Conc 30.9 g/dL (32-36); Mean Corpuscular Hgb 26.8 pg (27.0-32.0); Mean Corpuscular Volume 86.8 fL (80-94); Mean Platelet Vol. 9.2 fl (6.2-12.0); Monocyte# 0.54 X10^3/uL; Monocyte% 5.8 % (0-10); NRBC Flagged by Analyzer 0 % (0-5); Neutrophil # 8.23 X10^3/uL (2.7-7.7); Neutrophil % 87.8 % (47-70); POSITIVE DIFFERENTIAL YES; Platelet Count 143 K/mm3 (150-450); RBC Distribution Width SD 44.3 fl (35.1-43.9); Red Blood Count 2.87 M/mm3 (4.6-6.2); White Blood Count 9.4 K/mm3 (4.4-11.0)
[2022-03-19 04:36] LABS: Anion Gap 4 (5-15); BUN 20 mg/dL (7-18); BUN/Creat Ratio 26.6 RATIO (10-20); Calcium,Total 8.7 mg/dL (8.5-10.1); Chloride 101 mmol/L (98-107); Creatinine, Serum 0.75 mg/dL (0.70-1.30); EST Glomerular Filtration Rate 112 mL/min (>60); Est Glom Filt Rate - Afr Amer 135 mL/min (>60); Glucose 137 mg/dL (74-106); Magnesium 2.6 mg/dL (1.6-2.6); Potassium 3.8 mmol/L (3.5-5.1); Sodium Level 137 mmol/L (136-145)
[2022-03-19 04:44] LABS: Differential Indicated SCAN CRITERIA MET
[2022-03-19 04:46] LABS: Differential Comment SCANNED
--- NOTE | 2022-03-19 05:55 | EKG12_ITS ---
Test Reason : AM EKG Blood Pressure : / mmHG Vent. Rate : 080 BPM Atrial Rate : 080 BPM P-R Int : 178 ms QRS Dur : 118 ms QT Int : 420 ms P-R-T Axes : 081 088 052 degrees QTc Int : 484 ms Normal sinus rhythm Incomplete right bundle branch block ST & T wave abnormality, consider anterior ischemia Abnormal ECG When compared with ECG of 18-MAR-2022 10:04, MANUAL COMPARISON REQUIRED, DATA IS UNCONFIRMED Confirmed by NAT PLUMMER, MEMO ([id number]), industrial editor KATHERIN CHAMPION ([id number]) on 03/24/2022 12:53:49 PM Referred By: Sanaz Confirmed By:MEMO JOHNS MD
--- NOTE | 2022-03-19 07:00 | RAD_ITS ---
STUDY: X-RAY CHEST REASON FOR EXAM: Male, 61 years old. Pre-op TECHNIQUE: Single AP portable view of the chest. COMPARISON: Comparison is made with prior study dated 01/30/2021. FINDINGS: EKG electrodes are seen. Progressive increased markings at the lung bases worse at the left lung base. There is no demonstrated pleural abnormality. There is moderate cardiac enlargement. Normal mediastinum and kang. There is prominence of the pulmonary hilar arteries without peripheral pulmonary vascular congestion, suggesting pulmonary hypertension. Normal visualized aortic arch and descending thoracic aorta. There are diffuse degenerative changes of the visualized thoracic spine. Normal visualized ribs, clavicles, and shoulders. There is no demonstrated abnormality of the visualized soft tissue structures of the upper abdomen. RAD/Chest 1 View (Portable) IMPRESSION: Cardiomegaly. Enlargement of the bilateral pulmonary arteries. Progressive atelectasis and/or infiltrates at the lung bases worse at the left lung base. Electronically Signed: Silvestre Alvarado MD at 10:47 EDT ,
[2022-03-19] MEDS: Ferrous Sulfate 325 MG Tablet PO (09:00)
[2022-03-19] MEDS: 0.9% Saline Lock 10 ML Syringe IV ×4 (09:00→22:23)
[2022-03-19] MEDS: Ondansetron 4 MG/2 ML Vial IV (09:15)
--- NOTE | 2022-03-19 09:38 | PN.HOSP_ITS ---
Subjective Subjective Having some abdominal pain from the prep he was trying to do overnight. He has been having difficulty with the prep secondary to his large inguinal hernia that was never repaired at [facility] secondary to his cardiac issues. EGD yesterday did not demonstrate an acute bleed so the plan was for colonoscopy. We will try to have an enema done today. Objective Data Objective Data Vital Signs: Vital Signs Temp Pulse Resp BP Pulse Ox O2 Del Method O2 Flow Rate 97.2 F L 80 18 112/65 92 Nasal Cannula 6 03/19/22 09:05 03/19/22 09:05 03/19/22 09:05 03/19/22 09:05 03/19/22 09:05 03/19/22 09:05 03/19/22 09:05 Oxygen Flow Rate (L/min) 6 Oxygen Delivery Method Nasal Cannula Weight: 225 lb 8.526 oz Body Mass Index (BMI) 32.3 Intake & Output: Intake and Output for Last 24 Hours 03/18/22 03/19/22 03/20/22 03:59 03:59 03:59 Intake Total 3320 / 3320 110 / 110 Balance 3320 / 3320 110 / 110 Lab / Micro Data Result Diagrams: 03/19/22 04:16 03/19/22 04:16 Labs: Laboratory Results - last 24 hr 03/18/22 09:45: WBC 4.8, RBC 2.08 L, Hgb 5.6 L*, Hct 18.4 L, MCV 88.5, MCH 26.9 L, MCHC 30.4 L, RDW Std Deviation 43.0, RDW Coeff of Reece 13.3, Plt Count 160, MPV 10.0, Immature Gran % (Auto) 0.200, Neut % (Auto) 73.1 H, Lymph % (Auto) 19.0, Beaver % (Auto) 6.3, Eos % (Auto) 1.0, Baso % (Auto) 0.4, Absolute Neuts (auto) 3.5, Absolute Lymphs (auto) 0.91, Nucleated RBC % 0, Differential Comment SCANNED, Diff Path Review May foll, Hypochromasia 1+, Rouleaux 1+ 03/18/22 09:45: PT 13.9, INR 1.1, APTT 27.3 03/18/22 09:45: Sodium 139, Potassium 3.8, Chloride 105, Carbon Dioxide 31.0, Anion Gap 3 L, BUN 22 H, Creatinine 0.71, Estim Creat Clear Calc 112.81, Est GFR (MDRD) Af Amer 145, Est GFR (MDRD) Non-Af 120, BUN/Creatinine Ratio 31.0 H, Glucose 115 H, Calcium 8.2 L 03/18/22 09:45: Blood Type A POSITIVE, Antibody Screen NEGATIVE 03/18/22 09:45: Crossmatch See Detail 03/18/22 09:45: Crossmatch See Detail 03/18/22 19:50: Hgb 6.8 L, Hct 22.0 L 03/19/22 04:16: WBC 9.4, RBC 2.87 L, Hgb 7.7 L, Hct 24.9 L, MCV 86.8, MCH 26.8 L , MCHC 30.9 L, RDW Std Deviation 44.3 H, RDW Coeff of Reece 14.0, Plt Count 143 L, MPV 9.2, Immature Gran % (Auto) 0.700, Neut % (Auto) 87.8 H, Lymph % (Auto) 5.5 L, Beaver % (Auto) 5.8, Eos % (Auto) 0.1, Baso % (Auto) 0.1, Absolute Neuts (auto) 8.2 H, Absolute Lymphs (auto) 0.52 L, Nucleated RBC % 0, Differential Comment SCANNED 03/19/22 04:16: Sodium 137, Potassium 3.8, Chloride 101, Carbon Dioxide 32.0, Anion Gap 4 L, BUN 20 H, Creatinine 0.75, Estim Creat Clear Calc 106.80, Est GFR (MDRD) Af Amer 135, Est GFR (MDRD) Non-Af 112, BUN/Creatinine Ratio 26.6 H, Glucose 137 H, Calcium 8.7 03/19/22 04:16: Hgb Cancelled 03/19/22 04:16: Magnesium 2.6 Micro: Microbiology 03/18/22 09:47 Stool Stool Occult Blood (ANYI) - Final Occult Blood Positive Rhythm Strip Rhythm Strip: Sinus Rhythm Rate: 88 Ectopy: None Physical Exam Narrative General: Alert, Oriented x3, Cooperative, No apparent distress HEENT: Atraumatic, PERRLA, EOMI, Normocephalic Oral: Moist Mucosa Neck: Supple, No JVD Lungs: Clear to auscultation, Normal air movement, No rhonchi, No wheeze, No rales Cardiovascular: Regular rate, Regular Rhythm, Normal S1, Normal S2, 4 out of 6 JABARI Abdomen: Soft, Non Tender, Non-Distended, No Hepato-splenomegaly, large left inguinal hernia nonreducible Extremities: No edema, Capillary Refill Less than 3 Seconds, left BKA Skin: No rashes, No breakdown Musculoskeletal: No Tenderness to Palpation of Joints or Extremities Neurological: Cranial nerves II-XII grossly intact, Motor Exam 5/5 strength throughout, Sensory exam intact to light touch and pain Psych/Mental Status: Normal Affect, Appropriate Assessment & Plan Assessment/Plan (1) Acute GI bleeding: (2) Orthostatic hypotension: PLAN: Plan 1. Acute GI bleed with acute blood loss anemia ? In August of this year his hemoglobin was normal and now is down to 5.6 on admission. Currently 7.7 ? We will transfuse 2 units that were ordered in the ER and will have another 2 units on hold but he will likely be transfused ? Continue with his iron supplement but hold his antiplatelets ? He does have history of severe pulmonary hypertension secondary to a VSD and Eisenmenger's syndrome so may need to give Lasix between his blood ? Consult GI, EGD did not demonstrate an acute source of bleeding so he is undergoing prep for colonoscopy 2.? Chronic hypoxic respiratory failure secondary to COPD and severe pulmonary hypertension/chronic VSD with Eisenmenger syndrome -He has an RVSP on his most recent echo of 84 mmHg -Continue with albuterol -His baseline oxygen requirement is around 6 L nasal cannula -We will resume all of his home medications when able pending whether or not he needs a colonoscopy if the EGD is negative ? He is going to get an outpatient cardiac MRI DVT: SCDs Charges/Coding Visit Charges Inpatient E&M: 57206 Subs Hosp L2
--- NOTE | 2022-03-19 10:00 | CASEMGMT ---
[place] Face to Face with patient for initial transition planning/care coordination assessment. [place] introduced self and role at [facility]. Patient sitting at edge of bed, alert and oriented. Patient willing to participate in assessment and is able to answer all questions appropriately. Care providers, pharmacy, and demographics verified. Patient wishes to discharge home, denies need for home health at this time. Patient states he has no further needs or concerns at this time. CM to follow for discharge planning needs that may arise. PCP:Corina Rivero Specialists: Sunday, beam builder; Peggy, beam builder [facility] main; Cande, registered dietitian Preferred Pharmacy: [facility] Insurance: [employer] Prescription Benefit: yes Living Will/HPOA: none LNOK: , son Living Arrangements: Patient lives with in a single story home with 1 step to enter. Patient states he is independent at home. Transportation: self, DME/HHC: Patient has cane, grab bars, nebulizer, and home oxygen at 5 lpm with portability through [facility] [place]. LUTHER MILLS called and clarified home oxygen order and most recent order is 8lpm continuous. Family is able to bring O2 tank from home. Disposition Plan: Patient to discharge home with family support and follow-up plans in place. Mariaa VITAL, RN, CM
[2022-03-19] MEDS: Lactated Ringers 1,000 ML 15 ML IV (12:00)
--- NOTE | 2022-03-19 12:15 | COLBX_PTH ---
PATIENT: CORNELIO MILLER LOC: [facility] U#:[id number] AGE/SX: 61/M ROOM: ICU05 RE03/18/[address]: Dr. Manuel Casey MD : 1960 BED: 1 DIS: 03/25/2022 SPEC #: [id number] RECD: 03/19/22 13:27 STATUS: DARINEL REQ #: [id number] COLLEEN: 03/19/22 12:[address]: Zaire Mejia DEPT: SURGICAL PATHOLOGY RECD BY: Barb Zheng ENTERED: 03/22/22 11:45 SP TYPE: COLON BX OTHR DR: MD Dr. Shola Smith MD Dr. Farouk Belal, MD Dr. Nicholas F Kotsonis, MD [facility] Tissues: Sigmoid colon biopsy Procedures: Surgery Specimen Level IV Comments: @ Ordering doctor for SUIV edited from to @ by CORDELL at 03/22/22 1344 @ Submitting doctor edited from to @ by RGOOD at 03/22/22 1344 HEADER OPERATION: Colonoscopy with polypectomy (MAC) PRE-OP DIAGNOSIS: Acute GI bleeding TISSUE SUBMITTED: Sigmoid colon polyp MICROSCOPIC DIAGNOSIS Sigmoid colon polyp, polypectomy: Consistent with inflammatory polyp. See comment. MIA:oliva 03/23/2022 COMMENT Clinical correlation and appropriate follow up are necessary. MICROSCOPIC DESCRIPTION Slides are reviewed. GROSS DESCRIPTION Received in fixative is one container labeled with the patient's name and designated sigmoid colon polyp. The specimen consists of one irregular fragment of light mejia soft tissue that measures 0.3 x 0.3 x 0.1 cm. The specimen is totally submitted in one cassette. / MIA:oliva 03/22/2022 TC:5 CPT: 42245
[2022-03-19 13:06] LABS: Pathologist Review Reviewed
--- NOTE | 2022-03-19 13:14 | OP.COLON_ITS ---
Patient Name: Reji Salinas Procedure Date: 03/19/2022 12:27 PM Date of : 1960 Age: 61 Procedure: Colonoscopy Indications: Hematochezia Providers: Zaire Mejia DO Medicines: Monitored Anesthesia Care Patient Profile: Last Colonoscopy: none. The patient's first colonoscopy is today. Complications: No immediate complications. Procedure: Pre-Anesthesia Assessment: - Prior to the procedure, a History and Physical was performed, and patient medications and allergies were reviewed. The risks and benefits of the procedure and the sedation options and risks were discussed with the patient. All questions were answered and informed consent was obtained. Patient identification and proposed procedure were verified by the physician in the pre-procedure area. Mental Status Examination: alert and oriented. Airway Examination: normal oropharyngeal airway and neck mobility. Respiratory Examination: clear to auscultation. CV Examination: normal. Prophylactic Antibiotics: The patient does not require prophylactic antibiotics. Prior Anticoagulants: The patient has taken no previous anticoagulant or antiplatelet agents. After reviewing the risks and benefits, the patient was deemed in satisfactory condition to undergo the procedure. The anesthesia plan was to use moderate sedation / analgesia (conscious sedation). Immediately prior to administration of medications, the patient was re-assessed for adequacy to receive sedatives. The heart rate, respiratory rate, oxygen saturations, blood pressure, adequacy of pulmonary ventilation, and response to care were monitored throughout the procedure. The physical status of the patient was re-assessed after the procedure. After I obtained informed consent, the scope was passed under direct vision. Throughout the procedure, the patient's blood pressure, pulse, and oxygen saturations were monitored continuously. The pediatric colonoscope was introduced through the anus and advanced to the hepatic flexure. The colonoscopy was performed without difficulty. The patient tolerated the procedure well. The quality of the bowel preparation was unsatisfactory. Scope In: 12:45:59 PM Scope Out: 1:02:03 PM Total Procedure Duration Time 0 hours 16 minutes 4 seconds Findings: The perianal and digital rectal examinations were normal. A 5 mm polyp was found in the sigmoid colon. The polyp was sessile. The polyp was removed with a cold snare. Resection and retrieval were complete. Verification of patient identification for the specimen was done. Estimated blood loss was minimal. Copious quantities of semi-solid stool was found in the rectum, in the recto-sigmoid colon, in the sigmoid colon, in the descending colon, at the splenic flexure, in the transverse colon, at the hepatic flexure and in the ascending colon. Impression: - Preparation of the colon was unsatisfactory. - One 5 mm polyp in the sigmoid colon, removed with a cold snare. Resected and retrieved. - Stool in the rectum, in the recto-sigmoid colon, in the sigmoid colon, in the descending colon, at the splenic flexure, in the transverse colon, at the hepatic flexure and in the ascending colon. Recommendation: - [facility] care. - Clear liquid diet. - Continue present medications. - Repeat colonoscopy in 3 days because the bowel preparation was poor. Procedure Code(s): --- Professional --- 89230, 52, Colonoscopy, flexible; with removal of tumor(s), polyp(s), or other lesion(s) by snare technique CPT copyright 2017 [employer]. All rights reserved. The codes documented in this report are preliminary and upon furniture mover helper review may be revised to meet current compliance requirements. Zaire Mejia DO 03/19/2022 1:14:41 PM This report has been signed electronically. Number of Addenda: 1 Note Initiated On: 03/19/2022 12:27 PM Addendum Number: 1 Addendum Date: 06/02/2022 6:11:48 AM MAC was used as sedation for this procedure. Zaire Mejia DO 06/02/2022 6:11:56 AM This report has been signed electronically.
--- NOTE | 2022-03-19 13:15 | OP.CCLET_ITS ---
06/02/2022 [facility] Re : Colon[facility] This procedure was performed on Saturday, March 19, 2022. My impressions and recommendations are as follows: Impressions : - Preparation of the colon was unsatisfactory. - One 5 mm polyp in the sigmoid colon, removed with a cold snare. Resected and retrieved. - Stool in the rectum, in the recto-sigmoid colon, in the sigmoid colon, in the descending colon, at the splenic flexure, in the transverse colon, at the hepatic flexure and in the ascending colon. Recommendations : - [facility] to [facility] for [facility] care. - Clear liquid diet. - Continue present medications. - Repeat colonoscopy in 3 days because the bowel preparation was poor. My findings are described in the full procedure note, which is enclosed. If I can be of further assistance, please feel free to contact me at . Sincerely, Zaire Mejia, 03/19/2022 1:14:41 PM This report has been signed electronically.
[2022-03-19] MEDS: Albuterol 2.5 MG/3 ML VIAL.NEB. INHALATION (13:37)
[2022-03-19] MEDS: Furosemide 20 MG/2 ML VIAL IV ×2 (14:11→22:21)
[2022-03-19 15:21] LABS: Allen Test Positive; Base Excess 8 mmol/L (-2 to +2); Bicarbonate 33.1 mmol/L (22-26); Blood Gas Specimen Type ART; O2 Delivery Device NRB; PO2 47 mmHG (75-100); SITE L Brach; SO2 80 % (95-99); Total Carbon Dioxide 35 mmol/L; pCO2 57.4 mmHg (35-45); pH 7.37 (7.35-7.45)
[2022-03-19 16:29] LABS: Hematocrit 27.4 % (40-54); Hemoglobin 8.6 g/dL (13.0-16.5)
[2022-03-19] MEDS: TADALAFIL 20 MG TABLET 40 MG PO (16:32)
--- NOTE | 2022-03-19 17:47 | PCM.PN.BLA ---
Progress Note After his colonoscopy as notified by PACU that he was significantly hypoxic. He is normally on 4 to 6 L nasal cannula however in recovery he was 15 L on nonrebreather satting in the 80s. He did have an episode of emesis however they did not suspect any aspiration and his lungs were clear. Given his Eisenmenger syndrome from his VSD I did ask for a dose of Lasix to be given but he only had 1 urine output of about 250 cc, so I asked for an ABG which demonstrated hypoxia with a PO2 of 47, and a PCO2 of 57.4. His oxygen sat on the ABG was also 80%. I ordered BiPAP and Ativan to help because his says that occasionally has anxiety with BiPAP however he refused the BiPAP. I also asked for a Strange to be able to have better I&Os however he refused this as well. I questioned him again as to whether or not he would like to be intubated and he once again said that he is a DNR CCA with no intubation. He also stated that he is a can likely refuse any further Lasix. I did order another transfusion as he had a hemoglobin of 7.7 this morning. He did consent to having a cardiology consult/spoke with cardiology directly and notified them of the consult. Currently will place him on Airvo and see if we can get his oxygenation any better. I discussed with him and his about how serious his his current status is and that if he does not allow us to do many of these interventions that he has a high likelihood of . He expressed understanding of this and still refuses many of these interventions. Had a 20-minute advance care planning discussion. Procedures Hospitalists Procedures: 23074 Advncd Care Plan 30 Min
--- NOTE | 2022-03-19 18:00 | RAD_ITS ---
INDICATION: High O2 requirement EXAMINATION/TECHNIQUE: X-RAY - XR Chest 1 View COMPARISON: 03/19/2022. FINDINGS: Worsening infiltrates in the left lower lung. The cardiomediastinal silhouette is stable. No pleural effusion or pneumothorax. The osseous structures are unchanged. RAD/Chest 1 View (Portable) IMPRESSION: Worsening infiltrates in the left lower lung. No other changes. Electronically Signed: Randy Avendano MD at 20:15 EDT ,
--- NOTE | 2022-03-19 18:02 | CON.PCM.CA_ITS ---
Assessment & Plan Assessment/Plan (1) Symptomatic anemia: (2) COPD (chronic obstructive pulmonary disease): QUALIFIERS: COPD type: unspecified COPD Qualified Code(s): J44.9 - Chronic obstructive pulmonary disease, unspecified (3) Chronic hypoxemic respiratory failure: (4) Right-sided congestive heart failure: (5) Ventricular septal defect (VSD): (6) Eisenmenger complex: PLAN: This 61-year-old patient with history of VSD and Eisenmenger syndrome On last echocardiogram he had severe pulm hypertension with systolic pulm artery pressure of 94 mmHg Severe tricuspid regurgitation and evidence of right-sided heart failure This admission patient has more symptoms of shortness of breath with anemia requiring a blood transfusion. He has been seen and followed at the [facility] and has been on medical treatment for pulm hypertension. His cardiac work-up with left and right heart catheterization has been done here by Dr. Ferrari in 2016 and had been sent over to [facility]. Cardiovascular care on recommendation 1. This patient with a [id number] shunt with VSD and Eisenmenger syndrome sinus this point to be a conservative treatment there is no any invasive intervention due to reversal of the shunt. 2. Right-sided heart failure secondary to severe pulm hypertension and Eisenmenger syndrome. Patient has been on tadalafil for pulm hypertension. And he received blood transfusion for the anemia. Conservative treatment with diuretic furosemide, continue iron therapy with ferrous sulfate, monitor electrolytes CBC. 3. Would recommend a conservative treatment. 4. Also I discussed a plan of transfer to [facility]/tertiary center for management of complex cardiac history with VSD and Eisenmenger syndrome. Patient had episode of hypoxia refusing BiPAP With tricuspid regurgitation and clinical evidence of right-sided heart failure. 5. Patient status is DNR?CCA and patient has been refusing BiPAP and IV diuretic. High risk patient with guarded prognosis Will continue to monitor and follow-up clinically HPI Consult Data Date of Consult: 03/19/22 HPI Narrative Reason for Consultation: Patient with VSD and Eisenmenger syndrome HPI Narrative: CORNELIO MILLER, is a 61 M who presents [facility] Medical History Acute CHF (congestive heart failure) Allergic rhinitis Cardiomegaly Chronic hypoxemic respiratory failure Chronic pain disorder Chronic sinusitis Congestive heart failure (CHF) COPD (chronic obstructive pulmonary disease) PAYTON (dyspnea on exertion) Former smoker Inguinal hernia Localized edema Noncompliance Nonrheumatic tricuspid valve regurgitation Obesity JERICA (obstructive sleep apnea) Pulmonary hypertension Pulmonary regurgitation Right ventricular dilation Right-sided congestive heart failure Sleep apnea Suspected sleep apnea Tobacco dependence Ventricular septal defect (VSD) Home Medications morphine (PF) 50 mg/50 mL (1 mg/mL) intravenous INFORMATION RESOURCES DIRECTOR syringe 6.5 mg SQ DAILY 01/20/16 [History Last Taken Unknown] ambrisentan 10 mg tablet (Letairis) 10 mg PO QDAY #90 tabs 06/12/20 [Rx Last Taken 02/10/21] albuterol sulfate 2.5 mg/3 mL (0.083 %) solution for nebulization 2.5 mg (3 mL) inhalation Q4H PRN Dyspnea/Wheezing/Sob #180 mL 06/10/21 [Rx Last Taken Unknown] albuterol sulfate 90 mcg/actuation aerosol inhaler (Ventolin HFA) 2 puff inhalat ion Q4H PRN shortness of breath or wheezing #18 grams 06/10/21 [Rx Last Taken Unknown] glycopyrrolate 9 mcg-formoterol 4.8 mcg HFA aerosol inhaler (Bevespi Aerosphere) 2 puff inhalation QAM AND QPM #1 inh 11/03/21 [Rx Last Taken Unknown] aspirin 81 mg tablet,delayed release (Adult Aspirin Regimen) 81 mg PO Q OTHER DAY 03/03/22 [History Last Taken Unknown] ferrous sulfate 325 mg (65 mg iron) tablet 325 mg PO DAILY 03/03/22 [History Last Taken Unknown] oxycodone-acetaminophen 5 mg-325 mg tablet 1 tab PO TID PRN Pain 03/03/22 [History Last Taken Unknown] potassium chloride 10 mEq tablet,extended release 10 meq PO DAILY 03/03/22 [History Last Taken Unknown] tadalafil (pulm. hypertension) 20 mg tablet (pulmonary hypertension) 40 mg PO DAILY pulmonary htn 03/19/22 [History Last Taken Unknown] Allergy/AdvReac Type Severity Reaction Status Date / Time warfarin [From Coumadin] AdvReac Severe Other - Verified 03/18/22 09:25 parodoxical low INR,myalgia and weakness Family History Brother Heart disease Mother Malignant tumor of pancreas Father Malignant neoplasm of lung Surgical History Below knee amputation status History of left below knee amputation History of right and left heart catheterization (01/27/16) History of right heart catheterization (04/16/19) morphine pump placement Social History Smoking Status: Current every day smoker tobacco type: cigarettes second hand exposure: No alcohol intake: never substance use type: does not use caffeine: Yes Type: coffee Number of servings: 2 Physical Exam Narrative Patient seen at bedside along with the nursing staff Short of breath With sinus tachycardia Cardiovascular exam pansystolic murmur with loud S2 Chest exam he has bilateral expiratory wheeze Patient has a left below-knee amputation Risk Stratification Risk Stratification Applicable: No Objective Data Vital Signs: Vital Signs Temp Pulse Resp BP Pulse Ox O2 Del Method O2 Flow Rate 98.9 F 128 H 24 H 90/41 L 82 Airvo 15 03/19/22 17:37 03/19/22 17:37 03/19/22 17:37 03/19/22 17:37 03/19/22 17:37 03/19/22 17:37 03/19/22 15:58 FiO2 83 03/19/22 16:49 Oxygen Flow Rate (L/min) 15 Oxygen Delivery Method Airvo Weight: 225 lb 8.526 oz Body Mass Index (BMI) 32.3 Intake & Output: Intake and Output for Last 24 Hours 03/17/22 03/18/22 03/19/22 23:59 23:59 23:59 Intake Total 2920 / 2920 610 / 610 Output Total 500 / 500 Balance 2920 / 2920 110 / 110 Lab / Micro Data Result Diagrams: 03/19/22 16:06 03/19/22 04:16 Labs: Laboratory Results - last 24 hr 03/18/22 09:45: Diff Path Review Reviewed 03/18/22 09:45: Crossmatch See Detail 03/18/22 09:45: Crossmatch See Detail 03/18/22 09:45: Crossmatch See Detail 03/18/22 19:50: Hgb 6.8 L, Hct 22.0 L 03/19/22 04:16: WBC 9.4, RBC 2.87 L, Hgb 7.7 L, Hct 24.9 L, MCV 86.8, MCH 26.8 L , MCHC 30.9 L, RDW Std Deviation 44.3 H, RDW Coeff of Reece 14.0, Plt Count 143 L, MPV 9.2, Immature Gran % (Auto) 0.700, Neut % (Auto) 87.8 H, Lymph % (Auto) 5.5 L, Claiborne % (Auto) 5.8, Eos % (Auto) 0.1, Baso % (Auto) 0.1, Absolute Neuts (auto) 8.2 H, Absolute Lymphs (auto) 0.52 L, Nucleated RBC % 0, Differential Comment SCANNED 03/19/22 04:16: Sodium 137, Potassium 3.8, Chloride 101, Carbon Dioxide 32.0, Anion Gap 4 L, BUN 20 H, Creatinine 0.75, Estim Creat Clear Calc 106.80, Est GFR (MDRD) Af Amer 135, Est GFR (MDRD) Non-Af 112, BUN/Creatinine Ratio 26.6 H, Glucose 137 H, Calcium 8.7 03/19/22 04:16: Hgb Cancelled 03/19/22 04:16: Magnesium 2.6 03/19/22 16:06: Hgb 8.6 L, Hct 27.4 L ABG Data ABG results: ABG 03/19/22 15:15 Specimen Type ART Sample Site L Brach pH 7.37 Bicarbonate Actual 33.1 H Total CO2 35 Base Excess 8 H O2 Saturation 80 L ABG pCO2 57.4 H ABG pO2 47 L Suresh Test Positive O2 Delivery Device NRB Liter Flow 15.0 Rhythm Strip Rhythm Strip: Sinus Rhythm Rate: 88 Ectopy: None Cardiology Labs/Tests 03/18/22 19:50: Hgb 6.8 L, Hct 22.0 L 03/19/22 04:16: WBC 9.4, RBC 2.87 L, Hgb 7.7 L, Hct 24.9 L, MCV 86.8, MCH 26.8 L , MCHC 30.9 L, Plt Count 143 L, MPV 9.2, Immature Gran % (Auto) 0.700, Neut % (Auto) 87.8 H, Lymph % (Auto) 5.5 L, Claiborne % (Auto) 5.8, Eos % (Auto) 0.1, Baso % (Auto) 0.1, Absolute Neuts (auto) 8.2 H, Nucleated RBC % 0 03/19/22 04:16: Sodium 137, Potassium 3.8, Chloride 101, Carbon Dioxide 32.0, Anion Gap 4 L, BUN 20 H, Creatinine 0.75, Est GFR (MDRD) Af Amer 135, Est GFR (MDRD) Non-Af 112, BUN/Creatinine Ratio 26.6 H, Glucose 137 H, Calcium 8.7 03/19/22 04:16: Hgb Cancelled 03/19/22 04:16: Magnesium 2.6 03/19/22 15:15: pH 7.37, Bicarbonate Actual 33.1 H, Base Excess 8 H, O2 Saturation 80 L, ABG pCO2 57.4 H, ABG pO2 47 L, Suresh Test Positive 03/19/22 16:06: Hgb 8.6 L, Hct 27.4 L Rhythm: Sinus tachycardia EKG: Incomplete right bundle branch block, normal sinus, ST-T change with evidence of right axis deviation Radiography Diagnostic Testing: Radiology Impression Chest X-Ray 03/19/22 07:00 IMPRESSION: Cardiomegaly. Enlargement of the bilateral pulmonary arteries. Progressive atelectasis and/or infiltrates at the lung bases worse at the left lung base. Electronically Signed: Silvestre Alvarado MD at 10:47 EDT ,
[2022-03-19] MEDS: Metoprolol Tartrate 25 MG Tablet PO (18:28)
[2022-03-19] MEDS: Ipratropium/Albuterol Sulfate 3 ML AMPUL.NEB INHALATION (18:44)
--- NOTE | 2022-03-19 19:21 | NURSING ---
This RN educated pt on the use of Bi-pap with low oxygen levels, and pt refused to wear it. Pt agreeable to nonrebreather and Airvo. is aware, and continually monitoring oxygen saturation.
--- NOTE | 2022-03-19 20:05 | NURSING ---
This RN discussed with pt concerns regarding vitals, including O2 sat's in low 60's, heart rate elevated and bp low. Educated pt on possibility of pt demise if continues to refuse bipap and other possible interventions. This RN asked if pt understood the repercussions of his decision and pt verbalized that he did. This RN asked pt if he was interested in a hospice consult and he stated that we'll just see what happens overnight.
[2022-03-19 20:48] LABS: Hematocrit 27.4 % (40-54); Hemoglobin 8.7 g/dL (13.0-16.5)
[2022-03-19] MEDS: Magnesium Hydroxide 30 ML UDC PO (22:22)
[2022-03-20] VITALS (41 sets, daily range): BP systolic 40–109; BP diastolic 20–65; PULSE 69–111; RESP 16–22; TEMP 36.3–37.1; O2SAT 80–100
[2022-03-20] MEDS: 0.9% Saline Lock 10 ML Syringe IV ×2 (01:06→17:38)
[2022-03-20 01:19] LABS: Hematocrit 24.4 % (40-54); Hemoglobin 7.5 g/dL (13.0-16.5)
[2022-03-20 03:23] LABS: Absolute Lymphocyte Count 0.57 X10^3/uL (0.83-4.51); Absolute Neutrophil Count 6.7 X10^3/uL (2.0-7.7); Basophil# 0.02 X10^3/uL; Basophil% 0.3 % (0-1); Eosinophil# 0.01 X10^3/uL; Eosinophils% 0.1 % (0-5); Hematocrit 24.4 % (40-54); Hemoglobin 7.5 g/dL (13.0-16.5); Lymphocyte # 0.57 X10^3/ul (0.83-4.51); Lymphocyte % 7.3 % (19-41); Mean Corp Hgb Conc 30.7 g/dL (32-36); Mean Corpuscular Hgb 26.6 pg (27.0-32.0); Mean Corpuscular Volume 86.5 fL (80-94); Mean Platelet Vol. 10.3 fl (6.2-12.0); Monocyte# 0.48 X10^3/uL; Monocyte% 6.2 % (0-10); NRBC Flagged by Analyzer 0 % (0-5); POSITIVE DIFFERENTIAL YES; POSITIVE MORPHOLOGY YES; Platelet Count 128 K/mm3 (150-450); RBC Distribution Width CV 14.2 % (11.6-14.6); RBC Distribution Width SD 44.4 fl (35.1-43.9); Red Blood Count 2.82 M/mm3 (4.6-6.2); White Blood Count 7.8 K/mm3 (4.4-11.0)
[2022-03-20 03:32] LABS: Differential Indicated SCAN CRITERIA MET
[2022-03-20 03:55] LABS: Anion Gap 4 (5-15); BUN 30 mg/dL (7-18); BUN/Creat Ratio 20.1 RATIO (10-20); Calcium,Total 7.9 mg/dL (8.5-10.1); Chloride 100 mmol/L (98-107); Creatinine, Serum 1.49 mg/dL (0.70-1.30); EST Glomerular Filtration Rate 51 mL/min (>60); Est Glom Filt Rate - Afr Amer 62 mL/min (>60); Estimated Creatinine Clearance 53.76 ml/min; Glucose 131 mg/dL (74-106); Sodium Level 137 mmol/L (136-145)
[2022-03-20 03:58] LABS: Differential Comment SCANNED
[2022-03-20] MEDS: Morphine 2 MG/ML Syringe IV (05:28)
--- NOTE | 2022-03-20 05:44 | PCM.PN.BLA ---
Progress Note Central Venous Catheter Indication: Hypotension Consent was obtained from: Patient. Unsuccessful attempt in placing R IJ. Will get a chest x-ray to rule out pneumonothorax.
--- NOTE | 2022-03-20 06:00 | RAD_ITS ---
INDICATION: Rule out pneumothorax EXAMINATION/TECHNIQUE: X-RAY - XR Chest 1 View COMPARISON: 03/19/2022 FINDINGS: LINES/DEVICES: None. LUNGS: Bilateral hazy and patchy opacities, similar compared to the prior. No pneumothorax. MEDIASTINUM AND CARDIOVASCULAR STRUCTURES: Enlarged cardiomediastinal contours, similar compared to the prior. BONES AND SOFT TISSUES: Unremarkable. RAD/Chest 1 View (Portable) IMPRESSION: Bilateral airspace disease, similar compared to the prior. No pneumothorax. Electronically Signed: Prudencio Mccrary MD at 6:14 EDT ,
--- NOTE | 2022-03-20 07:06 | EX.PCM.CONCC ---
Assessment & Plan Assessment/Plan (1) Eisenmenger complex: (2) Acute GI bleeding: (3) Right-sided congestive heart failure: (4) Acute and chronic respiratory failure with hypoxia: (5) COPD (chronic obstructive pulmonary disease): PLAN: Plan RECOMMENDATIONS: 1. Place PICC line for pressor administration 2. Transfuse to keep hemoglobin greater than 8 3. Wean supplemental oxygen as tolerated 4. Continue pulmonary hypertension medications 5. Await discussion with family about goals of therapy 6. Okay to allow for clear liquids 7. Transfer to tertiary center for [place] management if he wishes to be aggressive IMPRESSIONS: 1. Acute on chronic hypoxic respiratory failure secondary to cor pulmonale/Eisenmenger syndrome Patient with significant hypoxic respiratory failure following GI bleed. Clinical suspicion is GI bleed has led to decompensated cor pulmonale and hypoxic respiratory failure. Given Eisenmenger syndrome, it is unclear if patient needs volume or diuresis. Continuous right heart catheterization would be required for ultimate determination and to guide clinical decision making. Patient is realistic of his mortality and wants to speak with his family before any transfer. We will continue with Airvo for now. Await response to fluid challenge to determine if Lasix or additional fluid is necessary given limitations discussed above. 2. Probable cardiogenic shock Clinical suspicion for cardiogenic shock secondary to cor pulmonale and right heart failure. Cardiology has been consulted. Given VSD, patient will likely require fluoroscopy to place a right heart catheterization. Defer to cardiology. Would recommend continuing antihypertensive medications as rebound hypertension would complicate clinical scenario significantly. 3. Acute GI bleed Patient with significant volume fluctuations over the last 4 to 5 days. This is severely complicating problems 1 and 2. Would recommend keeping hemoglobin greater than 8 at all times. Patient will be transfused. Repeat colonoscopy has been planned. 4. COPD/inguinal hernia/untreated JERICA/obesity/tobacco abuse Complicates care, management, recovery and prognosis. Patient refusing BiPAP therapy. As needed aerosols likely sufficient. TIME: 35 minutes critical care time spent addressing patient's acute on chronic respiratory failure, cardiogenic shock, GI bleed, review of all data and collaboration with care team. HPI Consult Data Date of Consult: 03/20/22 HPI Narrative Reason for Consultation: Shock HPI Narrative: CORNELIO MILLER is a 61 M, with past medical history listed below, who presented to [facility] on 03/18/2022 secondary to a GI bleed and orthostatic symptoms. Patient had reported that approximately 10 days ago he noted very dark stools for 2 to 3 days. Patient states this was subsequently followed by black stool and on presentation was having dark maroon stools. Patient had been taking aspirin secondary to headache, but was not on anticoagulation at the time. Patient denied any history of previous GI bleeding or bleeding from his gums. No hematuria was reported. Patient does have a large ventral hernia. Patient also has a VSD with resultant Eisenmenger syndrome as diagnosed by the [facility]. In the ER, patient was afebrile and normotensive at 111/63. Patient was requiring 5 L nasal cannula to maintain saturations. Laboratory work-up showed a white blood cell count of 4.8, hemoglobin of 5.6 and platelets of 160. EKG was relatively unremarkable. Patient was subsequently taken for EGD. There was some lesions noted, but no obvious bleeding. Patient was then admitted to the hospital for further evaluation. Following colonoscopy yesterday, patient became more hypotensive and hypoxic. Patient was subsequently transferred to the intensive care unit for further evaluation. Since being in the intensive care unit, patient has refused a Strange catheter and a BiPAP. Patient was placed on pressor therapy through a peripheral line. Attempts by the hospitalist for a central line were unsuccessful. I was asked to see the patient to get a line. On my evaluation of the patient, patient is on Airvo with mild conversational dyspnea. Patient overall feels subjectively improved compared to previous. Patient's only complaint was being thirsty. Patient felt that his bowels felt better compared to previous. Patient was not reporting any dyspnea, but did have respiratory rates in the upper 20s. Patient states that he has had bad experiences with BiPAP up at the [facility] and would not be using it here. Patient is very clear that he does not want to have CPR or intubation. Patient states he is willing to have a central line, but wants it in his arm. Patient is not opposed to palliative measures if conservative therapy is not successful, but wants an opportunity to speak with his sons and before changing CODE STATUS. Review of systems otherwise negative from a constitutional, HEENT, respiratory, cardiovascular, GI, genitourinary, musculoskeletal, skin, neurologic, psychiatric and hematologic system unless stated above. [facility] Medical History Acute CHF (congestive heart failure) Allergic rhinitis Cardiomegaly Chronic hypoxemic respiratory failure Chronic pain disorder Chronic sinusitis Congestive heart failure (CHF) COPD (chronic obstructive pulmonary disease) PAYTON (dyspnea on exertion) Former smoker Inguinal hernia Localized edema Noncompliance Nonrheumatic tricuspid valve regurgitation Obesity JERCIA (obstructive sleep apnea) Pulmonary hypertension Pulmonary regurgitation Right ventricular dilation Right-sided congestive heart failure Sleep apnea Suspected sleep apnea Tobacco dependence Ventricular septal defect (VSD) Home Medications morphine (PF) 50 mg/50 mL (1 mg/mL) intravenous BARREL STAVE [employer]OR syringe 6.5 mg SQ DAILY 01/20/16 [History Last Taken Unknown] ambrisentan 10 mg tablet (Letairis) 10 mg PO QDAY #90 tabs 06/12/20 [Rx Last Taken 02/10/21] albuterol sulfate 2.5 mg/3 mL (0.083 %) solution for nebulization 2.5 mg (3 mL) inhalation Q4H PRN Dyspnea/Wheezing/Sob #180 mL 06/10/21 [Rx Last Taken Unknown] albuterol sulfate 90 mcg/actuation aerosol inhaler (Ventolin HFA) 2 puff inhalation Q4H PRN shortness of breath or wheezing #18 grams 06/10/21 [Rx Last Taken Unknown] glycopyrrolate 9 mcg-formoterol 4.8 mcg HFA aerosol inhaler (Bevespi Aerosphere) 2 puff inhalation QAM AND QPM #1 inh 11/03/21 [Rx Last Taken Unknown] aspirin 81 mg tablet,delayed release (Adult Aspirin Regimen) 81 mg PO Q OTHER DAY 03/03/22 [History Last Taken Unknown] ferrous sulfate 325 mg (65 mg iron) tablet 325 mg PO DAILY 03/03/22 [History Last Taken Unknown] oxycodone-acetaminophen 5 mg-325 mg tablet 1 tab PO TID PRN Pain 03/03/22 [History Last Taken Unknown] potassium chloride 10 mEq tablet,extended release 10 meq PO DAILY 03/03/22 [History Last Taken Unknown] tadalafil (pulm. hypertension) 20 mg tablet (pulmonary hypertension) 40 mg PO DAILY pulmonary htn 03/19/22 [History Last Taken Unknown] Allergy/AdvReac Type Severity Reaction Status Date / Time warfarin [From Coumadin] AdvReac Severe Other - Verified 03/18/22 09:25 parodoxical low INR,myalgia and weakness Family History Brother Heart disease Mother Malignant tumor of pancreas Father Malignant neoplasm of lung Surgical History Below knee amputation status History of left below knee amputation History of right and left heart catheterization (01/27/16) History of right heart catheterization (04/16/19) morphine pump placement Social History Smoking Status: Current every day smoker tobacco type: cigarettes second hand exposure: No alcohol intake: never substance use type: does not use caffeine: Yes Type: coffee Number of servings: 2 ROS ROS Narrative See HPI Medical Records Data Attestation: I reviewed the patient's medical records Medical records narrative: Multiple hospital records have been reviewed. Patient has been seen by Dr. Brand in the past. Patient has a severe obstructive ventilatory defect on his PFTs. Patient has been on Latera's, tadalafil and Lasix for pulmonary hypertension specialist at [facility]. Patient has been resistant to treating his obstructive sleep apnea. Walking oximetry completed in December 2020 showed 4 L at rest and 8 L with exertion, but was able to travel 944 feet. Lab / Micro Data Attestation: I reviewed the patient's lab results. Result Diagrams: 03/20/22 03:14 03/20/22 03:14 Labs: Laboratory Results - last 24 hr 03/18/22 09:45: Diff Path Review Reviewed 03/18/22 09:45: Crossmatch See Detail 03/19/22 16:06: Hgb 8.6 L, Hct 27.4 L 03/19/22 20:20: Hgb 8.7 L, Hct 27.4 L 03/20/22 01:00: Hgb 7.5 L, Hct 24.4 L 03/20/22 03:14: WBC 7.8, RBC 2.82 L, Hgb 7.5 L, Hct 24.4 L, MCV 86.5, MCH 26.6 L, MCHC 30.7 L, RDW Std Deviation 44.4 H, RDW Coeff of Reece 14.2, Plt Count 128 L, MPV 10.3, Immature Gran % (Auto) 0.100, Neut % (Auto) 86.0 H, Lymph % (Auto) 7.3 L, [place] % (Auto) 6.2, Eos % (Auto) 0.1, Baso % (Auto) 0.3, Absolute Neuts (auto) 6.7, Absolute Lymphs (auto) 0.57 L, Nucleated RBC % 0, Differential Comment SCANNED 03/20/22 03:14: Sodium 137, Potassium 4.0, Chloride 100, Carbon Dioxide 33.0 H, Anion Gap 4 L, BUN 30 H, Creatinine 1.49 H, Estim Creat Clear Calc 53.76, Est GFR (MDRD) Af Amer 62, Est GFR (MDRD) Non-Af 51 L, BUN/Creatinine Ratio 20.1 H, Glucose 131 H, Calcium 7.9 L ABG Data ABG results: ABG 03/19/22 15:15 Specimen Type ART Sample Site L Brach pH 7.37 Bicarbonate Actual 33.1 H Total CO2 35 Base Excess 8 H O2 Saturation 80 L ABG pCO2 57.4 H ABG pO2 47 L Suresh Test Positive O2 Delivery Device NRB Liter Flow 15.0 Attestation: I personally reviewed and interpreted this ABG as follows: (Partially compensated respiratory acidosis with increased AA gradient) Rhythm Strip Rhythm Strip: Sinus Rhythm Rate: 93 Ectopy: None Radiology Impression Chest X-Ray 03/19/22 07:00 IMPRESSION: Cardiomegaly. Enlargement of the bilateral pulmonary arteries. Progressive atelectasis and/or infiltrates at the lung bases worse at the left lung base. Electronically Signed: Silvestre Alvarado MD at 10:47 EDT , Chest X-Ray 03/19/22 18:00 IMPRESSION: Worsening infiltrates in the left lower lung. No other changes. Electronically Signed: Randy Avendano MD at 20:15 EDT , Chest X-Ray 03/20/22 06:00 IMPRESSION: Bilateral airspace disease, similar compared to the prior. No pneumothorax. Electronically Signed: Prudencio Mccrary MD at 6:14 EDT , Charges/Coding Procedures Hospitalists Procedures: 37203 Critial Care 1st Hr
[2022-03-20] MEDS: Ipratropium/Albuterol Sulfate 3 ML AMPUL.NEB INHALATION (07:26)
--- NOTE | 2022-03-20 08:08 | PCM.PN.HOSP ---
Subjective Subjective Hypotensive overnight, transferred to the ICU and started on Levophed. Central line was attempted 3 times unsuccessfully and he refused to have another central line placed so we will try for a PICC. Will hold off on any more diuresis as he feels very dry and his kidney function is doubled. Objective Data Objective Data Vital Signs: Vital Signs Temp Pulse Resp BP Pulse Ox O2 Del Method O2 Flow Rate 97.8 F 93 20 H 103/51 L 90 Airvo 60 03/20/22 07:08 03/20/22 07:08 03/20/22 07:08 03/20/22 07:08 03/20/22 07:08 03/20/22 07:08 03/20/22 07:08 FiO2 93 03/20/22 07:08 Oxygen Flow Rate (L/min) 60 Oxygen Delivery Method Airvo Weight: 249 lb 9.012 oz Body Mass Index (BMI) 32.3 Intake & Output: Intake and Output for Last 24 Hours 03/19/22 03/20/22 03/21/22 03:59 03:59 03:59 Intake Total 3320 / 3320 1687.35 / 1690.48 89.53 / 89.53 Output Total 925 / 925 Balance 3320 / 3320 762.35 / 765.48 89.53 / 89.53 Lab / Micro Data Result Diagrams: 03/20/22 03:14 03/20/22 03:14 Labs: Laboratory Results - last 24 hr 03/18/22 09:45: Diff Path Review Reviewed 03/18/22 09:45: Crossmatch See Detail 03/19/22 16:06: Hgb 8.6 L, Hct 27.4 L 03/19/22 20:20: Hgb 8.7 L, Hct 27.4 L 03/20/22 01:00: Hgb 7.5 L, Hct 24.4 L 03/20/22 03:14: WBC 7.8, RBC 2.82 L, Hgb 7.5 L, Hct 24.4 L, MCV 86.5, MCH 26.6 L, MCHC 30.7 L, RDW Std Deviation 44.4 H, RDW Coeff of Reece 14.2, Plt Count 128 L, MPV 10.3, Immature Gran % (Auto) 0.100, Neut % (Auto) 86.0 H, Lymph % (Auto) 7.3 L, [place] % (Auto) 6.2, Eos % (Auto) 0.1, Baso % (Auto) 0.3, Absolute Neuts (auto) 6.7, Absolute Lymphs (auto) 0.57 L, Nucleated RBC % 0, Differential Comment SCANNED 03/20/22 03:14: Sodium 137, Potassium 4.0, Chloride 100, Carbon Dioxide 33.0 H, Anion Gap 4 L, BUN 30 H, Creatinine 1.49 H, Estim Creat Clear Calc 53.76, Est GFR (MDRD) Af Amer 62, Est GFR (MDRD) Non-Af 51 L, BUN/Creatinine Ratio 20.1 H, Glucose 131 H, Calcium 7.9 L Micro: Microbiology 03/18/22 09:47 Stool Stool Occult Blood (ANYI) - Final Occult Blood Positive ABG Data ABG results: ABG 03/19/22 15:15 Specimen Type ART Sample Site L Brach pH 7.37 Bicarbonate Actual 33.1 H Total CO2 35 Base Excess 8 H O2 Saturation 80 L ABG pCO2 57.4 H ABG pO2 47 L Suresh Test Positive O2 Delivery Device NRB Liter Flow 15.0 Radiography Diagnostic Testing: Radiology Impression Chest X-Ray 03/19/22 07:00 IMPRESSION: Cardiomegaly. Enlargement of the bilateral pulmonary arteries. Progressive atelectasis and/or infiltrates at the lung bases worse at the left lung base. Electronically Signed: Silvestre Alvarado MD at 10:47 EDT , Chest X-Ray 03/19/22 18:00 IMPRESSION: Worsening infiltrates in the left lower lung. No other changes. Electronically Signed: Randy Avendano MD at 20:15 EDT , Chest X-Ray 03/20/22 06:00 IMPRESSION: Bilateral airspace disease, similar compared to the prior. No pneumothorax. Electronically Signed: Prudencio Mccrary MD at 6:14 EDT , Rhythm Strip Rhythm Strip: Sinus Rhythm Rate: 93 Ectopy: None Physical Exam Narrative General: Alert, Oriented x3, Cooperative, No apparent distress HEENT: Atraumatic, PERRLA, EOMI, Normocephalic Oral: Moist Mucosa Neck: Supple, No JVD Lungs: Normal air movement, No rhonchi, No wheeze, Rales in his bases bilaterally Cardiovascular: Regular rate, Regular Rhythm, Normal S1, Normal S2, 4 out of 6 JABARI Abdomen: Soft, Non Tender, Non-Distended, No Hepato-splenomegaly, large left inguinal hernia nonreducible Extremities: Right lower extremity edema chronic, Capillary Refill Less than 3 Seconds, left BKA Skin: No rashes, No breakdown Musculoskeletal: No Tenderness to Palpation of Joints or Extremities Neurological: Cranial nerves II-XII grossly intact, Motor Exam 5/5 strength throughout, Sensory exam intact to light touch and pain Psych/Mental Status: Normal Affect, Appropriate Assessment & Plan Assessment/Plan (1) Acute GI bleeding: (2) Orthostatic hypotension: PLAN: Plan 1. Acute GI bleed with acute blood loss anemia ? In August of this year his hemoglobin was normal and now is down to 5.6 on admission. Currently 7.7 ? We will transfuse 2 units that were ordered in the ER and will have another 2 units on hold but he will likely be transfused ? Continue with his iron supplement but hold his antiplatelets ? He does have history of severe pulmonary hypertension secondary to a VSD and Eisenmenger's syndrome so may need to give Lasix between his blood ? Consult GI, EGD did not demonstrate an acute source of bleeding ? Colonoscopy was unremarkable poor prep 2.? Chronic hypoxic respiratory failure secondary to COPD and severe pulmonary hypertension/chronic VSD with Eisenmenger syndrome leading to cardiogenic shock -He has an RVSP on his most recent echo of 84 mmHg -Continue with albuterol ?She has had increased oxygen requirements it does appear that he may have been overly diuresed as his kidney function has doubled. He still has some anemia so he is being transfused but will hold off on any diuretics at this time and monitor his oxygenation as well as his blood pressure. ? Appreciate cardiology and ICU assistance ? Continue with pressor support -We will resume all of his home medications ? He is going to get an outpatient cardiac MRI DVT: SCDs Charges/Coding Visit Charges Inpatient E&M: 42914 Subs Hosp L2
--- NOTE | 2022-03-20 12:03 | PCM.PN.CARD ---
Subjective Subjective Seen at bedside Family at bedside and son Patient has hypotension last night and transferred to ICU and started on inotropic support with Levophed Objective Data Vital Signs: Vital Signs Temp Pulse Resp BP Pulse Ox O2 Del Method O2 Flow Rate 97.8 F 89 22 H 103/51 L 92 Airvo 60 03/20/22 07:08 03/20/22 07:26 03/20/22 07:26 03/20/22 07:08 03/20/22 07:26 03/20/22 07:08 03/20/22 07:08 FiO2 92 03/20/22 07:26 Oxygen Flow Rate (L/min) 60 Oxygen Delivery Method Airvo Weight: 249 lb 9.012 oz Body Mass Index (BMI) 32.3 Intake & Output: Intake and Output for Last 24 Hours 03/18/22 03/19/22 03/20/22 23:59 23:59 23:59 Intake Total 2920 / 2920 1360 / 1360 816.88 / 816.88 Output Total 925 / 925 Balance 2920 / 2920 435 / 435 816.88 / 816.88 Lab / Micro Data Result Diagrams: 03/20/22 03:14 03/20/22 03:14 Labs: Laboratory Results - last 24 hr 03/18/22 09:45: Diff Path Review Reviewed 03/18/22 09:45: Crossmatch See Detail 03/19/22 09:45: Crossmatch See Detail 03/19/22 16:06: Hgb 8.6 L, Hct 27.4 L 03/19/22 20:20: Hgb 8.7 L, Hct 27.4 L 03/20/22 01:00: Hgb 7.5 L, Hct 24.4 L 03/20/22 03:14: WBC 7.8, RBC 2.82 L, Hgb 7.5 L, Hct 24.4 L, MCV 86.5, MCH 26.6 L, MCHC 30.7 L, RDW Std Deviation 44.4 H, RDW Coeff of Reece 14.2, Plt Count 128 L, MPV 10.3, Immature Gran % (Auto) 0.100, Neut % (Auto) 86.0 H, Lymph % (Auto) 7.3 L, [place] % (Auto) 6.2, Eos % (Auto) 0.1, Baso % (Auto) 0.3, Absolute Neuts (auto) 6.7, Absolute Lymphs (auto) 0.57 L, Nucleated RBC % 0, Differential Comment SCANNED 03/20/22 03:14: Sodium 137, Potassium 4.0, Chloride 100, Carbon Dioxide 33.0 H, Anion Gap 4 L, BUN 30 H, Creatinine 1.49 H, Estim Creat Clear Calc 53.76, Est GFR (MDRD) Af Amer 62, Est GFR (MDRD) Non-Af 51 L, BUN/Creatinine Ratio 20.1 H, Glucose 131 H, Calcium 7.9 L ABG Data ABG results: ABG 03/19/22 15:15 Specimen Type ART Sample Site L Brach pH 7.37 Bicarbonate Actual 33.1 H Total CO2 35 Base Excess 8 H O2 Saturation 80 L ABG pCO2 57.4 H ABG pO2 47 L Suresh Test Positive O2 Delivery Device NRB Liter Flow 15.0 Rhythm Strip Rhythm Strip: Sinus Rhythm Rate: 93 Ectopy: None Cardiology Labs/Tests 03/19/22 15:15: pH 7.37, Bicarbonate Actual 33.1 H, Base Excess 8 H, O2 Saturation 80 L, ABG pCO2 57.4 H, ABG pO2 47 L, Suresh Test Positive 03/19/22 16:06: Hgb 8.6 L, Hct 27.4 L 03/19/22 20:20: Hgb 8.7 L, Hct 27.4 L 03/20/22 01:00: Hgb 7.5 L, Hct 24.4 L 03/20/22 03:14: WBC 7.8, RBC 2.82 L, Hgb 7.5 L, Hct 24.4 L, MCV 86.5, MCH 26.6 L, MCHC 30.7 L, Plt Count 128 L, MPV 10.3, Immature Gran % (Auto) 0.100, Neut % (Auto) 86.0 H, Lymph % (Auto) 7.3 L, [place] % (Auto) 6.2, Eos % (Auto) 0.1, Baso % (Auto) 0.3, Absolute Neuts (auto) 6.7, Nucleated RBC % 0 03/20/22 03:14: Sodium 137, Potassium 4.0, Chloride 100, Carbon Dioxide 33.0 H, Anion Gap 4 L, BUN 30 H, Creatinine 1.49 H, Est GFR (MDRD) Af Amer 62, Est GFR (MDRD) Non-Af 51 L, BUN/Creatinine Ratio 20.1 H, Glucose 131 H, Calcium 7.9 L Rhythm: EKG: ECHO: Stress Test: Cardiac Cath: PCI: CT Surgery: Holter monitor: EPS: PPM: CXR: Chest CT Scan: Radiography Diagnostic Testing: Radiology Impression Chest X-Ray 03/19/22 18:00 IMPRESSION: Worsening infiltrates in the left lower lung. No other changes. Electronically Signed: Randy Avendano MD at 20:15 EDT , Chest X-Ray 03/20/22 06:00 IMPRESSION: Bilateral airspace disease, similar compared to the prior. No pneumothorax. Electronically Signed: Prudencio Mccrary MD at 6:14 EDT , Physical Exam Narrative Sitting in the bed comfortable Symptoms shortness improving family law specialist showed underlying normal sinus rhythm Cardiovascular exam S1-S2 normal at holosystolic murmur No diastolic murmur Chest examination mild bilateral expiratory wheeze Left below-knee amputation Assessment & Plan Assessment/Plan (1) Orthostatic hypotension: (2) Acute and chronic respiratory failure with hypoxia: (3) COPD (chronic obstructive pulmonary disease): QUALIFIERS: COPD type: unspecified COPD Qualified Code(s): J44.9 - Chronic obstructive pulmonary disease, unspecified (4) Ventricular septal defect (VSD): (5) Eisenmenger complex: PLAN: Plan Patient with history of VSD and Eisenmenger syndrome Has anemia requiring blood transfusion Chronic hypoxic respiratory failure secondary to LBD and patient has severe pulm hypertension With VSD and Eisenmenger syndrome which has been treated conservatively and being followed at [facility]. Cardiac care plan recommendations; 1. I reviewed his current medication will continue current treatment, his cloth burler showed normal sinus and blood pressure is improving on the current treatment with inotropic support. IV diuretic has been on hold due to worsening of his renal function. 2. Once stable to follow-up as an outpatient with cardiac team at [facility]. For continuation of cardiac care for longstanding history of VSD/Eisenmenger syndrome and severe pulm hypertension.
[2022-03-20] MEDS: Ferrous Sulfate 325 MG Tablet PO (12:39)
[2022-03-20] MEDS: TADALAFIL 20 MG TABLET 40 MG PO (12:40)
[2022-03-20] MEDS: Magnesium Hydroxide 30 ML UDC PO ×2 (12:41→22:02)
[2022-03-20] MEDS: Bisacodyl 5 MG Tablet 20 MG PO (12:42)
[2022-03-20 14:28] LABS: Hematocrit 25.5 % (40-54)
[2022-03-20] MEDS: oxyCODONE 5 MG Tablet PO (20:04)
[2022-03-20] MEDS: LORazepam 2 MG/ML Syringe 0.5 MG IV (22:01)
[2022-03-20] MEDS: MELATONIN 3 MG TABLET PO (22:02)
[2022-03-21] VITALS (54 sets, daily range): BP systolic 76–128; BP diastolic 47–75; PULSE 67–124; RESP 14–24; TEMP 36.6–37; O2SAT 80–97
[2022-03-21] MEDS: Albuterol 2.5 MG/3 ML VIAL.NEB. INHALATION ×2 (05:23→15:33)
[2022-03-21] MEDS: Acetaminophen 325 MG Tablet 650 MG PO ×2 (05:29→13:04)
[2022-03-21] MEDS: oxyCODONE 5 MG Tablet PO ×2 (05:29→17:52)
[2022-03-21 06:11] LABS: Absolute Lymphocyte Count 0.61 X10^3/uL (0.83-4.51); Absolute Neutrophil Count 5.6 X10^3/uL (2.0-7.7); Basophil# 0.02 X10^3/uL; Basophil% 0.3 % (0-1); Eosinophil# 0.13 X10^3/uL; Eosinophils% 1.9 % (0-5); Hematocrit 24.1 % (40-54); Hemoglobin 7.4 g/dL (13.0-16.5); Lymphocyte # 0.61 X10^3/ul (0.83-4.51); Lymphocyte % 8.9 % (19-41); Mean Corp Hgb Conc 30.7 g/dL (32-36); Mean Corpuscular Hgb 27.3 pg (27.0-32.0); Mean Corpuscular Volume 88.9 fL (80-94); Mean Platelet Vol. 10.3 fl (6.2-12.0); Monocyte# 0.53 X10^3/uL; Monocyte% 7.7 % (0-10); NRBC Flagged by Analyzer 0 % (0-5); Neutrophil # 5.55 X10^3/uL (2.7-7.7); Neutrophil % 80.9 % (47-70); Platelet Count 149 K/mm3 (150-450); RBC Distribution Width CV 14.4 % (11.6-14.6); RBC Distribution Width SD 45.6 fl (35.1-43.9); Red Blood Count 2.71 M/mm3 (4.6-6.2); White Blood Count 6.9 K/mm3 (4.4-11.0)
[2022-03-21 06:33] LABS: Anion Gap 3 (5-15); BUN 25 mg/dL (7-18); BUN/Creat Ratio 31.7 RATIO (10-20); Calcium,Total 8.1 mg/dL (8.5-10.1); Chloride 99 mmol/L (98-107); Creatinine, Serum 0.79 mg/dL (0.70-1.30); EST Glomerular Filtration Rate 106 mL/min (>60); Est Glom Filt Rate - Afr Amer 129 mL/min (>60); Estimated Creatinine Clearance 101.39 ml/min; Glucose 130 mg/dL (74-106); Potassium 3.8 mmol/L (3.5-5.1); Sodium Level 136 mmol/L (136-145)
--- NOTE | 2022-03-21 06:47 | PN.CC_ITS ---
Assessment & Plan Assessment/Plan (1) Eisenmenger complex: (2) Acute GI bleeding: (3) Right-sided congestive heart failure: (4) Acute and chronic respiratory failure with hypoxia: (5) COPD (chronic obstructive pulmonary disease): PLAN: Plan RECOMMENDATIONS: 1. Continue Levophed for now 2. Transfuse to keep hemoglobin greater than 8 3. Wean supplemental oxygen as tolerated 4. Continue pulmonary hypertension medications 5. Await discussion with family about goals of therapy 6. Likely okay to liberalize diet given goals of therapy 7. Transfer to tertiary center for [place] management if he wishes to be aggressive IMPRESSIONS: 1. Acute on chronic hypoxic respiratory failure secondary to cor pulmonale/Eisenmenger syndrome Patient with significant hypoxic respiratory failure following GI bleed. Clinical suspicion is GI bleed has led to decompensated cor pulmonale and hypoxic respiratory failure. Given Eisenmenger syndrome, it is unclear if patient needs volume or diuresis. Continuous right heart catheterization would be required for ultimate determination and to guide clinical decision making. Patient is realistic of his mortality and wants to speak with his family before any transfer. We will continue with Airvo for now. Determination of fluid status and cardiac output is limited at this time. Patient is very clear that he does not want BiPAP, but appears to be comfortable on high Airvo. 2. Probable cardiogenic shock Clinical suspicion for cardiogenic shock secondary to cor pulmonale and right heart failure. Cardiology has been consulted. Given VSD, patient will likely require fluoroscopy to place a right heart catheterization. Defer to cardiology. Would recommend continuing pulmonary antihypertensive medications as rebound hypertension would complicate clinical scenario significantly. 3. Acute GI bleed Patient with significant volume fluctuations over the last 4 to 5 days. This is severely complicating problems 1 and 2. Would recommend keeping hemoglobin greater than 8 at all times. Patient will be transfused. Doubt repeat colonoscopy will be performed given goals of therapy, but defer to GI 4. COPD/inguinal hernia/untreated JERICA/obesity/tobacco abuse Complicates care, management, recovery and prognosis. Patient refusing BiPAP therapy. As needed aerosols likely sufficient. TIME: 32 minutes critical care time spent addressing patient's acute on chronic respiratory failure, cardiogenic shock, GI bleed, review of all data and collaboration with care team. Subjective Subjective Patient did okay overnight. Patient has had some hypoxia, but continues to refuse BiPAP. Patient states he did discuss with his family yesterday, but has another crew coming into the day. Patient anticipates going home with hospice tomorrow if possible. Patient does report shortness of breath with exertion. Patient reportedly had a liquid bowel movement overnight that was described as brown. Objective Data Objective Data Patient remains on Levophed at 10 mics to maintain appropriate blood pressures. Vital Signs: Vital Signs Temp Pulse Resp BP Pulse Ox O2 Del Method O2 Flow Rate 36.6 C 102 H 20 H 109/55 L 95 Airvo 60 03/21/22 00:00 03/21/22 05:25 03/21/22 05:25 03/21/22 05:00 03/21/22 05:00 03/21/22 05:00 03/21/22 04:00 FiO2 95 03/21/22 05:00 Oxygen Flow Rate (L/min) 60 Oxygen Delivery Method Airvo Weight: 113.2 kg Body Mass Index (BMI) 32.3 Intake & Output: Intake and Output for Last 24 Hours 03/19/22 03/20/22 03/21/22 23:59 23:59 23:59 Intake Total 1360 / 1360 2837.49 / 3056.29 312.8 / 312.8 Output Total 925 / 925 500 / 500 Balance 435 / 435 2337.49 / 2556.29 312.8 / 312.8 Lab / Micro Data Attestation: I reviewed the patient's lab results. Result Diagrams: 03/21/22 04:13 03/21/22 04:13 Labs: Laboratory Results - last 24 hr 03/18/22 09:45: Crossmatch See Detail 03/19/22 09:45: Crossmatch See Detail 03/20/22 14:20: Hgb 8.0 L, Hct 25.5 L 03/21/22 04:13: WBC 6.9, RBC 2.71 L, Hgb 7.4 L, Hct 24.1 L, MCV 88.9, MCH 27.3, MCHC 30.7 L, RDW Std Deviation 45.6 H, RDW Coeff of Reece 14.4, Plt Count 149 L, MPV 10.3, Immature Gran % (Auto) 0.300, Neut % (Auto) 80.9 H, Lymph % (Auto) 8.9 L, [place] % (Auto) 7.7, Eos % (Auto) 1.9, Baso % (Auto) 0.3, Absolute Neuts (auto) 5.6, Absolute Lymphs (auto) 0.61 L, Nucleated RBC % 0 03/21/22 04:13: Sodium 136, Potassium 3.8, Chloride 99, Carbon Dioxide 34.0 H, Anion Gap 3 L, BUN 25 H, Creatinine 0.79, Estim Creat Clear Calc 101.39, Est GFR (MDRD) Af Amer 129, Est GFR (MDRD) Non-Af 106, BUN/Creatinine Ratio 31.7 H, Glucose 130 H, Calcium 8.1 L Micro: Microbiology 03/18/22 09:47 Stool Stool Occult Blood (ANYI) - Final Occult Blood Positive Rhythm Strip Rhythm Strip: Sinus Tach Rate: 102 Ectopy: None Physical Exam Const alert and oriented x3 Constitutional Narrative: Mild conversational dyspnea General Appearance: cooperative HEENT normocephalic HEENT Narrative: Airvo in place General Ear: No hearing grossly impaired Eyes PERRL and EOMs intact bilaterally Neck full ROM and no lymphadenopathy Resp Auscultation: rales and diminished lung sounds; Negative for rhonchi or wheezes Cardio regular rhythm, S1 normal heart sound and S2 normal heart sound Rate: tachycardic Heart Sounds: murmur continuous III/ loud left sternal border GI GI Narrative: Large inguinal hernia noted. Obese. Extremity General Extremity: amputation and clubbing Skin Skin Narrative: Dermal atrophy Neuro oriented x3, CN's II-XII intact bilaterally, moves all extremities and no focal motor deficits Psych cooperative and affect normal Charges/Coding Procedures Hospitalists Procedures: 34557 Critial Care 1st Hr
--- NOTE | 2022-03-21 10:02 | PN.HOSP_ITS ---
Subjective Subjective Doing well today, he was able to come down on his Levophed a little bit. Hemoglobin is back down to 7.4 Objective Data Objective Data Vital Signs: Vital Signs Temp Pulse Resp BP Pulse Ox O2 Del Method O2 Flow Rate 97.8 F 82 17 93/55 L 92 Airvo 60 03/21/22 00:00 03/21/22 07:45 03/21/22 07:45 03/21/22 08:15 03/21/22 07:45 03/21/22 08:00 03/21/22 08:00 FiO2 93 03/21/22 08:00 Oxygen Flow Rate (L/min) 60 Oxygen Delivery Method Airvo Weight: 249 lb 9.012 oz Body Mass Index (BMI) 32.3 Intake & Output: Intake and Output for Last 24 Hours 03/20/22 03/21/22 03/22/22 03:59 03:59 03:59 Intake Total 1687.35 / 1690.48 2385.34 / 2404.14 96.76 / 96.76 Output Total 925 / 925 500 / 500 Balance 762.35 / 765.48 1885.34 / 1904.14 96.76 / 96.76 Lab / Micro Data Result Diagrams: 03/21/22 04:13 03/21/22 04:13 Labs: Laboratory Results - last 24 hr 03/18/22 09:45: Crossmatch See Detail 03/20/22 14:20: Hgb 8.0 L, Hct 25.5 L 03/21/22 04:13: WBC 6.9, RBC 2.71 L, Hgb 7.4 L, Hct 24.1 L, MCV 88.9, MCH 27.3, MCHC 30.7 L, RDW Std Deviation 45.6 H, RDW Coeff of Reece 14.4, Plt Count 149 L, MPV 10.3, Immature Gran % (Auto) 0.300, Neut % (Auto) 80.9 H, Lymph % (Auto) 8.9 L, [place] % (Auto) 7.7, Eos % (Auto) 1.9, Baso % (Auto) 0.3, Absolute Neuts (auto) 5.6, Absolute Lymphs (auto) 0.61 L, Nucleated RBC % 0 03/21/22 04:13: Sodium 136, Potassium 3.8, Chloride 99, Carbon Dioxide 34.0 H, Anion Gap 3 L, BUN 25 H, Creatinine 0.79, Estim Creat Clear Calc 101.39, Est GFR (MDRD) Af Amer 129, Est GFR (MDRD) Non-Af 106, BUN/Creatinine Ratio 31.7 H, Glucose 130 H, Calcium 8.1 L Micro: Microbiology 03/18/22 09:47 Stool Stool Occult Blood (ANYI) - Final Occult Blood Positive Rhythm Strip Rhythm Strip: Sinus Tach Rate: 102 Ectopy: None Physical Exam Narrative General: Alert, Oriented x3, Cooperative, No apparent distress HEENT: Atraumatic, PERRLA, EOMI, Normocephalic Oral: Moist Mucosa Neck: Supple, No JVD Lungs: Normal air movement, No rhonchi, No wheeze, Rales in his bases bilaterally Cardiovascular: Regular rate, Regular Rhythm, Normal S1, Normal S2, 4 out of 6 JABARI Abdomen: Soft, Non Tender, Non-Distended, No Hepato-splenomegaly, large left ing uinal hernia nonreducible Extremities: Right lower extremity edema chronic, Capillary Refill Less than 3 Seconds, left BKA Skin: No rashes, No breakdown Musculoskeletal: No Tenderness to Palpation of Joints or Extremities Neurological: Cranial nerves II-XII grossly intact, Motor Exam 5/5 strength th roughout, Sensory exam intact to light touch and pain Psych/Mental Status: Normal Affect, Appropriate Assessment & Plan Assessment/Plan (1) Acute GI bleeding: (2) Orthostatic hypotension: PLAN: Plan 1. Acute GI bleed with acute blood loss anemia ? In August of this year his hemoglobin was normal and now is down to 5.6 on admission. Currently 7.4 ? We will continue with transfusing another unit and recheck this afternoon. He does have another unit on hold after this 1 ? Continue with his iron supplement but hold his antiplatelets ? He does have history of severe pulmonary hypertension secondary to a VSD and Eisenmenger's syndrome so may need to give Lasix between his blood versus just allowing volume resuscitation at yesterday his creatinine was elevated, today it is normal ? Consult GI, EGD did not demonstrate an acute source of bleeding ? Colonoscopy was unremarkable poor prep 2.? Chronic hypoxic respiratory failure secondary to COPD and severe pulmonary hypertension/chronic VSD with Eisenmenger syndrome leading to cardiogenic shock -He has an RVSP on his most recent echo of 84 mmHg -Continue with albuterol ? Appreciate cardiology and ICU assistance ? Continue with pressor support and wean as able -We will resume all of his home medications ? He is going to get an outpatient cardiac MRI DVT: SCDs Charges/Coding Visit Charges Inpatient E&M: 79226 Subs Hosp L2
[2022-03-21] MEDS: Ferrous Sulfate 325 MG Tablet PO (11:02)
[2022-03-21] MEDS: TADALAFIL 20 MG TABLET 40 MG PO (11:02)
[2022-03-21] MEDS: Magnesium Hydroxide 30 ML UDC PO ×2 (11:03→21:19)
[2022-03-21] MEDS: 0.9% Saline Lock 10 ML Syringe IV ×2 (11:09→17:52)
--- NOTE | 2022-03-21 14:20 | PCM.PN.CARD ---
Subjective Subjective Seen and evaluated today at bedside and discussed with the nursing staff at bedside at time of evaluation Feeling better, still on Levophed with reduced dose Objective Data Vital Signs: Vital Signs Temp Pulse Resp BP Pulse Ox O2 Del Method O2 Flow Rate 98.6 F 77 20 H 102/59 L 91 Airvo 60 03/21/22 12:45 03/21/22 13:00 03/21/22 13:00 03/21/22 13:45 03/21/22 13:00 03/21/22 13:00 03/21/22 13:00 FiO2 93 03/21/22 13:00 Oxygen Flow Rate (L/min) 60 Oxygen Delivery Method Airvo Weight: 249 lb 9.012 oz Body Mass Index (BMI) 32.3 Intake & Output: Intake and Output for Last 24 Hours 03/19/22 03/20/22 03/21/22 23:59 23:59 23:59 Intake Total 1360 / 1360 2837.49 / 3056.29 1490.18 / 1490.18 Output Total 925 / 925 500 / 500 600 / 600 Balance 435 / 435 2337.49 / 2556.29 890.18 / 890.18 Lab / Micro Data Result Diagrams: 03/21/22 04:13 03/21/22 04:13 Labs: Laboratory Results - last 24 hr 03/18/22 09:45: Crossmatch See Detail 03/19/22 09:45: Crossmatch See Detail 03/20/22 14:20: Hgb 8.0 L, Hct 25.5 L 03/21/22 04:13: WBC 6.9, RBC 2.71 L, Hgb 7.4 L, Hct 24.1 L, MCV 88.9, MCH 27.3, MCHC 30.7 L, RDW Std Deviation 45.6 H, RDW Coeff of Reece 14.4, Plt Count 149 L, MPV 10.3, Immature Gran % (Auto) 0.300, Neut % (Auto) 80.9 H, Lymph % (Auto) 8.9 L, [place] % (Auto) 7.7, Eos % (Auto) 1.9, Baso % (Auto) 0.3, Absolute Neuts (auto) 5.6, Absolute Lymphs (auto) 0.61 L, Nucleated RBC % 0 03/21/22 04:13: Sodium 136, Potassium 3.8, Chloride 99, Carbon Dioxide 34.0 H, Anion Gap 3 L, BUN 25 H, Creatinine 0.79, Estim Creat Clear Calc 101.39, Est GFR (MDRD) Af Amer 129, Est GFR (MDRD) Non-Af 106, BUN/Creatinine Ratio 31.7 H, Glucose 130 H, Calcium 8.1 L Rhythm Strip Rhythm Strip: Sinus Tach Rate: 102 Ectopy: None Cardiology Labs/Tests 03/20/22 14:20: Hgb 8.0 L, Hct 25.5 L 03/21/22 04:13: WBC 6.9, RBC 2.71 L, Hgb 7.4 L, Hct 24.1 L, MCV 88.9, MCH 27.3, MCHC 30.7 L, Plt Count 149 L, MPV 10.3, Immature Gran % (Auto) 0.300, Neut % (Auto) 80.9 H, Lymph % (Auto) 8.9 L, [place] % (Auto) 7.7, Eos % (Auto) 1.9, Baso % (Auto) 0.3, Absolute Neuts (auto) 5.6, Nucleated RBC % 0 03/21/22 04:13: Sodium 136, Potassium 3.8, Chloride 99, Carbon Dioxide 34.0 H, Anion Gap 3 L, BUN 25 H, Creatinine 0.79, Est GFR (MDRD) Af Amer 129, Est GFR (MDRD) Non-Af 106, BUN/Creatinine Ratio 31.7 H, Glucose 130 H, Calcium 8.1 L Rhythm: EKG: ECHO: Stress Test: Cardiac Cath: PCI: CT Surgery: Holter monitor: EPS: PPM: CXR: Chest CT Scan: Physical Exam Narrative Patient alert orientated x3 ekg monitor tech showed underlying normal sinus Cardiovascular exam S1-S2 regular Had holosystolic murmur typical of VSD There is no diastolic murmur Chest examination clear to auscultation bilateral. Assessment & Plan Assessment/Plan (1) Ventricular septal defect (VSD): (2) Right-sided congestive heart failure: (3) Nonrheumatic tricuspid valve regurgitation: (4) Pulmonary regurgitation: (5) Eisenmenger complex: PLAN: Patient seen and evaluated today Still having symptoms of shortness of breath Blood pressure is proving on a low-dose Levophed Cardiac care plan recommendation 1. VSD with Eisenmenger syndrome With severe pulm hypertension, systolic pulmonary artery pressure 94 mmHg Not a candidate for VSD closure. Cardiac MRI can be set up as an outpatient. And has been seen and followed tertiary cardiac facility in [facility] On this admission patient has anemia requiring blood transfusion and hemoglobin today 7.4 due to severe pulm hypertension and right-sided heart failure Lasix will be given in between the blood transfusion units plan. 2. COPD with chronic hypoxic respiratory failure. 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 Castellon, will follow-up as an outpatient. Patient has outpatient appointment to follow-up with the insulation board calender operator at [facility]
[2022-03-21 19:37] LABS: Hematocrit 25.7 % (40-54); Hemoglobin 8.2 g/dL (13.0-16.5)
[2022-03-21] MEDS: MELATONIN 3 MG TABLET PO (21:19)
[2022-03-22] VITALS (31 sets, daily range): BP systolic 75–118; BP diastolic 41–66; PULSE 80–108; RESP 15–31; TEMP 36.6–37.7; O2SAT 86–97
--- NOTE | 2022-03-22 06:08 | PN.CC_ITS ---
Assessment & Plan Assessment/Plan (1) Acute and chronic respiratory failure with hypoxia: PLAN: Plan RECOMMENDATIONS: 1. Continue heated high flow oxygen and wean FiO2 for saturations greater than 90%. 2. Continue to hold diuretics, given tenuous hemodynamics. 3. Continue tadalafil as ordered. 4. Continue bronchodilators as ordered. 5. Encourage incentive spirometer use while in bed. 6. Potential hospice care discussion if no improvement over the next 24 hours. IMPRESSIONS: 1. Acute on chronic hypoxemic respiratory failure The patient does have an underlying [id number] smoking history, but quit completely in December 2015.? The patient follows with cardiology on an outpatient basis, as he has severe right-sided heart failure and pulmonary hypertension, which is likely secondary to underlying uncorrected ventricular septal defect.? There has also been concern that the patient was developed Eisenmenger syndrome. He is currently followed by a pulmonary hypertension specialist at [facility]. The patient became a acutely decompensated in the setting of his presenting anemia. Although the patient's blood counts are stable at the current time, he continues to require a high amount of respiratory support. His tenuous hemodynamics would preclude the use of diuretics currently. Plan to continue heated high flow and wean FiO2 for saturations greater than 90%. Continue tadalafil and bronchodilators per home regimen. If the patient does not begin to demonstrate clinical improvement over the next 24 to 48 hours, he is considering hospice care involvement. 2. Acute GI bleed of unclear etiology The patient has already undergone an upper and lower endoscopic evaluation, with multiple nonbleeding angioectasias noted in the stomach. Lower endoscopy was nondiagnostic due to inadequate prep. The patient is not interested in pursuing any additional endoscopic evaluation. However, blood counts are currently stable. Continue to monitor H&H daily. Plan to continue transfusion of blood products, if necessary. Continue PPI therapy as ordered. 3. History of COPD/obstructive sleep apnea/obesity Complicates care, management, recovery and prognosis. Continue home medications as indicated. This note was generated with [employer] dictation software. It may contain incorrect words, spelling, and punctuation that were not noted in checking the note before signing. Subjective Subjective The patient was seen and examined at the bedside this morning. Events from the last 24 hours have been reviewed. The patient is currently afebrile, hemodynamically stable and maintaining appropriate oxygen saturations on Airvo heated high flow with an FiO2 requirement of 93% and flow rate of 60 L/min. The patient was able to be weaned off of Levophed completely yesterday afternoon. He is currently documented to be overall net +6.5 L for the hospitalization. The patient reported to me this morning that if he does not improve over the next 24 to 48 hours that he would then be agreeable for discharge with home hospice. Objective Data Objective Data The patient's most recent lab work, culture data and imaging studies have all been personally reviewed. Surface echocardiogram from September 2020 demonstrated an ejection fraction of 60% with diastolic dysfunction. The RV was noted to be moderately dilated with normal systolic function and a right ventricular systolic pressure estimated to be 84 mmHg. Vital Signs: Vital Signs Temp Pulse Resp BP Pulse Ox O2 Del Method O2 Flow Rate 97.8 F 92 24 H 100/57 L 93 Airvo 60 03/22/22 00:00 03/22/22 05:07 03/22/22 05:07 03/22/22 04:00 03/22/22 05:07 03/22/22 04:00 03/22/22 04:00 FiO2 93 03/22/22 05:07 Oxygen Flow Rate (L/min) 60 Oxygen Delivery Method Airvo Weight: 249 lb 9.012 oz Body Mass Index (BMI) 32.3 Intake & Output: Intake and Output for Last 24 Hours 03/20/22 03/21/22 03/22/22 23:59 23:59 23:59 Intake Total 2837.49 / 3056.29 1603.98 / 1903.98 300 / 300 Output Total 500 / 500 1100 / 1100 Balance 2337.49 / 2556.29 503.98 / 803.98 300 / 300 Lab / Micro Data Attestation: I reviewed the patient's lab results. Result Diagrams: 03/22/22 06:05 03/22/22 06:05 Labs: Laboratory Results - last 24 hr 03/18/22 09:45: Crossmatch See Detail 03/19/22 09:45: Crossmatch See Detail 03/21/22 04:13: WBC 6.9, RBC 2.71 L, Hgb 7.4 L, Hct 24.1 L, MCV 88.9, MCH 27.3, MCHC 30.7 L, RDW Std Deviation 45.6 H, RDW Coeff of Reece 14.4, Plt Count 149 L, MPV 10.3, Immature Gran % (Auto) 0.300, Neut % (Auto) 80.9 H, Lymph % (Auto) 8.9 L, [place] % (Auto) 7.7, Eos % (Auto) 1.9, Baso % (Auto) 0.3, Absolute Neuts (auto) 5.6, Absolute Lymphs (auto) 0.61 L, Nucleated RBC % 0 03/21/22 04:13: Sodium 136, Potassium 3.8, Chloride 99, Carbon Dioxide 34.0 H, Anion Gap 3 L, BUN 25 H, Creatinine 0.79, Estim Creat Clear Calc 101.39, Est GFR (MDRD) Af Amer 129, Est GFR (MDRD) Non-Af 106, BUN/Creatinine Ratio 31.7 H, Glucose 130 H, Calcium 8.1 L 03/21/22 19:30: Hgb 8.2 L, Hct 25.7 L Micro: Microbiology 03/18/22 09:47 Stool Stool Occult Blood (ANYI) - Final Occult Blood Positive Rhythm Strip Rhythm Strip: Sinus Tach Rate: 102 Ectopy: None Physical Exam Const alert and no apparent distress General Appearance: cooperative Nutritional Appearance: obese HEENT normocephalic and head/scalp atraumatic Eyes PERRL and EOMs intact bilaterally Neck supple General: trachea midline Chest inspection of chest normal Resp Effort and Inspection: tachypneic Auscultation: rales bilateral base Cardio regular rate and regular rhythm Heart Sounds: murmur GI normal to inspection, nondistended, normoactive bowel sounds Extremity General Extremity: amputation and edema Skin no rashes or lesions noted Neuro CN's II-XII intact bilaterally, moves all extremities and no focal motor deficits Psych cooperative and affect normal Charges/Coding Visit Charges Inpatient E&M: 07386 Subs Hosp L3
[2022-03-22 06:17] LABS: Absolute Lymphocyte Count 0.79 X10^3/uL (0.83-4.51); Basophil# 0.01 X10^3/uL; Basophil% 0.1 % (0-1); Eosinophil# 0.07 X10^3/uL; Eosinophils% 0.9 % (0-5); Hematocrit 25.6 % (40-54); Hemoglobin 7.8 g/dL (13.0-16.5); Lymphocyte # 0.79 X10^3/ul (0.83-4.51); Lymphocyte % 10.6 % (19-41); Mean Corp Hgb Conc 30.5 g/dL (32-36); Mean Corpuscular Hgb 26.9 pg (27.0-32.0); Mean Corpuscular Volume 88.3 fL (80-94); Mean Platelet Vol. 9.4 fl (6.2-12.0); Monocyte# 0.48 X10^3/uL; Monocyte% 6.5 % (0-10); NRBC Flagged by Analyzer 0 % (0-5); Neutrophil # 6.04 X10^3/uL (2.7-7.7); Neutrophil % 81.5 % (47-70); Platelet Count 119 K/mm3 (150-450); RBC Distribution Width CV 14.2 % (11.6-14.6); RBC Distribution Width SD 45.8 fl (35.1-43.9); White Blood Count 7.4 K/mm3 (4.4-11.0)
[2022-03-22 06:28] LABS: Anion Gap 1 (5-15); BUN 15 mg/dL (7-18); BUN/Creat Ratio 21.1 RATIO (10-20); Calcium,Total 8.1 mg/dL (8.5-10.1); Chloride 99 mmol/L (98-107); Creatinine, Serum 0.71 mg/dL (0.70-1.30); EST Glomerular Filtration Rate 120 mL/min (>60); Est Glom Filt Rate - Afr Amer 145 mL/min (>60); Estimated Creatinine Clearance 112.81 ml/min; Glucose 116 mg/dL (74-106); Potassium 4.3 mmol/L (3.5-5.1); Sodium Level 134 mmol/L (136-145)
[2022-03-22] MEDS: Ipratropium/Albuterol Sulfate 3 ML AMPUL.NEB INHALATION ×2 (06:39→19:06)
--- NOTE | 2022-03-22 07:48 | PN.HOSP_ITS ---
Subjective Subjective Patient is a 61-year-old gentleman with complicated past medical history including VSD with ST minus syndrome with severe pulmonary hypertension presented with GI bleed Objective Data Objective Data Vital Signs: Vital Signs Temp Pulse Resp BP Pulse Ox O2 Del Method O2 Flow Rate 97.8 F 101 H 26 H 103/55 L 86 Airvo 60 03/22/22 00:00 03/22/22 06:40 03/22/22 06:40 03/22/22 06:00 03/22/22 06:40 03/22/22 06:00 03/22/22 06:00 FiO2 92 03/22/22 06:40 Oxygen Flow Rate (L/min) 60 Oxygen Delivery Method Airvo Weight: 115.5 kg Body Mass Index (BMI) 32.3 Intake & Output: Intake and Output for Last 24 Hours 03/20/22 03/21/22 03/22/22 23:59 23:59 23:59 Intake Total 2837.49 / 3056.29 1603.98 / 1903.98 500 / 500 Output Total 500 / 500 1100 / 1100 Balance 2337.49 / 2556.29 503.98 / 803.98 500 / 500 Lab / Micro Data Result Diagrams: 03/22/22 06:05 03/22/22 06:05 Labs: Laboratory Results - last 24 hr 03/18/22 09:45: Crossmatch See Detail 03/19/22 09:45: Crossmatch See Detail 03/21/22 19:30: Hgb 8.2 L, Hct 25.7 L 03/22/22 06:05: WBC 7.4, RBC 2.90 L, Hgb 7.8 L, Hct 25.6 L, MCV 88.3, MCH 26.9 L , MCHC 30.5 L, RDW Std Deviation 45.8 H, RDW Coeff of Reece 14.2, Plt Count 119 L, MPV 9.4, Immature Gran % (Auto) 0.400, Neut % (Auto) 81.5 H, Lymph % (Auto) 10.6 L, [place] % (Auto) 6.5, Eos % (Auto) 0.9, Baso % (Auto) 0.1, Absolute Neuts (auto) 6.0, Absolute Lymphs (auto) 0.79 L, Nucleated RBC % 0 03/22/22 06:05: Sodium 134 L, Potassium 4.3, Chloride 99, Carbon Dioxide 34.0 H, Anion Gap 1 L, BUN 15, Creatinine 0.71, Estim Creat Clear Calc 112.81, Est GFR (MDRD) Af Amer 145, Est GFR (MDRD) Non-Af 120, BUN/Creatinine Ratio 21.1 H, Glucose 116 H, Calcium 8.1 L Micro: Microbiology 03/18/22 09:47 Stool Stool Occult Blood (ANYI) - Final Occult Blood Positive Rhythm Strip Rhythm Strip: Sinus Tach Rate: 102 Ectopy: None Physical Exam Narrative GENERAL: cooperative HEENT: Atraumatic; EYES; Anicteric, Normal Conjunctiva NECK; supple, normal thyroid, RESPIRATORY: Diminished to auscultation CARDIOVASCULAR: Regular S1 S2, with a loud systolic ejection murmur GI: soft, normoactive bowel sounds, large left nonreducible inguinal hernia : No Renal angle tenderness; EXTREMITIES: No edema, no clubbing, MUSCULOSKELETAL: no muscle wasting NEURO: Awake; no lateralizing signs. SKIN: No Rash PSYCH; Flat affect Assessment & Plan Assessment/Plan (1) Acute GI bleeding: (2) Orthostatic hypotension: PLAN: Plan Patient is a 61-year-old gentleman with complicated past medical history i ncluding VSD with ST minus syndrome with severe pulmonary hypertension presented with GI bleed 1. Acute GI bleed secondary to upper GI bleed ? Patient underwent EGD found to have multiple nonbleeding angiectasis in the stomach treated with chemotherapy. Also had colonoscopy poor prep 1 5 mm polyp in the sigmoid colon removed with a cold snare 2. Anemia ? Secondary to acute blood loss anemia from above ? Hemoglobin on admission was 5.6. Patient transfused with 2 unit PRBC 3. Shock ? Due to combination of hypovolemia as well as patient medications Ambrisentan as well as tadalafil. ? Patient managed with fluid blood transfusion as well as pressor therapy which has since been weaned off 4. Acute on chronic hypoxic respiratory failure ? Secondary to severe pulmonary hypertension as a result of VSD with Eisenmenger syndrome. Patient currently being managed in ICU. On noninvasive ventilation Eville. Being followed by pulmonary medicine 5. COPD ? Currently stable 6. Obstructive sleep apnea ? Untreated 7. Tobacco dependence - Counseled on cessation, offered nicotine patch for tobacco cravings 8. DVT prophylaxis ? Bilateral SCDs Charges/Coding Visit Charges Inpatient E&M: 23161 Subs Hosp L3
[2022-03-22] MEDS: Magnesium Hydroxide 30 ML UDC PO (09:55)
[2022-03-22] MEDS: Ferrous Sulfate 325 MG Tablet PO (09:55)
[2022-03-22] MEDS: TADALAFIL 20 MG TABLET 40 MG PO (09:56)
[2022-03-22] MEDS: Ensure Clear 120 ML Liquid PO ×3 (10:03→19:58)
[2022-03-22] MEDS: Acetaminophen 325 MG Tablet 650 MG PO (15:38)
[2022-03-22] MEDS: oxyCODONE 5 MG Tablet PO (19:58)
[2022-03-23] VITALS (37 sets, daily range): BP systolic 71–131; BP diastolic 41–85; PULSE 80–107; RESP 16–25; TEMP 36.5–37.2; O2SAT 83–94
[2022-03-23] MEDS: Acetaminophen 325 MG Tablet 650 MG PO ×3 (03:50→22:03)
[2022-03-23] MEDS: oxyCODONE 5 MG Tablet PO ×2 (03:51→15:38)
[2022-03-23 04:01] LABS: Absolute Lymphocyte Count 0.59 X10^3/uL (0.83-4.51); Absolute Neutrophil Count 5.1 X10^3/uL (2.0-7.7); Basophil# 0.01 X10^3/uL; Basophil% 0.2 % (0-1); Eosinophil# 0.13 X10^3/uL; Hematocrit 25.1 % (40-54); Hemoglobin 7.7 g/dL (13.0-16.5); Lymphocyte # 0.59 X10^3/ul (0.83-4.51); Lymphocyte % 9.2 % (19-41); Mean Corp Hgb Conc 30.7 g/dL (32-36); Mean Corpuscular Hgb 27.3 pg (27.0-32.0); Mean Platelet Vol. 10.4 fl (6.2-12.0); Monocyte# 0.55 X10^3/uL; Monocyte% 8.6 % (0-10); NRBC Flagged by Analyzer 0 % (0-5); Neutrophil # 5.08 X10^3/uL (2.7-7.7); Neutrophil % 79.5 % (47-70); POSITIVE DIFFERENTIAL YES; Platelet Count 116 K/mm3 (150-450); RBC Distribution Width CV 14.2 % (11.6-14.6); RBC Distribution Width SD 45.9 fl (35.1-43.9); Red Blood Count 2.82 M/mm3 (4.6-6.2); White Blood Count 6.4 K/mm3 (4.4-11.0)
[2022-03-23 04:05] LABS: Differential Indicated SCAN CRITERIA MET
[2022-03-23 04:20] LABS: Anion Gap 3 (5-15); BUN 11 mg/dL (7-18); BUN/Creat Ratio 19.2 RATIO (10-20); Calcium,Total 8.1 mg/dL (8.5-10.1); Chloride 97 mmol/L (98-107); Creatinine, Serum 0.57 mg/dL (0.70-1.30); EST Glomerular Filtration Rate 153 mL/min (>60); Est Glom Filt Rate - Afr Amer 186 mL/min (>60); Estimated Creatinine Clearance 140.52 ml/min; Glucose 123 mg/dL (74-106); Magnesium 2.8 mg/dL (1.6-2.6); Potassium 4.1 mmol/L (3.5-5.1); Sodium Level 135 mmol/L (136-145)
--- NOTE | 2022-03-23 05:59 | PCM.PN.INT ---
Assessment & Plan Assessment/Plan (1) Acute and chronic respiratory failure with hypoxia: PLAN: Plan RECOMMENDATIONS: 1. Continue heated high flow oxygen and wean FiO2 for saturations greater than 90%. 2. Okay to liberalize diet today from my perspective. 3. Attempt gentle diuresis today. 4. Continue tadalafil as ordered. 5. Continue bronchodilators as ordered. 6. Encourage incentive spirometer use while in bed. IMPRESSIONS: 1. Acute on chronic hypoxemic respiratory failure The patient does have an underlying [id number] smoking history, but quit completely in December 2015.? The patient follows with cardiology on an outpatient basis, as he has severe right-sided heart failure and pulmonary hypertension, which is likely secondary to underlying uncorrected ventricular septal defect.? There has also been concern that the patient had developed Eisenmenger syndrome. He is currently followed by a pulmonary hypertension specialist at [facility]. The patient became a acutely decompensated in the setting of his presenting anemia. Although the patient's blood counts are stable at the current time, he continues to require a high amount of respiratory support. His tenuous hemodynamics has largely precluded the aggressive use of diuretics. Plan to continue heated high flow and wean FiO2 for saturations greater than 90%. Continue tadalafil and bronchodilators per home regimen. In light of his current clinical state, will attempt gentle diuresis today with Lasix. His diet can be liberalized. If no improvement over the next 24 hours, consider hospice care referral. 2. Acute GI bleed of unclear etiology The patient has already undergone an upper and lower endoscopic evaluation, with multiple nonbleeding angioectasias noted in the stomach. Lower endoscopy was nondiagnostic due to inadequate prep. The patient is not interested in pursuing any additional endoscopic evaluation. However, blood counts are currently stable. Continue to monitor H&H daily. Plan to continue transfusion of blood products, if necessary. Continue PPI therapy as ordered. 3. History of COPD/obstructive sleep apnea/obesity Complicates care, management, recovery and prognosis. Continue home medications as indicated. This note was generated with [employer] dictation software. It may contain incorrect words, spelling, and punctuation that were not noted in checking the note before signing. Subjective Subjective The patient was seen and examined at the bedside this morning. Events from the last 24 hours have been reviewed. The patient is currently afebrile and maintaining appropriate oxygen saturations on Airvo heated high flow with an FiO2 requirement of 93% and flow rate of 60 L/min. The patient's hemodynamic status remains quite tenuous. Hemoglobin this morning is stable at 7.7 g/dL. Platelet count remains low at 116,000. The patient is currently documented to be overall net +6.8 L for the hospitalization. It appears that the patient had oxygen saturations in the upper 80s the vast majority of the night. Despite his oxygenation status, the patient reported that he feels relatively well this morning. He is still considering hospice care services, but would like to wait one additional day with an attempt to administer Lasix today. Objective Data Objective Data The patient's most recent lab work, culture data and imaging studies have all been personally reviewed. Surface echocardiogram from September 2020 demonstrated an ejection fraction of 60% with diastolic dysfunction. The RV was noted to be moderately dilated with normal systolic function and a right ventricular systolic pressure estimated to be 84 mmHg. Vital Signs: Vital Signs Temp Pulse Resp BP Pulse Ox O2 Del Method O2 Flow Rate 99 F 85 21 H 87/56 L 92 Airvo 60 03/23/22 04:00 03/23/22 05:15 03/23/22 05:15 03/23/22 05:00 03/23/22 05:15 03/23/22 05:00 03/23/22 05:00 FiO2 92 03/23/22 05:15 Oxygen Flow Rate (L/min) 60 Oxygen Delivery Method Airvo Weight: 255 lb 15.307 oz Body Mass Index (BMI) 32.3 Intake & Output: Intake and Output for Last 24 Hours 03/21/22 03/22/22 03/23/22 23:59 23:59 23:59 Intake Total 1603.98 / 1903.98 1010 / 1010 240 / 240 Output Total 1100 / 1100 600 / 600 Balance 503.98 / 803.98 410 / 410 240 / 240 Lab / Micro Data Attestation: I reviewed the patient's lab results. Result Diagrams: 03/23/22 03:45 03/23/22 03:45 Labs: Laboratory Results - last 24 hr 03/19/22 09:45: Crossmatch See Detail 03/22/22 06:05: WBC 7.4, RBC 2.90 L, Hgb 7.8 L, Hct 25.6 L, MCV 88.3, MCH 26.9 L, MCHC 30.5 L, RDW Std Deviation 45.8 H, RDW Coeff of Reece 14.2, Plt Count 119 L, MPV 9.4, Immature Gran % (Auto) 0.400, Neut % (Auto) 81.5 H, Lymph % (Auto) 10.6 L, [place] % (Auto) 6.5, Eos % (Auto) 0.9, Baso % (Auto) 0.1, Absolute Neuts (auto) 6.0, Absolute Lymphs (auto) 0.79 L, Nucleated RBC % 0 03/22/22 06:05: Sodium 134 L, Potassium 4.3, Chloride 99, Carbon Dioxide 34.0 H, Anion Gap 1 L, BUN 15, Creatinine 0.71, Estim Creat Clear Calc 112.81, Est GFR (MDRD) Af Amer 145, Est GFR (MDRD) Non-Af 120, BUN/Creatinine Ratio 21.1 H, Glucose 116 H, Calcium 8.1 L 03/23/22 03:45: WBC 6.4, RBC 2.82 L, Hgb 7.7 L, Hct 25.1 L, MCV 89.0, MCH 27.3, MCHC 30.7 L, RDW Std Deviation 45.9 H, RDW Coeff of Reece 14.2, Plt Count 116 L, MPV 10.4, Immature Gran % (Auto) 0.500, Neut % (Auto) 79.5 H, Lymph % (Auto) 9.2 L, [place] % (Auto) 8.6, Eos % (Auto) 2.0, Baso % (Auto) 0.2, Absolute Neuts (auto) 5.1, Absolute Lymphs (auto) 0.59 L, Nucleated RBC % 0 03/23/22 03:45: Sodium 135 L, Potassium 4.1, Chloride 97 L, Carbon Dioxide 35.0 H, Anion Gap 3 L, BUN 11, Creatinine 0.57 L, Estim Creat Clear Calc 140.52, Est GFR (MDRD) Af Amer 186, Est GFR (MDRD) Non-Af 153, BUN/Creatinine Ratio 19.2, Glucose 123 H, Calcium 8.1 L, Magnesium 2.8 H Micro: Microbiology 03/18/22 09:47 Stool Stool Occult Blood (ANYI) - Final Occult Blood Positive Rhythm Strip Rhythm Strip: Sinus Tach Rate: 102 Ectopy: None Physical Exam Const alert General Appearance: cooperative and ill appearing Nutritional Appearance: obese HEENT normocephalic and head/scalp atraumatic Eyes PERRL and EOMs intact bilaterally Neck supple General: trachea midline Chest inspection of chest normal Resp Effort and Inspection: able to speak in complete sentences and tachypneic Auscultation: rales bilateral base Cardio regular rate and regular rhythm Heart Sounds: murmur GI normal to inspection, nondistended, normoactive bowel sounds Extremity General Extremity: amputation and edema Skin no rashes or lesions noted Neuro CN's II-XII intact bilaterally, moves all extremities and no focal motor deficits Psych cooperative and affect normal Charges/Coding Visit Charges Inpatient E&M: 25701 Subs Hosp L3
[2022-03-23] MEDS: Ipratropium/Albuterol Sulfate 3 ML AMPUL.NEB INHALATION ×2 (06:49→18:50)
--- NOTE | 2022-03-23 07:21 | PN.HOSP_ITS ---
Subjective Subjective Patient seen admit to some improvement in overall condition. He finally had a bowel movement. Hemoglobin has remained fairly stable at 7.7 was 7.8 the day prior. Objective Data Objective Data Vital Signs: Vital Signs Temp Pulse Resp BP Pulse Ox O2 Del Method O2 Flow Rate 99 F 88 19 H 100/51 L 91 Airvo 60 03/23/22 04:00 03/23/22 06:46 03/23/22 06:46 03/23/22 06:00 03/23/22 06:46 03/23/22 06:00 03/23/22 06:00 FiO2 82 03/23/22 06:46 Oxygen Flow Rate (L/min) 60 Oxygen Delivery Method Airvo Weight: 116.1 kg Body Mass Index (BMI) 32.3 Intake & Output: Intake and Output for Last 24 Hours 03/21/22 03/22/22 03/23/22 23:59 23:59 23:59 Intake Total 1603.98 / 1903.98 1010 / 1010 240 / 240 Output Total 1100 / 1100 600 / 600 Balance 503.98 / 803.98 410 / 410 240 / 240 Lab / Micro Data Result Diagrams: 03/23/22 03:45 03/23/22 03:45 Labs: Laboratory Results - last 24 hr 03/19/22 09:45: Crossmatch See Detail 03/23/22 03:45: WBC 6.4, RBC 2.82 L, Hgb 7.7 L, Hct 25.1 L, MCV 89.0, MCH 27.3, MCHC 30.7 L, RDW Std Deviation 45.9 H, RDW Coeff of Reece 14.2, Plt Count 116 L, MPV 10.4, Immature Gran % (Auto) 0.500, Neut % (Auto) 79.5 H, Lymph % (Auto) 9.2 L, [place] % (Auto) 8.6, Eos % (Auto) 2.0, Baso % (Auto) 0.2, Absolute Neuts (auto) 5.1, Absolute Lymphs (auto) 0.59 L, Nucleated RBC % 0 03/23/22 03:45: Sodium 135 L, Potassium 4.1, Chloride 97 L, Carbon Dioxide 35.0 H, Anion Gap 3 L, BUN 11, Creatinine 0.57 L, Estim Creat Clear Calc 140.52, Est GFR (MDRD) Af Amer 186, Est GFR (MDRD) Non-Af 153, BUN/Creatinine Ratio 19.2, Glucose 123 H, Calcium 8.1 L, Magnesium 2.8 H Micro: Microbiology 03/18/22 09:47 Stool Stool Occult Blood (ANYI) - Final Occult Blood Positive Rhythm Strip Rhythm Strip: Sinus Tach Rate: 102 Ectopy: None Physical Exam Narrative GENERAL: cooperative HEENT: Atraumatic; EYES; Anicteric, Normal Conjunctiva NECK; supple, normal thyroid, RESPIRATORY: Diminished to auscultation CARDIOVASCULAR: Regular S1 S2, with a loud systolic ejection murmur GI: soft, normoactive bowel sounds, large left nonreducible inguinal hernia : No Renal angle tenderness; EXTREMITIES: No edema, no clubbing, MUSCULOSKELETAL: no muscle wasting NEURO: Awake; no lateralizing signs. SKIN: No Rash PSYCH; Flat affect Assessment & Plan Assessment/Plan (1) Acute GI bleeding: (2) Orthostatic hypotension: PLAN: Plan Patient is a 61-year-old gentleman with complicated past medical history including VSD with ST minus syndrome with severe pulmonary hypertension presented with GI bleed 1. Acute GI bleed secondary to upper GI bleed ? Patient underwent EGD found to have multiple nonbleeding angiectasis in the stomach treated with chemotherapy. Also had colonoscopy poor prep 1 5 mm polyp in the sigmoid colon removed with a cold snare ? 03/23/2022; hemoglobin has remained fairly stable 7.7 this a.m. 2. Anemia ? Secondary to acute blood loss anemia from above ? Hemoglobin on admission was 5.6. Patient transfused with 2 unit PRBC 3. Shock ? Due to combination of hypovolemia as well as patient medications Ambrisentan as well as tadalafil. ? Patient managed with fluid blood transfusion as well as pressor therapy which has since been weaned off 4. Acute on chronic hypoxic respiratory failure ? Secondary to severe pulmonary hypertension as a result of VSD with Eisenmenger syndrome. Patient currently being managed in ICU. On noninvasive ventilation Ren. Being followed by pulmonary medicine ? 03/23/2022; remains on supplemental oxygen 5. COPD ? Currently stable 6. Obstructive sleep apnea ? Untreated 7. Tobacco dependence - Counseled on cessation, offered nicotine patch for tobacco cravings 8. DVT prophylaxis ? Bilateral SCDs Charges/Coding Visit Charges Inpatient E&M: 50678 Subs Hosp L3
[2022-03-23] MEDS: Furosemide 20 MG/2 ML VIAL IV (07:46)
[2022-03-23] MEDS: 0.9% Saline Lock 10 ML Syringe IV (07:46)
[2022-03-23] MEDS: TADALAFIL 20 MG TABLET 40 MG PO (09:57)
[2022-03-23] MEDS: Ferrous Sulfate 325 MG Tablet PO (09:57)
--- NOTE | 2022-03-23 23:20 | CPS ---
Changed water bag out for AirVo
[2022-03-24] VITALS (25 sets, daily range): BP systolic 101–123; BP diastolic 55–73; PULSE 78–93; RESP 15–24; TEMP 36.4–36.9; O2SAT 88–97
[2022-03-24] MEDS: oxyCODONE 5 MG Tablet PO ×2 (05:16→17:24)
[2022-03-24 05:18] LABS: Absolute Lymphocyte Count 0.83 X10^3/uL (0.83-4.51); Absolute Neutrophil Count 3.3 X10^3/uL (2.0-7.7); Basophil# 0.02 X10^3/uL; Basophil% 0.4 % (0-1); Eosinophil# 0.19 X10^3/uL; Eosinophils% 3.9 % (0-5); Hematocrit 24.8 % (40-54); Hemoglobin 7.5 g/dL (13.0-16.5); Lymphocyte # 0.83 X10^3/ul (0.83-4.51); Lymphocyte % 17.2 % (19-41); Mean Corp Hgb Conc 30.2 g/dL (32-36); Mean Corpuscular Hgb 26.7 pg (27.0-32.0); Mean Corpuscular Volume 88.3 fL (80-94); Mean Platelet Vol. 10.9 fl (6.2-12.0); Monocyte# 0.47 X10^3/uL; Monocyte% 9.8 % (0-10); NRBC Flagged by Analyzer 0 % (0-5); Neutrophil # 3.27 X10^3/uL (2.7-7.7); Neutrophil % 67.9 % (47-70); Platelet Count 129 K/mm3 (150-450); RBC Distribution Width CV 14.1 % (11.6-14.6); RBC Distribution Width SD 45.6 fl (35.1-43.9); Red Blood Count 2.81 M/mm3 (4.6-6.2); White Blood Count 4.8 K/mm3 (4.4-11.0)
[2022-03-24 05:41] LABS: Anion Gap 3 (5-15); BUN 10 mg/dL (7-18); BUN/Creat Ratio 18.3 RATIO (10-20); Calcium,Total 8.4 mg/dL (8.5-10.1); Chloride 99 mmol/L (98-107); Creatinine, Serum 0.55 mg/dL (0.70-1.30); EST Glomerular Filtration Rate 162 mL/min (>60); Est Glom Filt Rate - Afr Amer 196 mL/min (>60); Estimated Creatinine Clearance 145.63 ml/min; Glucose 112 mg/dL (74-106); Potassium 3.9 mmol/L (3.5-5.1); Sodium Level 137 mmol/L (136-145)
--- NOTE | 2022-03-24 06:39 | PCM.PN.INT ---
Assessment & Plan Assessment/Plan (1) Acute and chronic respiratory failure with hypoxia: PLAN: Plan RECOMMENDATIONS: 1. Continue heated high flow oxygen and wean FiO2 for saturations greater than 90%. 2. Proceed with hospice care referral today. 3. CODE STATUS updated to DNR comfort care. 4. We will continue Lasix as tolerated for now. 5. Continue tadalafil as ordered. 6. Continue bronchodilators as ordered. 7. Encourage incentive spirometer use while in bed. IMPRESSIONS: 1. Acute on chronic hypoxemic respiratory failure The patient does have an underlying [id number] smoking history, but quit completely in December 2015.? The patient follows with cardiology on an outpatient basis, as he has severe right-sided heart failure and pulmonary hypertension, which is likely secondary to underlying uncorrected ventricular septal defect.? There has also been concern that the patient had developed Eisenmenger syndrome. He is currently followed by a pulmonary hypertension specialist at [facility]. The patient became a acutely decompensated in the setting of his presenting anemia. Although the patient's blood counts are stable at the current time, he continues to require a high amount of respiratory support. His tenuous hemodynamics has largely precluded the aggressive use of diuretics. Plan to continue heated high flow and wean FiO2 for saturations greater than 90%. Continue tadalafil and bronchodilators per home regimen. In light of his current clinical state, will continue attempts at gentle diuresis today with IV Lasix. The patient this morning has indicated his interest in pursuing hospice care involvement and transitioning to comfort care measures. Case management will be made aware of this decision and a formal referral to hospice care will be placed. 2. Acute GI bleed of unclear etiology The patient has already undergone an upper and lower endoscopic evaluation, with multiple nonbleeding angioectasias noted in the stomach. Lower endoscopy was nondiagnostic due to inadequate prep. The patient is not interested in pursuing any additional endoscopic evaluation. However, blood counts are currently stable. Continue to monitor H&H daily. Plan to continue transfusion of blood products, if necessary. Continue PPI therapy as ordered. 3. History of COPD/obstructive sleep apnea/obesity Complicates care, management, recovery and prognosis. Continue home medications as indicated. CODE status: Discussed CODE status at length including difference between FULL code, DNR-CCA and DNR-CC status. Following discussions about the differences in these status, patient requested DNR-CC CODE STATUS. Advanced Care Planning Face to Face Time: 19 minutes This note was generated with [employer] dictation software. It may contain incorrect words, spelling, and punctuation that were not noted in checking the note before signing. Subjective Subjective The patient was seen and examined at the bedside this morning. Events from the last 24 hours have been reviewed. The patient is currently afebrile and hemodynamically stable. Unfortunately, the patient's oxygenation status has not improved at all. He remains on maximum support from a heated high flow perspective. The patient did receive IV diuretic therapy yesterday. He is currently documented to be overall net +6.1 L for the hospitalization. Hemoglobin is stable at 7.5 g/dL. I spoke to the patient at the bedside this morning regarding goals of care. At this time, the patient indicated he is interested in transitioning to comfort care measures and obtaining hospice care consultation in hopes that he can return home with hospice care services in place. Objective Data Objective Data The patient's most recent lab work, culture data and imaging studies have all been personally reviewed. Surface echocardiogram from September 2020 demonstrated an ejection fraction of 60% with diastolic dysfunction. The RV was noted to be moderately dilated with normal systolic function and a right ventricular systolic pressure estimated to be 84 mmHg. Vital Signs: Vital Signs Temp Pulse Resp BP Pulse Ox O2 Del Method O2 Flow Rate 98.4 F 87 22 H 111/61 91 Airvo 60 03/24/22 04:00 03/24/22 06:00 03/24/22 06:00 03/24/22 06:00 03/24/22 06:00 03/24/22 06:00 03/24/22 06:00 FiO2 93 03/24/22 06:00 Oxygen Flow Rate (L/min) 60 Oxygen Delivery Method Airvo Weight: 254 lb 13.67 oz Body Mass Index (BMI) 32.3 Intake & Output: Intake and Output for Last 24 Hours 03/22/22 03/23/22 03/24/22 23:59 23:59 23:59 Intake Total 1010 / 1010 840 / 840 Output Total 600 / 600 1300 / 1300 Balance 410 / 410 -460 / -460 Lab / Micro Data Attestation: I reviewed the patient's lab results. Result Diagrams: 03/24/22 05:10 03/24/22 05:10 Labs: Laboratory Results - last 24 hr 03/24/22 05:10: WBC 4.8, RBC 2.81 L, Hgb 7.5 L, Hct 24.8 L, MCV 88.3, MCH 26.7 L, MCHC 30.2 L, RDW Std Deviation 45.6 H, RDW Coeff of Reece 14.1, Plt Count 129 L, MPV 10.9, Immature Gran % (Auto) 0.800, Neut % (Auto) 67.9, Lymph % (Auto) 17.2 L, [place] % (Auto) 9.8, Eos % (Auto) 3.9, Baso % (Auto) 0.4, Absolute Neuts (auto) 3.3, Absolute Lymphs (auto) 0.83, Nucleated RBC % 0 03/24/22 05:10: Sodium 137, Potassium 3.9, Chloride 99, Carbon Dioxide 35.0 H, Anion Gap 3 L, BUN 10, Creatinine 0.55 L, Estim Creat Clear Calc 145.63, Est GFR (MDRD) Af Amer 196, Est GFR (MDRD) Non-Af 162, BUN/Creatinine Ratio 18.3, Glucose 112 H, Calcium 8.4 L Micro: Microbiology 03/18/22 09:47 Stool Stool Occult Blood (ANYI) - Final Occult Blood Positive Rhythm Strip Rhythm Strip: Sinus Tach Rate: 102 Ectopy: None Physical Exam Const alert General Appearance: cooperative and ill appearing Nutritional Appearance: obese HEENT normocephalic and head/scalp atraumatic Eyes PERRL and EOMs intact bilaterally Neck supple General: trachea midline Chest inspection of chest normal Resp Effort and Inspection: able to speak in complete sentences and tachypneic Auscultation: rales bilateral base Cardio regular rate and regular rhythm Heart Sounds: murmur GI normal to inspection, nondistended, normoactive bowel sounds Extremity General Extremity: amputation and edema Skin no rashes or lesions noted Neuro CN's II-XII intact bilaterally, moves all extremities and no focal motor deficits Psych cooperative and affect normal Charges/Coding Visit Charges Inpatient E&M: 92143 Subs Hosp L3 Procedures Hospitalists Procedures: 58603 Advncd Care Plan 30 Min
--- NOTE | 2022-03-24 07:43 | PN.HOSP_ITS ---
Subjective Subjective Follow-up acute on chronic hypoxic respiratory failure Objective Data Objective Data Vital Signs: Vital Signs Temp Pulse Resp BP Pulse Ox O2 Del Method O2 Flow Rate 98.4 F 87 22 H 111/61 91 Airvo 60 03/24/22 04:00 03/24/22 06:00 03/24/22 06:00 03/24/22 06:00 03/24/22 06:00 03/24/22 06:00 03/24/22 06:00 FiO2 93 03/24/22 06:00 Oxygen Flow Rate (L/min) 60 Oxygen Delivery Method Airvo Weight: 254 lb 13.67 oz Body Mass Index (BMI) 32.3 Intake & Output: Intake and Output for Last 24 Hours 03/22/22 03/23/22 03/24/22 23:59 23:59 23:59 Intake Total 1010 / 1010 840 / 840 Output Total 600 / 600 1300 / 1300 Balance 410 / 410 -460 / -460 Lab / Micro Data Result Diagrams: 03/24/22 05:10 03/24/22 05:10 Labs: Laboratory Results - last 24 hr 03/24/22 05:10: WBC 4.8, RBC 2.81 L, Hgb 7.5 L, Hct 24.8 L, MCV 88.3, MCH 26.7 L , MCHC 30.2 L, RDW Std Deviation 45.6 H, RDW Coeff of Reece 14.1, Plt Count 129 L, MPV 10.9, Immature Gran % (Auto) 0.800, Neut % (Auto) 67.9, Lymph % (Auto) 17.2 L, [place] % (Auto) 9.8, Eos % (Auto) 3.9, Baso % (Auto) 0.4, Absolute Neuts (auto) 3.3, Absolute Lymphs (auto) 0.83, Nucleated RBC % 0 03/24/22 05:10: Sodium 137, Potassium 3.9, Chloride 99, Carbon Dioxide 35.0 H, Anion Gap 3 L, BUN 10, Creatinine 0.55 L, Estim Creat Clear Calc 145.63, Est GFR (MDRD) Af Amer 196, Est GFR (MDRD) Non-Af 162, BUN/Creatinine Ratio 18.3, Glucose 112 H, Calcium 8.4 L Micro: Microbiology 03/18/22 09:47 Stool Stool Occult Blood (ANYI) - Final Occult Blood Positive Rhythm Strip Rhythm Strip: Sinus Tach Rate: 102 Ectopy: None Physical Exam Narrative Physical exam General: Alert, Oriented x3, Cooperative HEENT: Atraumatic, PERRLA, EOMI, Normocephalic Oral: No Gingival or Mucosal Lesions/ Ulcerations Neck: Supple, No JVD, Negative Carotid Bruits Lungs: Air entry diminished in bilateral lung bases. On Airvo. Tachypneic. Bilateral fine crepitations Cardiovascular: Regular rate, Regular Rhythm, Normal S1, Normal S2, No murmurs Abdomen: Bowel Sounds Present, Soft, Non Tender, Non-Distended : No renal angle tenderness. No suprapubic tenderness. Extremities: Right leg, 2+ pitting edema. Capillary Refill Less than 3 Seconds Skin: No rashes, No breakdown Musculoskeletal: Left BKA with prosthesis on. Neurological: Cranial nerves II-XII grossly intact, DTR 2+/4 Psych/Mental Status: Normal Affect, Appropriate. Assessment & Plan Assessment/Plan (1) Acute GI bleeding: (2) Orthostatic hypotension: PLAN: Plan Patient is a 61-year-old gentleman with complicated past medical history including VSD with ST minus syndrome with severe pulmonary hypertension presented with GI bleed 1. Acute GI bleed secondary to upper GI bleed Stool occult blood positive. Patient underwent EGD found to have multiple nonbleeding angiectasis in the stomach treated with chemotherapy. Also had colonoscopy poor prep 1 5 mm polyp in the sigmoid colon removed with a cold snare 2. Acute blood loss anemia ? Secondary to acute blood loss anemia from above. ? Hemoglobin on admission was 5.6. Patient transfused with 2 unit PRBC 03/24: Hemoglobin is 7.5. Platelet count 1 29,000. 3. Shock ? Due to combination of hypovolemia as well as patient medications Ambrisentan as well as tadalafil. ? Patient managed with fluid blood transfusion as well as pressor therapy which has since been weaned off 4. Acute on chronic hypoxic respiratory failure ? Secondary to severe pulmonary hypertension as a result of VSD with Eisenmenger syndrome. Patient currently being managed in ICU. On noninvasive ventilation Being followed by pulmonary medicine ? 03/24: Continue Lasix as per tolerated, tadalafil. Bronchodilators. Patient on high flow oxygen 93% FiO2, 60 L/min 5. COPD ? Not exacerbation 6. Obstructive sleep apnea ? Untreated 7. Tobacco dependence - Counseled on cessation, offered nicotine patch for tobacco cravings 8. DVT prophylaxis ? Bilateral SCDs Charges/Coding Visit Charges Inpatient E&M: 98194 Subs Hosp L3
[2022-03-24] MEDS: 0.9% Saline Lock 10 ML Syringe IV ×2 (09:25→22:24)
[2022-03-24] MEDS: Ferrous Sulfate 325 MG Tablet PO (09:25)
[2022-03-24] MEDS: Furosemide 20 MG/2 ML VIAL IV ×2 (09:25→17:25)
[2022-03-24] MEDS: TADALAFIL 20 MG TABLET 40 MG PO (09:25)
--- NOTE | 2022-03-24 10:11 | CASEMGMT ---
Addendum entered by Betsy Bowlign 03/24/22 10:57: HECTOR updated RN. Betsy MORENO Original Note: SW was informed patient would like Hospice. HECTOR met with patient. Introduced self and role at [facility]. Patient confirmed he would like [facility]. He would like to go home. SW let patient know SW will make the referral and Hospice will call his to set up appt. Patient agreed with plan. HECTOR called Esme at [facility] and let her know about referral that will be coming and that patient is maxed out on airvo but would like to go home. HECTOR then called the admissions hotline and made official referral as well as faxed information. HECTOR did call patient's Hayden and she was aware of referral and is now aware they will call her to set up appointment. Await call from Hospice. Betsy MORENO
--- NOTE | 2022-03-24 15:01 | CASEMGMT ---
HECTOR spoke with eGrardo at Hospice. Patient signed Hospice papers. Hospice will get equipment delivered to the home tomorrow. SW may need to arrange transportation depending on when patient leaves tomorrow. HECTOR will follow up with them tomorrow. Betsy MORENO
[2022-03-24] MEDS: Acetaminophen 325 MG Tablet 650 MG PO (17:24)
[2022-03-24] MEDS: Ipratropium/Albuterol Sulfate 3 ML AMPUL.NEB INHALATION (19:10)
[2022-03-25] VITALS (11 sets, daily range): BP systolic 112–129; BP diastolic 61–68; PULSE 79–95; RESP 18–21; TEMP 36.8–37.1; O2SAT 91–95
[2022-03-25 04:43] LABS: Absolute Lymphocyte Count 0.75 X10^3/uL (0.83-4.51); Absolute Neutrophil Count 2.9 X10^3/uL (2.0-7.7); Basophil# 0.01 X10^3/uL; Basophil% 0.2 % (0-1); Eosinophil# 0.21 X10^3/uL; Eosinophils% 4.9 % (0-5); Hematocrit 24.2 % (40-54); Hemoglobin 7.5 g/dL (13.0-16.5); Lymphocyte # 0.75 X10^3/ul (0.83-4.51); Lymphocyte % 17.4 % (19-41); Mean Corpuscular Hgb 27.1 pg (27.0-32.0); Mean Corpuscular Volume 87.4 fL (80-94); Mean Platelet Vol. 9.7 fl (6.2-12.0); Monocyte# 0.41 X10^3/uL; Monocyte% 9.5 % (0-10); NRBC Flagged by Analyzer 0 % (0-5); Neutrophil % 67.3 % (47-70); Platelet Count 132 K/mm3 (150-450); RBC Distribution Width SD 44.7 fl (35.1-43.9); Red Blood Count 2.77 M/mm3 (4.6-6.2); White Blood Count 4.3 K/mm3 (4.4-11.0)
[2022-03-25 05:08] LABS: Anion Gap 7 (5-15); BUN 12 mg/dL (7-18); BUN/Creat Ratio 21.5 RATIO (10-20); Calcium,Total 8.3 mg/dL (8.5-10.1); Chloride 105 mmol/L (98-107); Creatinine, Serum 0.56 mg/dL (0.70-1.30); EST Glomerular Filtration Rate 159 mL/min (>60); Est Glom Filt Rate - Afr Amer 192 mL/min (>60); Estimated Creatinine Clearance 143.03 ml/min; Glucose 106 mg/dL (74-106); Potassium 3.9 mmol/L (3.5-5.1); Sodium Level 150 mmol/L (136-145)
[2022-03-25] MEDS: Ipratropium/Albuterol Sulfate 3 ML AMPUL.NEB INHALATION (06:45)
--- NOTE | 2022-03-25 06:50 | PN.CC_ITS ---
Assessment & Plan Assessment/Plan (1) Acute and chronic respiratory failure with hypoxia: PLAN: Plan RECOMMENDATIONS: 1. Continue heated high flow oxygen and wean FiO2 for saturations greater than 90%. 2. Continue Lasix twice daily as ordered. 3. Continue tadalafil as ordered. 4. Continue bronchodilators as ordered. 5. Encourage incentive spirometer use while in bed. 6. Okay for discharge home with hospice care services. IMPRESSIONS: 1. Acute on chronic hypoxemic respiratory failure The patient does have an underlying [id number] smoking history, but quit completely in December 2015.? The patient follows with cardiology on an outpatient basis, as he has severe right-sided heart failure and pulmonary hypertension, which is likely secondary to underlying uncorrected ventricular septal defect.? There has also been concern that the patient had developed Eisenmenger syndrome. He is currently followed by a pulmonary hypertension specialist at [facility]. The patient became a acutely decompensated in the setting of his presenting anemia. Although the patient's blood counts are stable at the current time, he continues to require a high amount of respiratory support. His tenuous hemodynamics has largely precluded the aggressive use of diuretics. Plan to continue heated high flow and wean FiO2 for saturations greater than 90%. Continue tadalafil and bronchodilators per home regimen. In light of his current clinical state, will continue attempts at gentle diuresis today with IV Lasix. The patient has been set up for discharge home today with home hospice care services. 2. Acute GI bleed of unclear etiology The patient has already undergone an upper and lower endoscopic evaluation, with multiple nonbleeding angioectasias noted in the stomach. Lower endoscopy was nondiagnostic due to inadequate prep. The patient is not interested in pursuing any additional endoscopic evaluation. However, blood counts are currently stable. Continue to monitor H&H daily. Plan to continue transfusion of blood products, if necessary. Continue PPI therapy as ordered. 3. History of COPD/obstructive sleep apnea/obesity Complicates care, management, recovery and prognosis. Continue home medications as indicated. CODE status: Discussed CODE status at length including difference between FULL code, DNR-CCA and DNR-CC status. Following discussions about the differences in these status, patient requested DNR-CC CODE STATUS. This note was generated with GloNavation software. It may contain incorrect words, spelling, and punctuation that were not noted in checking the note before signing. Subjective Subjective The patient was seen and examined at the bedside this morning. Events from the last 24 hours have been reviewed. The patient is currently afebrile, hemodynamically stable and maintaining appropriate oxygen saturations on Airvo heated high flow with an FiO2 requirement of 67% and flow rate of 60 L/min. The patient is currently documented to be overall net +6.8 L for the hospitalization. The patient is being prepared for discharge home today with home hospice care services. Objective Data Objective Data The patient's most recent lab work, culture data and imaging studies have all be en personally reviewed. Surface echocardiogram from September 2020 demonstrated an ejection fraction of 60% with diastolic dysfunction. The RV was noted to be moderately dilated with normal systolic function and a right ventricular systolic pressure estimated to be 84 mmHg. Vital Signs: Vital Signs Temp Pulse Resp BP Pulse Ox O2 Del Method O2 Flow Rate 98.2 F 84 20 H 112/68 93 Airvo 60 03/25/22 03:00 03/25/22 06:45 03/25/22 06:45 03/25/22 03:00 03/25/22 03:00 03/25/22 03:00 03/25/22 03:00 FiO2 67 03/25/22 03:00 Oxygen Flow Rate (L/min) 60 Oxygen Delivery Method Airvo Weight: 254 lb 13.67 oz Body Mass Index (BMI) 32.3 Intake & Output: Intake and Output for Last 24 Hours 03/23/22 03/24/22 03/25/22 23:59 23:59 23:59 Intake Total 840 / 840 480 / 480 240 / 240 Output Total 1300 / 1300 Balance -460 / -460 480 / 480 240 / 240 Lab / Micro Data Attestation: I reviewed the patient's lab results. Result Diagrams: 03/25/22 04:30 03/25/22 04:30 Labs: Laboratory Results - last 24 hr 03/25/22 04:30: WBC 4.3 L, RBC 2.77 L, Hgb 7.5 L, Hct 24.2 L, MCV 87.4, MCH 27.1, MCHC 31.0 L, RDW Std Deviation 44.7 H, RDW Coeff of Reece 14.0, Plt Count 132 L, MPV 9.7, Immature Gran % (Auto) 0.700, Neut % (Auto) 67.3, Lymph % (Auto) 17.4 L, [place] % (Auto) 9.5, Eos % (Auto) 4.9, Baso % (Auto) 0.2, Absolute Neuts (auto) 2.9, Absolute Lymphs (auto) 0.75 L, Nucleated RBC % 0 03/25/22 04:30: Sodium 150 H, Potassium 3.9, Chloride 105, Carbon Dioxide 38.0 H , Anion Gap 7, BUN 12, Creatinine 0.56 L, Estim Creat Clear Calc 143.03, Est GFR (MDRD) Af Amer 192, Est GFR (MDRD) Non-Af 159, BUN/Creatinine Ratio 21.5 H, Glucose 106, Calcium 8.3 L Micro: Microbiology 03/18/22 09:47 Stool Stool Occult Blood (ANYI) - Final Occult Blood Positive Rhythm Strip Rhythm Strip: Sinus Tach Rate: 102 Ectopy: None Physical Exam Const alert General Appearance: cooperative and ill appearing Nutritional Appearance: obese HEENT normocephalic and head/scalp atraumatic Eyes PERRL and EOMs intact bilaterally Neck supple General: trachea midline Chest inspection of chest normal Resp Effort and Inspection: able to speak in complete sentences and tachypneic Auscultation: rales bilateral base Cardio regular rate and regular rhythm Heart Sounds: murmur GI normal to inspection, nondistended, normoactive bowel sounds Extremity General Extremity: amputation and edema Skin no rashes or lesions noted Neuro CN's II-XII intact bilaterally, moves all extremities and no focal motor defic its Psych cooperative and affect normal Charges/Coding Visit Charges Inpatient E&M: 39706 Subs Hosp L2
--- NOTE | 2022-03-25 07:34 | DCINST_ITS ---
Discharge Instructions Diet Discharge Diet: No restrictions Activity Discharge Activity: May Not Drive Weight Bearing Status: Weight bearing as tolerated Dressing / Incision Call your doctor if you observe: - (home hospice care) Follow Up Care Test Results: Test results from this visit will be discussed in further detail at your follow- up appointment, if applicable. Discharge Plan Admission Admit Date/Time: 03/18/22 10:25 Primary Reason for Your Visit: acute on chornic hypoxic resp failure Attending Provider: Manuel Casey [facility] Providers: Annelise Merida ; Sandeep Huynh ; Jeffry Yo ; Shola Hernandez Discharge Orders/Prescriptions Prescriptions: Continued aspirin [Adult Aspirin Regimen] 81 mg tablet,delayed release (DR/EC) 81 mg PO Q OTHER DAY Letairis 10 mg tablet 10 mg PO QDAY Qty: 90 3RF albuterol sulfate 2.5 mg /3 mL (0.083 %) solution for nebulization 2.5 mg INHALATION Q4H PRN (Reason: Dyspnea/Wheezing/Sob) Qty: 180 3RF Ventolin HFA 90 mcg/actuation HFA aerosol inhaler 2 puff INHALATION Q4H PRN (Reason: shortness of breath or wheezing) Qty: 18 6RF potassium chloride 10 mEq tablet extended release 10 meq PO DAILY oxycodone-acetaminophen 5-325 mg tablet 1 tab PO TID PRN (Reason: Pain) ferrous sulfate 325 mg (65 mg iron) tablet 325 mg PO DAILY Label Comments: TAKE 1 TABLET BY MOUTH EVERY DAY morphine (PF) 5 MG/ML pt controlled analgesia syring 6.5 mg SQ DAILY tadalafil (pulm. hypertension) 20 mg Tablet 40 mg PO DAILY Bevespi Aerosphere 9-4.8 mcg HFA aerosol inhaler 2 puff inhalation QAM AND QPM Qty: 1 3RF [facility] - Disposition Disposition (needs filled in before D/C Order can be placed): Hospice in Home
[2022-03-25] MEDS: oxyCODONE 5 MG Tablet PO (08:29)
[2022-03-25] MEDS: Ferrous Sulfate 325 MG Tablet PO (08:34)
[2022-03-25] MEDS: Acetaminophen 325 MG Tablet 650 MG PO (08:34)
--- NOTE | 2022-03-25 09:20 | DS.PCM_ITS ---
Providers Date of Admission: 03/18/22 Date of Discharge: 03/25/22 Primary Care Physician: [facility] Consultations 03/18/22 11:30 Consult: Gastroenterology Routine Consulting Provider: [facility] Reason for Consult: GI bleed EMERGENT Consult: No Notified: Yes Date Notified: 03/18/22 Time Notified: 10:30 Method of Notification: ED Physician Initiated 03/19/22 16:37 Consult: Cardiology Routine Consulting Provider: Annelise Merida Reason for Consult: Hypoxia d/t eisenmengers syndrome EMERGENT Consult: No Notified: Yes Date Notified: 03/19/22 Time Notified: 16:38 Method of Notification: Verbal 03/20/22 06:29 Consult: Community Youth Secretary / Pulmonary Medicine Routine Consulting Provider: Sandeep Huynh Reason for Consult: Critical care EMERGENT Consult: No Notified: Yes Date Notified: 03/20/22 Time Notified: 06:29 Method of Notification: Verbal Reason For Visit: GI BLEED Diagnosis Discharge Diagnosis (1) Acute GI bleeding: Status: Acute Code(s): K92.2 - Gastrointestinal hemorrhage, unspecified (2) Orthostatic hypotension: Status: Acute Code(s): I95.1 - Orthostatic hypotension Plan Patient is a 61-year-old gentleman with complicated past medical history including VSD with Eisenmenger syndrome with severe pulmonary hypertension presented with GI bleed 1. Acute GI bleed secondary to upper GI bleed Stool occult blood positive. Patient underwent EGD found to have multiple nonbleeding angiectasis in the stomach treated with thermal therapy. Also had colonoscopy poor prep one 5 mm polyp in the sigmoid colon removed with a cold snare. Acute GI bleed has resolved. 2. Acute blood loss anemia ? Secondary to acute blood loss anemia from above. ? Hemoglobin on admission was 5.6. Patient transfused with 2 unit PRBC 03/24: Hemoglobin is 7.5. Platelet count 1 29,000. 03/25 patient is discharged on ferrous sulfate. 3. Shock ? Due to combination of hypovolemia as well as patient medications Ambrisentan as well as tadalafil. ? Patient managed with fluid blood transfusion as well as pressor therapy which has since been weaned off 03/25 shock resolved. 4. Acute on chronic hypoxic respiratory failure ? Secondary to severe pulmonary hypertension as a result of VSD with Eisenmenger syndrome. Patient currently being managed in ICU. On noninvasive ventilation Being followed by pulmonary medicine ? 03/24: Continue Lasix as per tolerated, tadalafil. Bronchodilators. Patient on high flow oxygen 93% FiO2, 60 L/min 03/25 patient is still needs AIRVO 67% FiO2, flow rate 60 L/min. Patient accept ed home with hospice care. Hospice care is going to set up oxygen at home and and equipments at home. 5. COPD ? Not exacerbation 6. Obstructive sleep apnea ? Untreated 7. Tobacco dependence - Counseled on cessation, offered nicotine patch for tobacco cravings 8. Patient has Eisenmenger syndrome with severe pulmonary hypertension from VSD with pulmonary stenosis and regurgitation: 2D echo in September 2020 showed moderately dilated RV, moderately enlarged right atrium, 1-2+ pulmonary stenosis with eccentric 1-2+ pulmonary regurgitation. RVSP estimated 84 mmHg consistent with severe pulmonary hypertension. Echolucency in the mid interventricular septum of approximately 0.2 cm history of VSD. EF 60%, mildly dilated LV. Patient follows [facility] pulmonary hypertension specialist. Patient on tadalafil and bronchodilator. 9. DVT prophylaxis ? Bilateral SCDs Discharge medication reconciliation done. Discharge follow-up instructions completed. Discharge process discussed with the patient and all questions were answered to patient's satisfaction. Total time spent, exact 35 minutes on discharge meds reconciliation, examination, coordination of care with nurses and ancillary staff, review of imaging and blood test and discussion with the patient on follow-up instructions. Medications at Discharge Home Medications morphine (PF) 50 mg/50 mL (1 mg/mL) intravenous REPLENISHMENT SPECIALIST syringe 6.5 mg SQ DAILY 01/20/16 ambrisentan 10 mg tablet (Letairis) 10 mg PO QDAY #90 tabs 06/12/20 albuterol sulfate 2.5 mg/3 mL (0.083 %) solution for nebulization 2.5 mg (3 mL) inhalation Q4H PRN Dyspnea/Wheezing/Sob #180 mL 06/10/21 albuterol sulfate 90 mcg/actuation aerosol inhaler (Ventolin HFA) 2 puff inhalation Q4H PRN shortness of breath or wheezing #18 grams 06/10/21 glycopyrrolate 9 mcg-formoterol 4.8 mcg HFA aerosol inhaler (Bevespi Aerosphere) 2 puff inhalation QAM AND QPM #1 inh 11/03/21 aspirin 81 mg tablet,delayed release (Adult Aspirin Regimen) 81 mg PO Q OTHER DAY 03/03/22 ferrous sulfate 325 mg (65 mg iron) tablet 325 mg PO DAILY 03/03/22 oxycodone-acetaminophen 5 mg-325 mg tablet 1 tab PO TID PRN Pain 03/03/22 potassium chloride 10 mEq tablet,extended release 10 meq PO DAILY 03/03/22 tadalafil (pulm. hypertension) 20 mg tablet (pulmonary hypertension) 40 mg PO DAILY pulmonary htn 03/19/22 Weight / BMI Weight Weight: 254 lb 13.67 oz Body Mass Index (BMI) 32.3 ABG / Lab / Microbiology Data Result Diagrams: 03/25/22 04:30 03/25/22 04:30 Laboratory: Laboratory Results - last 24 hr 03/25/22 04:30: WBC 4.3 L, RBC 2.77 L, Hgb 7.5 L, Hct 24.2 L, MCV 87.4, MCH 27.1, MCHC 31.0 L, RDW Std Deviation 44.7 H, RDW Coeff of Reece 14.0, Plt Count 132 L, MPV 9.7, Immature Gran % (Auto) 0.700, Neut % (Auto) 67.3, Lymph % (Auto) 17.4 L, [place] % (Auto) 9.5, Eos % (Auto) 4.9, Baso % (Auto) 0.2, Absolute Neuts (auto) 2.9, Absolute Lymphs (auto) 0.75 L, Nucleated RBC % 0 03/25/22 04:30: Sodium 150 H, Potassium 3.9, Chloride 105, Carbon Dioxide 38.0 H , Anion Gap 7, BUN 12, Creatinine 0.56 L, Estim Creat Clear Calc 143.03, Est GFR (MDRD) Af Amer 192, Est GFR (MDRD) Non-Af 159, BUN/Creatinine Ratio 21.5 H, Glucose 106, Calcium 8.3 L Microbiology: Microbiology 03/18/22 09:47 Stool Stool Occult Blood (ANYI) - Final Occult Blood Positive Meaningful Use Info Meaningful Use Diagnoses (Choose all that apply): None applicable Discharge Plan Admission Admit Date/Time: 03/18/22 10:25 Primary Reason for Your Visit: acute on chornic hypoxic resp failure Attending Provider: Manuel Casey [facility] Providers: Annelise Merida ; Sandeep Huynh ; Jeffry Yo ; Shola Hernandez Discharge Orders/Prescriptions Prescriptions: Continued aspirin [Adult Aspirin Regimen] 81 mg tablet,delayed release (DR/EC) 81 mg PO Q OTHER DAY Letairis 10 mg tablet 10 mg PO QDAY Qty: 90 3RF albuterol sulfate 2.5 mg /3 mL (0.083 %) solution for nebulization 2.5 mg INHALATION Q4H PRN (Reason: Dyspnea/Wheezing/Sob) Qty: 180 3RF Ventolin HFA 90 mcg/actuation HFA aerosol inhaler 2 puff INHALATION Q4H PRN (Reason: shortness of breath or wheezing) Qty: 18 6RF potassium chloride 10 mEq tablet extended release 10 meq PO DAILY oxycodone-acetaminophen 5-325 mg tablet 1 tab PO TID PRN (Reason: Pain) ferrous sulfate 325 mg (65 mg iron) tablet 325 mg PO DAILY Label Comments: TAKE 1 TABLET BY MOUTH EVERY DAY morphine (PF) 5 MG/ML pt controlled analgesia syring 6.5 mg SQ DAILY tadalafil (pulm. hypertension) 20 mg Tablet 40 mg PO DAILY Bevespi Aerosphere 9-4.8 mcg HFA aerosol inhaler 2 puff inhalation QAM AND QPM Qty: 1 3RF [facility] - Disposition Disposition (needs filled in before D/C Order can be placed): Hospice in Home Charges/Coding Visit Charges Inpatient E&M: 49215 Disch Hosp
[2022-03-25] MEDS: Furosemide 20 MG/2 ML VIAL IV (10:06)
[2022-03-25] MEDS: TADALAFIL 20 MG TABLET 40 MG PO (10:06)
--- NOTE | 2022-03-25 10:12 | CASEMGMT ---
SW faxed d/c instructions and DNR to Hospice. SW called patient's , Hayden and asked that she call SW directly once all the equipment is delivered. Hayden said that she was told it would be between 1 and 3 today. Hayden will call SW once equipment is delivered and SW will then coordinate with Hospice. Betsy Bowling WELD TECHNICIAN JOSH
--- NOTE | 2022-03-25 13:36 | CASEMGMT ---
HECTOR received a call from patient's , Hayden. Hayden said all of the equipment has been delivered. HECTOR let her know SW will notify Hospice and then let her know what time he will get picked up. HECTOR called Esme and let her know patient is ready to go. Esme will check on their mobile unit's availability and get back to HECTOR. Betsy MORENO
--- NOTE | 2022-03-25 14:57 | CASEMGMT ---
HECTOR spoke with Esme at Hospice and let her know all equipment has been delivered. Esme said she will talk with their mobile unit about their schedule. HECTOR received a call back from [facility] and their mobile unit will not be available. Esme said she is not sure it will work at home if patient will not wear a mask due to the amount of O2 he requires. HECTOR said SW will talk with patient and get back to her. Esme also asked if RN could trial 20L with venti mask with patient to see if he can tolerate it. HECTOR went to ICU and spoke with patient. HECTOR asked patient about wearing a mask for breathing. Patient said if he has to he will wear a mask if it will get him home. HECTOR went to ICU and spoke with LUTHER Collado. She will work on trialing patient on venti mask 20L. HECTOR called [facility]me and let her know patient will wear a mask. Esme then asked HECTOR if she could have the respiratory therapists phone number so their covering respiratory therapist can talk with him/her. HECTOR gave Esme the ICU respiratory therapists number. HECTOR called patient's back and let her know she has some time before patient will be home as some final details have to be worked out. Betsy Bowling HIGH MAN JOSH
--- NOTE | 2022-03-25 15:49 | CASEMGMT ---
RN trialed patient on 20L and he did well. SW notified Esme at Hospice. Their respiratory therapist spoke with [facility] respiratory therapist. SW called [facility] and they can only do 15L. HECTOR spoke with RN who then trialed patient on 15L non re-breather and patient did fine. HECTOR coordinated with Esme at [facility] and Dina at [facility] to have patient picked up at 7p via cot. He will be transported on 15L via non-rebreather. Ibeth is the Hospice nurse that will be at patient's home when he gets there. [facility] has Ibeth's name, and 2 phone numbers to contact her. HECTOR notified RN, patient, and his of the package pick up time. Plan: d/c home on [facility]. [facility] transported via cot and 15L non-rebreather mask. Betsy MORENO
== END 2022-03-25 19:15 | disposition hospice, home (50) | DRG 377 ==
LOC: ED 10:28 → PCU 11:17 → ICU 03-20 02:52
PROVIDERS: Hospitalist; Internal Medicine; Internal Medicine Critical Care Medicine; Internal Medicine Gastroenterology; Admitting Provider Family Medicine; Emergency Provider Emergency Medicine; Visit Provider Internal Medicine
PROC: 0DJ08ZZ Inspection of Upper Intestinal Tract, Via Natural or Artificial Opening Endoscopic (ICD-10-PCS; CPT 43235; principal; 2022-03-18 12:40)
PROC: 0DJD8ZZ Inspection of Lower Intestinal Tract, Via Natural or Artificial Opening Endoscopic (ICD-10-PCS; CPT 45378; principal; 2022-03-19 12:10)
DX: K92.2 Gastrointestinal hemorrhage, unspecified (principal); J96.21 Acute and chronic respiratory failure with hypoxia; R57.0 Cardiogenic shock; Q25.6 Stenosis of pulmonary artery; I42.0 Dilated cardiomyopathy; Q21.0 Ventricular septal defect; D62 Acute posthemorrhagic anemia; I27.20 Pulmonary hypertension, unspecified; D50.9 Iron deficiency anemia, unspecified; F17.210 Nicotine dependence, cigarettes, uncomplicated; I50.812 Chronic right heart failure; J44.9 Chronic obstructive pulmonary disease, unspecified; I27.83 Eisenmenger's syndrome; I11.0 Hypertensive heart disease with heart failure; I27.81 Cor pulmonale (chronic); I95.1 Orthostatic hypotension; K63.5 Polyp of colon; G47.33 Obstructive sleep apnea (adult) (pediatric); E86.1 Hypovolemia; K31.819 Angiodysplasia of stomach and duodenum without bleeding; G89.29 Other chronic pain; E66.9 Obesity, unspecified; Z66 Do not resuscitate; Z68.36 Body mass index [BMI] 36.0-36.9, adult; Z79.899 Other long term (current) drug therapy; Z79.82 Long term (current) use of aspirin
CPT/HCPCS: 36415; 36600; 71045; 80048; 82274; 82803; 83735; 85014; 85018; 85025; 85610; 85730; 86644; 86850; 86900; 86901; 86920; 86922; 88305; 93005; 94640; 94660; 97802; 97803; 99285; 99406; J7040; J7050; J7120; P9016; P9040; A4216; C1751; J1940; J2405